=== PATIENT | female | born 1980 | race Two or more races ===

== ENCOUNTER 2020-09-12 04:24 | Emergency (ER) | payer OTHER, SELFPAY ==
[2020-09-12 04:33] VITALS: BP 135/97; PULSE 98; RESP 18; TEMP 36.9; O2SAT 99; BMI 24.2
--- NOTE | 2020-09-12 04:52 | ED.GENADULT ---
HPI - General Adult General Chief complaint: General Medical Stated complaint: Withdrawals Time Seen by Provider: 09/12/20 04:51 Source: patient Mode of arrival: ambulatory Limitations: no limitations History of Present Illness HPI narrative: 40-year-old female came in for evaluation of opiate withdrawal. Patient is receiving methadone at the methadone clinic currently take 2 mg a day, patient is at a tapering program went from 120 mg a day to now 2 mg a day over a year patient thinking it is too fast and rapid to taper down the dosage, patient has been having symptoms of opiate withdrawal of generalized body ache, runny nose, abdominal pain. Patient is asking for medicine to relax her. Related Data Allergies Allergy/AdvReac Type Severity Reaction Status Date / Time No Known Allergies Allergy Verified 09/12/20 04:32 Review of Systems Review of Systems: All other systems are reviewed and are negative Constitutional: Reports as per HPI and Reports no additional constitutional complaints Eyes: Reports as per HPI and Reports no additional eye complaints Reports system reviewed and no additional complaints, except as documented Cardiovascular: Reports as per HPI and Reports no additional cardiovascular complaints Respiratory: Reports as per HPI and Reports no additional respiratory complaints Gastrointestinal: Reports as per HPI and Reports no additional gastrointestinal complaints Genitourinary: Reports no additional female genitourinary complaints Musculoskeletal: Reports no additional musculoskeletal complaints Skin/Breast: Reports system reviewed and no additional complaints, except as docu Psychiatric: Reports no additional psychiatric complaints Endocrine: Reports no additional endocrine complaints Hematologic/Lymphatic: Reports no additional hematologic/lymphatic complaints Allergic/Immunologic: Reports no additional allergic/immunologic complaints Reports system reviewed and no additional complaints, except as documented and Reports Abnormal speech present [facility] Past Medical History Medical History Asthma Fibromyalgia Social History Social History Advance Directives: No Advance Directives Information Provided: No Physical Exam Vital Signs: Vital Signs: Last Vital Signs Temp 98.4 F 09/12/20 04:33 Pulse 86 09/12/20 06:12 Resp 18 09/12/20 04:33 BP 118/82 09/12/20 06:12 Pulse Ox 99 09/12/20 04:33 Body Mass Index 24.2 Vital signs have been reviewed as appeared to be correct. Blood pressure normal. Heart rate normal. Respiration rate normal. Temperature normal. Oxygen saturation normal. Appearance: Alert. Oriented X3. No acute distress. Head: Normal external exam. Normocephalic. Atraumatic. No Chapman signs noted. No raccoon eyes noted Eyes: PERRLA. EOMI. Conjunctiva and sclera normal. Eyelids normal. ENT: TM's Normal. Pharynx normal. Uvula midline. Moist mucous membranes. No trismus noted. No drooling noted. No muffled voice noted. Neck: Normal inspection. Neck supple. FROM. No adenopathy. Thyroid Normal. No meningeal signs. No neck mass noted. CVS: Normal heart rate and rhythm. Heart sound normal. No murmurs noted. Pulses normal throughout. Respiratory: No respiratory distress. Painless inspiration. Breath sounds normal. No wheezes/rales/rhonchi noted. Chest nontender. No accessory muscle usage noted or decreased air movement noted. Abdomen: Soft and nontender. Bowel sounds normal in all 4 quadrants. No distention noted. No organomegaly noted. No visible injury noted. Back: No CVA tenderness. Full range of motion noted. Skin: Skin warm and dry. Normal skin color. Normal skin turgor. No rashes/lesions/lacerations noted. Extremities: No lower extremity edema. Extremities exhibit normal range of motion. Extremities nontender. Neuro: Oriented X 3. No motor deficit. No sensory deficit. Reflexes normal. Course Course Course Narrative: Assessment and plan. Rapid taper of methadone from 120 mg to 2 mg daily managed by methadone clinic causing patient's symptoms. Patient was instructed to discuss with her physician at the methadone clinic to consider the tapering program, patient received Ativan/clonidine/Flexeril in the emergency department which relieved some of the symptoms. Discharge Plan Discharge Clinical Impression: Withdrawal from opioids Patient Disposition: Home, Self-Care Instructions: Methadone (By mouth) Additional Instructions: Follow-up with the methadone clinic today and discuss with your physician your symptoms. Referrals: Omaira Henderson MD [Primary Care Provider] - 2 days
[2020-09-12] MEDS: LORazepam 1 MG TABLET PO (05:12)
--- NOTE | 2020-09-12 05:14 | PC.NURSE ---
This RN resuming care. Pt medicated with Ativan per JUN. Pt resting in bed at this time, provided with a warm blanket for comfort. Continue to monitor.
--- NOTE | 2020-09-12 05:45 | PC.NURSE ---
Pt reports no relief of anxiety after Ativan at this time. Per pt, last time this happened they gave me Flexeril and Clonidine. MD aware.
--- NOTE | 2020-09-12 05:54 | PC.NURSE ---
MD at bedside discussing plan of care.
[2020-09-12 06:12] VITALS: BP 118/82; PULSE 86
[2020-09-12] MEDS: cloNIDine HCL 0.1 MG TABLET PO (06:12)
[2020-09-12] MEDS: Cyclobenzaprine HCl 10 MG TABLET PO (06:13)
--- NOTE | 2020-09-12 06:13 | PC.NURSE ---
Pt medicated per MAR. VSS.
--- NOTE | 2020-09-12 06:17 | PC.NURSE ---
Pt requesting prescriptions for Flexeril and Clonidine, states they are comfort medications and won't interfere with Methadone. This RN advising pt the best course of action is to adjust her Methadone at the clinic today and have a f/u appt with her PCP. Pt aware of plan to DC home.
== END 2020-09-12 06:22 | disposition home or self-care (01) ==
LOC: HO.ED 05:01
PROVIDERS: Emergency Provider Emergency Medicine; PCP Internal Medicine
DX: F11.23 Opioid dependence with withdrawal (principal)
CPT/HCPCS: 99283

== ENCOUNTER 2022-02-24 12:17 | Emergency (ER) | payer OTHER, SELFPAY ==
--- NOTE | ~2022-02-24 | XR_ITS ---
EXAMINATION: XR CHEST CLINICAL INFORMATION: Pain on inspiration COMPARISON: July 29, 2017 TECHNIQUE: PA view of the chest was obtained. FINDINGS: No significant abnormality is noted involving the heart, lungs, mediastinum, bony thorax or soft tissues. XR/XR chest 1V IMPRESSION: No acute disease.
[2022-02-24 13:33] VITALS: BP 127/72; PULSE 54; RESP 16; TEMP 36.4; O2SAT 100; BMI 26.6
--- NOTE | 2022-02-24 16:17 | ECG_ITS ---
Test Reason : BACK PAIN Blood Pressure : / mmHG Vent. Rate : 050 BPM Atrial Rate : 050 BPM P-R Int : 156 ms QRS Dur : 070 ms QT Int : 420 ms P-R-T Axes : 060 009 030 degrees QTc Int : 382 ms Sinus bradycardia Nonspecific T wave abnormality Abnormal ECG No previous ECGs available Referred By: Alyson Mayen Electronically Signed By:MARTHA CARMONA MD
--- NOTE | 2022-02-24 17:09 | ED_ITS ---
HPI - General Adult General Chief complaint: Back Pain/Injury Stated complaint: Back pain Time Seen by Provider: 02/24/22 16:00 Source: patient Mode of arrival: ambulatory History of Present Illness HPI narrative: 41-year-old female with a past medical history of asthma, fibromyalgia, presenting to the ED complaining of intermittent right-sided mid back pain x few days with intermittent radiation to chest. Admits to heavy lifting/cleaning which exacerbated symptoms. Reports similar symptoms in the past. Pain worse with movement, breathing, and palpation. Also reports dysuria. Denies fever, chills, SOB, abdominal pain, nausea/vomiting, history of clots, recent travel, hematuria or flank pain Onset (ago): day(s) Related Data Previous Rx's Medication Instructions Recorded acetaminophen 500 mg tablet 500 mg PO Q6H PRN fever or pain 02/24/22 (Tylenol Extra Strength) #14 tabs cyclobenzaprine 5 mg tablet 5 mg PO Q8H PRN pain (scale score 02/24/22 7-10) 5 days #14 tabs lidocaine 5 % topical patch 1 patch topical DAILY PRN pain #30 02/24/22 (Lidoderm) ea naproxen 500 mg tablet 500 mg PO BID PRN pain 10 days #20 02/24/22 tabs nitrofurantoin 100 mg PO Q12H 7 days #14 caps 02/24/22 monohydrate/macrocrystals 100 mg capsule (Macrobid) Allergies Allergy/AdvReac Type Severity Reaction Status Date / Time No Known Allergies Allergy Verified 09/12/20 04:32 Review of Systems Review of Systems: Constitutional: No Fever, No Chills, No Fatigue, No Malaise ENT/Mouth: No Ear Pain, No Nasal Congestion, No sore throat, No Rhinorrhea, No Swallowing Difficulty Eyes: No Eye Pain, No Swelling, No Redness, No Vision Changes Cardiovascular: +intermittent Chest Pain, No SOB, No Dyspnea on Exertion, No Orthopnea, No Edema, No Palpitations Respiratory: No Cough, No Sputum, No Dyspnea Gastrointestinal: No Nausea, No Vomiting, No Diarrhea, No Constipation, No Abdominal pain Genitourinary: No Dysuria, No Urinary Incontinence/retention, No Urgency, No Flank Pain Musculoskeletal: + joint pain, No Myalgias, No Joint Swelling Skin: No Skin Lesions, No rash Neuro: No Weakness, No Numbness, No Paresthesias, No Headache Yes all other systems are reviewed and are negative Constitutional: Constitutional: Reports as per [facility] Past Medical History Attestation statement: The following information was validated with the patient. Medical History Asthma Fibromyalgia Social History Social History Advance Directives: No Advance Directives Information Provided: No Physical Exam ED Vital Signs: Vital Signs - 24 hr 02/24/22 13:33 Temperature 97.6 F Pulse Rate 54 Respiratory Rate 16 Blood Pressure 127/72 Pulse Oximetry 100 Oxygen Delivery Method Room Air BMI result Body Mass Index 26.6 Const General: cooperative, healthy appearing and no acute distress Orientation/consciousness: patient oriented x3 Limitations: no limitations HENMT Head: Yes normal to inspection and Yes atraumatic Ears: hearing grossly normal bilaterally General nose exam: Normal external nose present Face and sinus: Yes normal facial exam Eyes General: appearance normal, both eyes and all related structures EOM: EOMs intact bilaterally Neck Neck: Yes normal visual inspection and Yes no meningeal signs Chest Chest palpation & inspection: normal inspection of the chest and no crepitus Resp Effort & Inspection: normal respiratory effort and no respiratory distress Auscultation: clear to auscultation bilaterally, no crackles, no rales, no rhonchi and no wheezes Cardio Rate: regular rate Heart sounds: S1 normal heart sound present and S2 normal heart sound present GI Inspection: Yes normal to inspection Palpation (GI): Soft to palpation, nontender, no guarding and not rigid General: Yes no CVA tenderness Back/Spine/Pelvis Other: No midline thoracic/lumbar spinous tenderness/step-off or deformity. +mild right -sided subscapular tenderness to palpation reproducing subjective complaint. Worse with right arm movement. Mild right trapezius muscle tenderness to palpation. Neurovascular intact distally Back: no CVA tenderness Skin Rashes: no rashes Wounds: no wounds Neuro General: patient oriented x3, tone normal and no meningeal signs Gait exam (Neuro): Normal gait present Extrem General: Yes normal to inspection Course Course Course Narrative: XR chest 1V IMPRESSION: No acute disease. ? -1800--UA contaminated but with moderate blood/rbc's, wbc's and leuk esterase > patient admits she is currently spotting as just had Nexplanon placed. Due to being symptomatic will treat for UTI Results discussed with patient including worrisome signs and symptoms and strict return precautions, and when to return to the emergency department. They verbalized understanding and feel safe for discharge at this time. Medications Administered Discontinued Medications Generic Name Dose Route Start Last Admin Trade Name Yelean PRN Reason Stop Dose Admin Cyclobenzaprine HCl 10 mg 02/24/22 17:16 02/24/22 17:32 Cyclobenzaprine Hcl 10 Mg Tablet PO 02/24/22 17:17 10 mg ONCE ONE Administration Ketorolac Tromethamine 30 mg 02/24/22 17:16 02/24/22 17:33 Ketorolac Tromethamine 30 Mg/Ml Vial IM 02/24/22 17:17 30 mg ONCE ONE Administration Medical Decision Making [facility] Narrative Medical decision making narrative: 41-year-old female with a past medical history of asthma, fibromyalgia, presen ting to the ED complaining of intermittent right-sided mid back pain x few days with intermittent radiation to chest. On exam vital signs stable, NAD, nontoxic appearing, pain reproducible on exam, lungs CTA, no pedal edema. Concern for MSK pain/strain. R/o UTI. Low suspicion for PE/pneumonia, ACS or cholecystitis/lithiasis. Plan: EKG, UA, & CXR Medical Records Medical records reviewed: Yes I reviewed the patient's medical records. Lab Data Lab results reviewed: Yes I reviewed the patient's lab results. Labs: Lab Results 02/24/22 Range/Units 17:27 Urine Color Yellow Urine Appearance Cloudy Urine pH 5.5 (5.0-9.0) Ur Specific [place] >= 1.030 H (1.005-1.025) Urine Protein Negative (Neg-Trace) mg/dL Urine Glucose (UA) Negative (Negative) mg/dL Urine Ketones Trace (Negative) mg/dL Urine Blood Moderate (2+) H (Negative) Urine Nitrite Negative (Negative) Ur Leukocyte Esterase Small (1+) H (Negative) Urine RBC >20 H (0-2) /HPF Urine WBC 6-10 H (0-5) /HPF Ur Squamous Epith Cells 6-10 (0-2) /HPF Urine Bacteria None Seen (None Seen) Hyaline Casts 0-2 (0-2) /LPF ECG Data Attestation: I personally reviewed and interpreted this ECG as follows: Interpretation: EKG sinus bradycardia rate 50, MO interval 156, QTc 382. No STEMI Discharge Plan Discharge Clinical Impression: Thoracic back pain Patient Disposition: Home, Self-Care Instructions: Back Pain (ED) Additional Instructions: your X-ray is unremarkable. You have a urine infection. Macrobid is an antibiotic take as prescribed Your EKG in unremarkable Your pain is likely musculoskeletal Flexeril is a muscle relaxer, take at night as it makes you drowsy, do not drive, drink alcohol, or operate machinery while taking it Toradol as an anti-inflammatory / pain medication, take with food Lidoderm patches are numbing patches, apply to painful area In addition take Tylenol at home If symptoms persist or worsen, pain becomes unbearable, you developed urinary retention or incontinence, or weakness return to the ED Prescriptions: New acetaminophen [Tylenol Extra Strength] 500 mg tablet 500 mg PO Q6H PRN (Reason: fever or pain) Qty: 14 0RF lidocaine [Lidoderm] 5 % adhesive patch,medicated 1 patch topical DAILY MDD remove after 12 hours PRN (Reason: pain) Qty: 30 0RF Rx Instructions: leave on most painful area for up to 12 hrs naproxen 500 mg tablet 500 mg PO BID PRN (Reason: pain) 10 Days Qty: 20 0RF cyclobenzaprine 5 mg tablet 5 mg PO Q8H PRN (Reason: pain (scale score 7-10)) 5 Days Qty: 14 0RF nitrofurantoin monohyd/m-cryst [Macrobid] 100 mg capsule 100 mg PO Q12H 7 Days Qty: 14 0RF Rx Instructions: must administer with a meal/food Referrals: Yara Hawley MD [Primary Care Provider] - 5 days
[2022-02-24] MEDS: Cyclobenzaprine HCl 10 MG TABLET PO (17:32)
[2022-02-24] MEDS: Ketorolac Tromethamine 30 MG/ML VIAL IM (17:33)
[2022-02-24 17:45] LABS: Appearance Urine Cloudy; Color Urine Yellow; Glucose Urine UA Negative (Negative); Leukocyte Esterase Urine Small (1+) (Negative); Nitrite Urine Negative (Negative); PH 5.5 (5.0-9.0); Specific Gravity - Urine >= 1.030 (1.005-1.025); UMIC TRIGGER UACC YES; Urine Blood Moderate (2+) (Negative); Urine Ketones Trace mg/dL (Negative); Urine Protein Negative (Neg-Trace)
[2022-02-24 17:47] LABS: Bacteria Urine None Seen (None Seen); Hyaline Casts Urine 0-2 /LPF (0-2); RBC Urine >20 /HPF (0-2); UACC Culture Trigger YES
== END 2022-02-24 18:13 | disposition home or self-care (01) ==
PROVIDERS: Physician Assistant; Emergency Provider Emergency Medicine; PCP Internal Medicine
DX: M54.6 Pain in thoracic spine (principal); N39.0 Urinary tract infection, site not specified
CPT/HCPCS: 71045; 81001; 87086; 93005; 96372; 99284; J1885

== ENCOUNTER 2022-04-12 11:10 | Emergency (ER) | payer OTHER, SELFPAY ==
--- NOTE | 2022-04-12 11:38 | ED_ITS ---
HPI - URI/Sore Throat General Chief Complaint: Headache Stated Complaint: sinus pain Time Seen by Provider: 04/12/22 13:24 Source: patient Mode of arrival: ambulatory Limitations: no limitations History of Present Illness HPI Narrative: 41-year-old female with a history of hypothyroidism, opiate use disorder on methadone here with 1 week of sinus pressure, sinus pain headache, congestion. Did call her primary care but they were unable to see her so she was referred into the emergency room for further evaluation. Patient denies any fevers, chills, cough, shortness of breath, chest pain. Related Data Previous Rx's Medication Instructions Recorded acetaminophen 500 mg tablet 500 mg PO Q6H PRN fever or pain 02/24/22 (Tylenol Extra Strength) #14 tabs cyclobenzaprine 5 mg tablet 5 mg PO Q8H PRN pain (scale score 02/24/22 7-10) 5 days #14 tabs lidocaine 5 % topical patch 1 patch topical DAILY PRN pain #30 02/24/22 (Lidoderm) ea naproxen 500 mg tablet 500 mg PO BID PRN pain 10 days #20 02/24/22 tabs nitrofurantoin 100 mg PO Q12H 7 days #14 caps 02/24/22 monohydrate/macrocrystals 100 mg capsule (Macrobid) cetirizine 10 mg tablet 10 mg PO DAILY #60 tabs 04/12/22 doxycycline monohydrate 100 mg 100 mg PO BID #20 caps 04/12/22 capsule fluticasone propionate 50 2 spray intranasal DAILY #16 grams 04/12/22 mcg/actuation nasal spray,suspension (Flonase Allergy Relief) Allergies Allergy/AdvReac Type Severity Reaction Status Date / Time No Known Allergies Allergy Verified 09/12/20 04:32 Review of Systems Review of Systems: Yes all other systems are reviewed and are negative Constitutional: Constitutional: Reports no additional constitutional complaints, Denies body ache(s), Denies chills, Denies fever(s), Denies headache(s) and Denies weakness Eyes: Eyes: Reports no additional eye complaints and Denies change in vision ENT: Reports system reviewed and no additional complaints, except as documented, Denies dizziness, Denies headache(s), Reports nasal congestion, Denies nasal discharge, Denies neck pain, Reports sinus pain and Reports sinus pressure Cardiovascular: Cardiovascular: Reports no additional cardiovascular complaints, Denies chest pain, Denies leg edema and Denies dyspnea Respiratory: Respiratory: Reports no additional respiratory complaints, Denies cough and Denies dyspnea Gastrointestinal: Gastrointestinal: Reports no additional gastrointestinal complaints, Denies abdominal pain, Denies diarrhea, Denies nausea and Denies vomiting Genitourinary: Genitourinary: Reports no additional female genitourinary complaints and Denies urinary incontinence Musculoskeletal: Musculoskeletal: Reports no additional musculoskeletal complaints, Denies back pain, Denies arthralgias, Denies joint swelling, Denies neck pain, Denies numbness and Denies tingling Integumentary/Breasts: Skin/Breast: Reports system reviewed and no additional complaints, except as docu and Denies rash Neurologic: Reports system reviewed and no additional complaints, except as documented, Denies Abnormal speech present, Denies dizziness, Denies headache(s), Denies numbness, Denies tingling and Denies weakness PMFSH Past Medical History Attestation statement: The following information was validated with the patient. Source: old records reviewed and nursing notes reviewed Medical History Asthma Fibromyalgia Social History Social History Advance Directives: No Advance Directives Information Provided: Yes Physical Exam Vital Signs: Vital Signs: Last Vital Signs Temp 98.2 F 04/12/22 11:39 Pulse 68 04/12/22 11:39 Resp 18 04/12/22 11:39 BP 116/66 04/12/22 11:39 Pulse Ox 100 04/12/22 11:39 O2 Del Method 04/12/22 11:39 BMI result Body Mass Index 26.6 Const: General: cooperative, healthy appearing, comfortable and no acute distress Orientation/consciousness: patient oriented x3 Limitations: no limitations HEENT: Head: Yes normal to inspection Ears: hearing grossly normal bilaterally and TM abnormal (Bilateral TM bulging with no erythema) General nose exam: Normal external nose present and Other nasal findings present (Nasal turbinate erythema) Face and sinus: Yes normal facial exam and Yes other (Sinus tenderness to palpate) Mouth: Normal oral and palatal mucosa present Throat: Yes posterior oropharynx normal, Yes tonsils normal and Yes uvula midline Eyes: General: appearance normal, both eyes and all related structures Pupils: Equal, round and reactive pupils present Neck: Neck: Yes normal visual inspection, Yes full ROM, Yes no lymphadenopathy and Yes no meningeal signs Chest: Chest palpation & inspection: normal inspection of the chest Resp: Effort & Inspection: normal respiratory effort Auscultation: clear to auscultation bilaterally Cardio: Rate: regular rate Rhythm: regular rhythm Peripheral pulses: Peripheral pulses 2+ throughout GI: Inspection: Yes normal to inspection Palpation (GI): Soft to palpation and nontender Auscultation: normal bowel sounds Back/Spine/Pelvis: Thoracic/Lumbar Spine: thoracic and lumbar spine normal to inspection Skin: General skin exam: no rashes or lesions noted Neuro: General: patient oriented x3, no meningeal signs, no focal motor deficits and normal sensation to monofilament Cranial nerves: Yes Equal, round and reactive pupils present Cognition (Neuro): normal cognition Speech: No Abnormal speech present Gait exam (Neuro): Normal gait present Motor exam (neuro): 5/5 motor strength present throughout Extrem: General: Yes normal to inspection Course Course Course Narrative: This is a rapid medical exam. Deferred additional HPI, ROS, PE to primary provider. 41 yo female with past medical history of hypothyroidism, OUD on meth adone, fibromyalgia here with one week of sinus pressure/pain, frontal headache. No fevers, chills. Will send testing for flu, covid and rsv. VSS Reevaluation(s) Reevaluation #1: 1330-testing for flu, COVID, RSV are negative. Exam is consistent with sinusitis. Patient will be treated with antibiotics due to symptoms greater than 5 days. Patient also requesting allergy refill and Flonase refill. Reviewed worrisome signs and symptoms of when to return to the emergency room. Comfortable plan for discharge home. Medical Decision Making Medical Decision Making [facility] Narrative: 41 yo female with past medical history of hypothyroidism, OUD on methadone, fibromyalgia here with one week of sinus pressure/pain, frontal headache. No fevers, chills. Will send testing for flu, covid and rsv. Exam is consistent with sinusitis Differential Diagnosis Differential Diagnoses: The differential diagnosis associated with the presentation includes Sinusitis, viral syndrome, otitis media Lab Data [facility] Lab Attestation statement: I reviewed the patient's lab results. Labs: Lab Results 12/29/22 Range/Units 11:52 Influenza Type A (PCR) NEGATIVE (Negative) Influenza Type B (PCR) NEGATIVE (Negative) RSV RNA Qual (PCR) NEGATIVE (Negative) SARS-CoV-2 RNA (RT-PCR) NEGATIVE (Negative) Discharge Plan Discharge Clinical Impression: Sinusitis Patient Disposition: Home, Self-Care Instructions: Sinusitis (ED) Additional Instructions: Testing for flu, COVID, RSV are negative Prescriptions: New doxycycline monohydrate 100 mg capsule 100 mg PO BID Qty: 20 0RF fluticasone propionate [Flonase Allergy Relief] 50 mcg/actuation spra y,suspension 2 spray intranasal DAILY Qty: 16 0RF Rx Instructions: administer into each nostril cetirizine 10 mg tablet 10 mg PO DAILY Qty: 60 0RF No Action acetaminophen [Tylenol Extra Strength] 500 mg tablet 500 mg PO Q6H PRN (Reason: fever or pain) Qty: 14 0RF lidocaine [Lidoderm] 5 % adhesive patch,medicated 1 patch topical DAILY MDD remove after 12 hours PRN (Reason: pain) Qty: 30 0RF Rx Instructions: leave on most painful area for up to 12 hrs naproxen 500 mg tablet 500 mg PO BID PRN (Reason: pain) 10 Days Qty: 20 0RF cyclobenzaprine 5 mg tablet 5 mg PO Q8H PRN (Reason: pain (scale score 7-10)) 5 Days Qty: 14 0RF nitrofurantoin monohyd/m-cryst [Macrobid] 100 mg capsule 100 mg PO Q12H 7 Days Qty: 14 0RF Rx Instructions: must administer with a meal/food Referrals: Yara Hawley MD [Primary Care Provider] - Interventions: ED Discharge Assessment Last Done: 04/12/22 13:29
[2022-04-12 11:39] VITALS: BP 116/66; PULSE 68; RESP 18; TEMP 36.8; O2SAT 100; BMI 26.6
[2022-04-12 12:36] LABS: Influenza A PCR NEGATIVE (Negative); Influenza B PCR NEGATIVE (Negative); Resp Syncy Virus RNA Qual PCR NEGATIVE (Negative); SARS COV2 PCR INHOUSE NEGATIVE (Negative)
== END 2022-04-12 13:36 | disposition home or self-care (01) ==
LOC: HO.ED 13:32
PROVIDERS: Nurse Practitioner Family; Emergency Provider Student in an Organized Health Care Education/Training Program; PCP Internal Medicine
DX: J32.9 Chronic sinusitis, unspecified (principal); Z20.828 Contact with and (suspected) exposure to other viral communicable diseases; F11.20 Opioid dependence, uncomplicated
CPT/HCPCS: 0241U; 99282; 99283

== ENCOUNTER 2022-07-27 18:32 | Emergency (ER) | payer OTHER, SELFPAY ==
--- NOTE | ~2022-07-27 | CT_ITS ---
EXAMINATION: CT ABDOMEN AND PELVIS WITHOUT CONTRAST CLINICAL INFORMATION: Right lower abdominal pain. Question kidney stone. COMPARISON: None available. TECHNIQUE: Multidetector volumetric imaging was performed from the superior aspect of the liver through the pubic symphysis. Sagittal and coronal reformatted images were obtained on the technologist's workstation. This CT examination was performed using dose optimization techniques as appropriate, variously including the following: *Automated exposure control *Adjustment of mA and/or kV according to patient size (this includes techniques or standardized protocols for targeted exams where dose is matched to indication/reason for exam; i.e. extremities or head) *Use of iterative reconstruction technique DLP: 583 mGy-cm FINDINGS: LUNG BASES: The visualized lung bases are unremarkable. LIVER, GALLBLADDER, AND BILIARY TREE: The liver is normal in size, shape, and attenuation. No focal hepatic lesion or biliary ductal dilatation is present. Diminutive appearing gallbladder. No stones are seen. No inflammation. PANCREAS: Unremarkable. SPLEEN: Unremarkable. ADRENAL GLANDS: Unremarkable. KIDNEYS AND URETERS: The kidneys are normal in size, shape, and attenuation. No hydronephrosis or hydroureter. 0.3 cm left lower pole renal calculus is 9.5 cm from the posterior axillary line. BLADDER: Unremarkable. GASTROINTESTINAL TRACT: The stomach is unremarkable. Normal caliber small bowel. No obstruction. Normal appendix. No colonic wall thickening or inflammation. Mild diffuse colonic stool burden with mild distention of the rectum with stool. ABDOMINAL WALL: No significant hernia is appreciated. LYMPH NODES: Normal. VASCULAR: Unremarkable. PELVIC VISCERA: Unremarkable appearance of the uterus. 3.1 cm left adnexal dermoid. OSSEOUS STRUCTURES: No acute or suspicious osseous abnormality. CT/CT abdomen pelvis wo IV con IMPRESSION: 1. No acute findings in the abdomen or pelvis. No hydronephrosis. Nonobstructing 0.3 cm left lower pole renal calculus. 2. 3.1 cm left adnexal dermoid. Fleischner guidelines were followed.
--- NOTE | ~2022-07-27 | XR_ITS ---
EXAMINATION: XR CHEST CLINICAL INFORMATION: Syncope. COMPARISON: Chest radiograph 02/24/2022. TECHNIQUE: 2 views of the chest were obtained. FINDINGS: No significant abnormality is noted involving the heart, lungs, mediastinum, bony thorax or soft tissues. XR/XR chest 2V IMPRESSION: Unremarkable examination.
--- NOTE | 2022-07-27 18:48 | ED.GENADULT ---
HPI - General Adult General Chief complaint: General Medical <ADDISON Flowers - Last Filed: 07/27/22 18:49> Stated complaint: not feeling well <ADDISON Flowers Last Filed: 07/27/22 18:49> Time Seen by Provider: 07/28/22 00:53 <ADDISON Flowers Last Filed: 07/27/22 18:49> Source: patient <ADDISON López Last Filed: 07/28/22 01:25> Mode of arrival: ambulatory <ADDISON López Last Filed: 07/28/22 01:25> Limitations: no limitations <ADDISON López Last Filed: 07/28/22 01:25> History of Present Illness HPI narrative: 42-year-old female hepatitis-C, fibromyalgia and asthma presenting to the emergency department for feeling unwell for the past week. Patient reports fatigue, malaise, myalgias, lower abdominal discomfort, urinary frequency, urgency, subjective fevers and chills as well as sinus congeswtion. Abdominal discomfort is localized in the suprapubic region described as intermittent crampy pain, worried because she was told she has a R. sided kidney stone.. She tells me that she feels so weak that she feels like she is going to pass out constantly. However has not actually passed out. Tells me she has little energy to do anything. Denies any recent sick contacts. Denies chest pain, shortness of breath, nausea, vomiting, hematuria. To mention, patient currently on amoxicillin for sinusitis and is requesting to get changed to a different antibiotic because she feels like amoxicillin is not a good match for her and is making her feel awful <ADDISON López Last Filed: 07/28/22 01:25> Related Data Home medications: Home Medications Medication Instructions Recorded Confirmed baclofen 10 mg tablet 10 mg PO TID 07/04/22 cholecalciferol (vitamin D3) 50 50 mcg PO DAILY 07/04/22 mcg (2,000 unit) capsule docusate sodium 100 mg capsule 100 mg PO BID 07/04/22 hydroxyzine pamoate 25 mg capsule 25 mg PO TID 07/04/22 levothyroxine 25 mcg tablet 25 mcg PO DAILY 07/04/22 polyethylene glycol 3350 17 g PO 07/04/22 gram/dose oral powder (Gavilax) trazodone 50 mg tablet 25 mg PO BEDTIME PRN 07/04/22 Previous Rx's Medication Instructions Recorded acetaminophen 500 mg tablet 500 mg PO Q6H PRN fever or pain 02/24/22 (Tylenol Extra Strength) #14 tabs cyclobenzaprine 5 mg tablet 5 mg PO Q8H PRN pain (scale score 02/24/22 7-10) 5 days #14 tabs lidocaine 5 % topical patch 1 patch topical DAILY PRN pain #30 02/24/22 (Lidoderm) ea naproxen 500 mg tablet 500 mg PO BID PRN pain 10 days #20 02/24/22 tabs nitrofurantoin 100 mg PO Q12H 7 days #14 caps 02/24/22 monohydrate/macrocrystals 100 mg capsule (Macrobid) cetirizine 10 mg tablet 10 mg PO DAILY #60 tabs 04/12/22 fluticasone propionate 50 2 spray intranasal DAILY #16 grams 04/12/22 mcg/actuation nasal spray,suspension (Flonase Allergy Relief) cefuroxime axetil 250 mg tablet 250 mg PO BID 7 days #14 tabs 07/28/22 doxycycline hyclate 100 mg capsule 100 mg PO BID 10 days #20 caps 07/28/22 prednisone 20 mg tablet 40 mg PO DAILY 5 days #10 tabs 07/28/22 <ADDISON Flowers - Last Filed: 07/27/22 18:49> Allergies/adverse reactions: Allergies Allergy/AdvReac Type Severity Reaction Status Date / Time almond Allergy Itching Verified 07/27/22 18:53 cruz [cherries] Allergy Itching Verified 07/27/22 18:53 peach Allergy Itching Verified 07/27/22 18:53 <ADDISON Flowers - Last Filed: 07/27/22 18:49> Review of Systems Review of Systems: Constitutional : No Weight loss, No Fever, No Chills, + Fatigue, + Malaise ENT/Mouth : No sore throat, No Rhinorrhea Eyes: No Eye Pain, No Swelling, No Redness Cardiovascular : No Chest Pain, No SOB, No Dyspnea on Exertion, No Orthopnea, No Edema, No Palpitations Respiratory : No Cough, No Sputum, No Wheezing Gastrointestinal : No Nausea, No Vomiting, No Diarrhea, No Constipation, + abdominal Pain, No Hematochezia, No Melena Genitourinary : No Dysuria, No Urinary Frequency, No Hematuria, Musculoskeletal : No joint pain, + Myalgias, No Joint Swelling Skin : No Skin Lesions, No rash Neuro : No Weakness, No Numbness, No Dizziness, No Headache Psych : No Anxiety/Panic, No Depression All other systems reviewed and are negative <ADDISON López - Last Filed: 07/28/22 01:25> Yes all other systems are reviewed and are negative <ADDISON López - Last Filed: 07/28/22 01:25> [facility] Past Medical History Attestation statement: The following information was validated with the patient. <ADDISON López - Last Filed: 07/28/22 01:25> Source: old records reviewed and nursing notes reviewed <ADDISON López - Last Filed: 07/28/22 01:25> Medical History: Medical History Arthralgia of multiple joints Asthma Chronic hepatitis C without mention of hepatic coma Fibromyalgia Pain and swelling of right wrist Tobacco use <ADDISON Flowers - Last Filed: 07/27/22 18:49> Surgical History: Surgical History (Updated 07/04/22 @ 11:01 by SNEHA Plummer) History of liver biopsy Hx of section <ADDISON Flowers - Last Filed: 07/27/22 18:49> Family History Family History: Family History (Updated 07/04/22 @ 11:02 by SNEHA Plummer) Mother Ovarian cancer, Onset Age: 54 Sister Endometriosis <ADDISON Flowers - Last Filed: 07/27/22 18:49> Social History Social History: Social History (Updated 07/04/22 @ 11:03 by SNEHA Plummer) Alcohol intake: current Alcohol intake frequency: holidays/special occasions only Patient Tobacco Use Status: Current everyday Tobacco user Tobacco use type: Cigarette Cigarette Packs Per Day: 0.50 e-Cigarette/Vaping Use: Currently Using Advance Directives: No Advance Directives Information Provided: No <ADDISON Flowers Last Filed: 07/27/22 18:49> Physical Exam ED Vital Signs: Vital Signs - 24 hr 07/27/22 18:50 07/28/22 00:12 Temperature 96.3 F L 97.9 F Pulse Rate 110 H 61 Respiratory Rate 16 16 Blood Pressure 152/96 H 124/72 Pulse Oximetry 99 100 Oxygen Delivery Method Room Air Room Air BMI result Body Mass Index 26.7 <ADDISON Flowers Last Filed: 07/27/22 18:49> Vital Signs - 24 hr 07/27/22 18:50 07/28/22 00:12 Temperature 96.3 F L 97.9 F Pulse Rate 110 H 61 Respiratory Rate 16 16 Blood Pressure 152/96 H 124/72 Pulse Oximetry 99 100 Oxygen Delivery Method Room Air Room Air BMI result Body Mass Index 26.7 vss <ADDISON López Last Filed: 07/28/22 01:25> Appearance: Alert.? Oriented X3.? No acute distress.? Head: Normocephalic, atraumatic, no step-offs or deformities. Discomfort with palpation of facial sinuses Eyes: Pupils equal, round and reactive to light.? ENT: Pharynx normal.? Neck: Normal inspection.? Neck supple.? CVS: Normal heart rate and rhythm.? Pulses normal.? Respiratory: No respiratory distress.? Breath sounds normal.? Abdomen: Soft and nontender.? Skin: Skin warm and dry.? Normal skin color.? Normal skin turgor.? Extremities: No lower extremity edema.? No calf ttp. 5/5 strength to bilateral upper and lower extremities Back: no CVA tenderness bilaterally Neuro: Oriented X 3.? No motor deficit.? No sensory deficit. CN 2-12 intact <ADDISON López Last Filed: 07/28/22 01:25> Course Course Course Narrative: RME performed by Makayla Weber PA-C. Patient is a 42 year old assigned female at presenting to the emergency department feeling generally unwell. Labs, imaging, and swabs ordered. Patient placed back in the waiting room pending room availability and results. <ADDISON Flowers Last Filed: 07/27/22 18:49> Reevaluation(s) Reevaluation #1: CBC with slight leukocytosis, chemistry with no acute findings requiring intervention. Negative beta-hCG. UA positive nitrates and leukocyte esterase is will treat with Ceftin outpatient for UTI. Likely reason for patient's suprapubic/lower abdominal discomfort. COVID negative. Chest x-ray unremarkable. EKG nonischemic. No signs of ACS. Patient without risk factors. CT of the abdomen and pelvis pending. <ADDISON López - Last Filed: 07/28/22 01:25> Time: 00:58 <ADDISON López - Last Filed: 07/28/22 01:25> Reevaluation #2: Sign out to Dr. Brady pending CT scan <ADDISON López - Last Filed: 07/28/22 01:25> Time: 01:15 <ADDISON López - Last Filed: 07/28/22 01:25> Medical Decision Making Medical Decision Making [facility] Narrative: 0059 42-year-old female presents with near-syncope, fatigue, malaise, myalgias, lower abdominal discomfort, urinary frequency, urgency, sinus congestion subjective fevers and chills. Physical exam with discomfort with palpation of facial sinuses. Neuro nonfocal. Cerebellar intact. Concerns for sinusitis with acute urinary tract infection. No signs of acute abdomen, cholecystitis, diverticulitis, pancreatitis, appendicitis. History and physical exam not consistent with ectopic or torsion. Near syncopal episodes likely secondary to myalgia, fatigue and malaise, I do not suspect intracranial etiology, stroke, posterior stroke. Will rule out orthostatic hypotension and electrolyte abnormalities. Unlikely that this is PE or ACS. Plan at this time labs, imaging, urine, viral testing. <ADDISON López Last Filed: 07/28/22 01:25> Differential Diagnosis Differential Diagnoses: The differential diagnosis associated with the presentation includes <ADDISON López Last Filed: 07/28/22 01:25> Concerns for possible viral illness versus UTI. No signs of acute abdomen, cholecystitis, diverticulitis, pancreatitis, appendicitis. History and physical exam not consistent with ectopic or torsion. Near syncopal episodes likely secondary to myalgia, fatigue and malaise, I do not suspect intracranial etiology, stroke, posterior stroke. Will rule out orthostatic hypotension and electrolyte abnormalities. Unlikely that this is PE or ACS. <ADDISON López - Last Filed: 07/28/22 01:25> Admission/Observation Consideration of admission/observation: Escalation of care including admission/observation considered <ADDISON López - Last Filed: 07/28/22 01:25> Lab Data MDM Lab Attestation statement: I reviewed the patient's lab results. <ADDISON López - Last Filed: 07/28/22 01:25> Result Diagrams: 07/27/22 19:28 07/27/22 19:28 <ADDISON Flowers - Last Filed: 07/27/22 18:49> Labs: Lab Results 07/27/22 07/27/22 07/27/22 Range/Units 19:28 19:28 19:28 WBC 11.2 H (4.8-10.8) X10*3/uL RBC 4.44 (4.20-5.50) X10*6/uL Hgb 13.0 (12.0-16.0) g/dl Hct 38.8 (37.0-47.0) % MCV 87.4 (80.0-98.0) fL MCH 29.3 (27.0-33.0) pg MCHC 33.5 (31.0-35.0) g/dl RDW 12.2 (11.0-16.0) % Plt Count 319 (160-400) X10*3/uL MPV 9.4 (9.4-12.3) fL Immature Gran % (Auto) 0.3 (0.0-0.4) % Neut % (Auto) 72.5 (45-73) % Lymph % (Auto) 19.8 L (20-40) % [place] % (Auto) 5.9 (2-11) % Eos % (Auto) 0.7 (0-4) % Baso % (Auto) 0.8 (0-2) % Lymph # (Auto) 2.2 (1.2-4.9) X10*3/uL [place] # (Auto) 0.7 (0.1-1.2) X10*3/uL Eos # (Auto) 0.1 (0.0-0.4) X10*3/uL Baso # (Auto) 0.1 (0.0-0.2) X10*3/uL Abs Immat Gran (auto) 0.03 (0.00-0.03) X10*3/uL Absolute Neuts (auto) 8.1 (2.0-8.3) x10*3/uL Absolute Nucleated RBC 0.000 (0.0-0.012) X10*3/uL Nucleated RBC % (auto) 0.0 (0.0-0.2) /100WBC Sodium 142 (135-145) mmol/L Potassium 4.1 (3.3-5.1) mmol/L Chloride 107 (96-108) mmol/L Carbon Dioxide 25 (22-29) mmol/L Anion Gap 14 (12-20) BUN 13 (9-16) mg/dL Creatinine 1.17 (0.5-1.4) mg/dL Estim Creat Clear Calc 68.6 Estimated GFR 51 Random Glucose 93 (60-115) mg/dL Calcium 10.0 (8.4-10.2) mg/dL Magnesium 2.1 (1.6-2.6) mg/dL Total Bilirubin 0.5 (0.0-1.0) mg/dL AST 23 (5-31) U/L ALT 18 (0-31) U/L Alkaline Phosphatase 67 (39-117) U/L Total Protein 8.3 H (6.5-8.0) g/dL Albumin 4.6 (3.5-5.0) g/dL Beta HCG, Quant mIU/mL Urine Color Urine Appearance Urine pH (5.0-9.0) Ur Specific [place] (1.005-1.025) Urine Protein (Neg-Trace) mg/dL Urine Glucose (UA) (Negative) mg/dL Urine Ketones (Negative) mg/dL Urine Blood (Negative) Urine Nitrite (Negative) Ur Leukocyte Esterase (Negative) Urine RBC (0-2) /HPF Urine WBC (0-5) /HPF Ur Squamous Epith Cells (0-2) /HPF Urine Bacteria (None Seen) Hyaline Casts (0-2) /LPF COVID-19 ([facility]) Negative (Negative) COVID-19 Clin Com See Note 07/27/22 07/28/22 Range/Units 19:28 00:17 WBC (4.8-10.8) X10*3/uL RBC (4.20-5.50) X10*6/uL Hgb (12.0-16.0) g/dl Hct (37.0-47.0) % MCV (80.0-98.0) fL MCH (27.0-33.0) pg MCHC (31.0-35.0) g/dl RDW (11.0-16.0) % Plt Count (160-400) X10*3/uL MPV (9.4-12.3) fL Immature Gran % (Auto) (0.0-0.4) % Neut % (Auto) (45-73) % Lymph % (Auto) (20-40) % [place] % (Auto) (2-11) % Eos % (Auto) (0-4) % Baso % (Auto) (0-2) % Lymph # (Auto) (1.2-4.9) X10*3/uL [place] # (Auto) (0.1-1.2) X10*3/uL Eos # (Auto) (0.0-0.4) X10*3/uL Baso # (Auto) (0.0-0.2) X10*3/uL Abs Immat Gran (auto) (0.00-0.03) X10*3/uL Absolute Neuts (auto) (2.0-8.3) x10*3/uL Absolute Nucleated RBC (0.0-0.012) X10*3/uL Nucleated RBC % (auto) (0.0-0.2) /100WBC Sodium (135-145) mmol/L Potassium (3.3-5.1) mmol/L Chloride (96-108) mmol/L Carbon Dioxide (22-29) mmol/L Anion Gap (12-20) BUN (9-16) mg/dL Creatinine (0.5-1.4) mg/dL Estim Creat Clear Calc Estimated GFR Random Glucose (60-115) mg/dL Calcium (8.4-10.2) mg/dL Magnesium (1.6-2.6) mg/dL Total Bilirubin (0.0-1.0) mg/dL AST (5-31) U/L ALT (0-31) U/L Alkaline Phosphatase (39-117) U/L Total Protein (6.5-8.0) g/dL Albumin (3.5-5.0) g/dL Beta HCG, Quant < 2 mIU/mL Urine Color Dark Yellow Urine Appearance Clear Urine pH 5.5 (5.0-9.0) Ur Specific [place] 1.025 (1.005-1.025) Urine Protein 30 (1+) H (Neg-Trace) mg/dL Urine Glucose (UA) Negative (Negative) mg/dL Urine Ketones Trace (Negative) mg/dL Urine Blood Large (3+) H (Negative) Urine Nitrite Positive H (Negative) Ur Leukocyte Esterase Trace H (Negative) Urine RBC 3-5 H (0-2) /HPF Urine WBC 0-5 (0-5) /HPF Ur Squamous Epith Cells 3-5 (0-2) /HPF Urine Bacteria None Seen (None Seen) Hyaline Casts 0-2 (0-2) /LPF COVID-19 ([facility]AL[facility]) (Negative) COVID-19 Clin Com <ADDISON Flowers - Last Filed: 07/27/22 18:49> Lab Results 07/27/22 07/27/22 07/27/22 Range/Units 19:28 19:28 19:28 WBC 11.2 H (4.8-10.8) X10*3/uL RBC 4.44 (4.20-5.50) X10*6/uL Hgb 13.0 (12.0-16.0) g/dl Hct 38.8 (37.0-47.0) % MCV 87.4 (80.0-98.0) fL MCH 29.3 (27.0-33.0) pg MCHC 33.5 (31.0-35.0) g/dl RDW 12.2 (11.0-16.0) % Plt Count 319 (160-400) X10*3/uL MPV 9.4 (9.4-12.3) fL Immature Gran % (Auto) 0.3 (0.0-0.4) % Neut % (Auto) 72.5 (45-73) % Lymph % (Auto) 19.8 L (20-40) % [place] % (Auto) 5.9 (2-11) % Eos % (Auto) 0.7 (0-4) % Baso % (Auto) 0.8 (0-2) % Lymph # (Auto) 2.2 (1.2-4.9) X10*3/uL [place] # (Auto) 0.7 (0.1-1.2) X10*3/uL Eos # (Auto) 0.1 (0.0-0.4) X10*3/uL Baso # (Auto) 0.1 (0.0-0.2) X10*3/uL Abs Immat Gran (auto) 0.03 (0.00-0.03) X10*3/uL Absolute Neuts (auto) 8.1 (2.0-8.3) x10*3/uL Absolute Nucleated RBC 0.000 (0.0-0.012) X10*3/uL Nucleated RBC % (auto) 0.0 (0.0-0.2) /100WBC Sodium 142 (135-145) mmol/L Potassium 4.1 (3.3-5.1) mmol/L Chloride 107 (96-108) mmol/L Carbon Dioxide 25 (22-29) mmol/L Anion Gap 14 (12-20) BUN 13 (9-16) mg/dL Creatinine 1.17 (0.5-1.4) mg/dL Estim Creat Clear Calc 68.6 Estimated GFR 51 Random Glucose 93 (60-115) mg/dL Calcium 10.0 (8.4-10.2) mg/dL Magnesium 2.1 (1.6-2.6) mg/dL Total Bilirubin 0.5 (0.0-1.0) mg/dL AST 23 (5-31) U/L ALT 18 (0-31) U/L Alkaline Phosphatase 67 (39-117) U/L Total Protein 8.3 H (6.5-8.0) g/dL Albumin 4.6 (3.5-5.0) g/dL Beta HCG, Quant mIU/mL Urine Color Urine Appearance Urine pH (5.0-9.0) Ur Specific [place] (1.005-1.025) Urine Protein (Neg-Trace) mg/dL Urine Glucose (UA) (Negative) mg/dL Urine Ketones (Negative) mg/dL Urine Blood (Negative) Urine Nitrite (Negative) Ur Leukocyte Esterase (Negative) Urine RBC (0-2) /HPF Urine WBC (0-5) /HPF Ur Squamous Epith Cells (0-2) /HPF Urine Bacteria (None Seen) Hyaline Casts (0-2) /LPF COVID-19 ([facility]) Negative (Negative) COVID-19 Clin Com See Note 07/27/22 07/28/22 Range/Units 19:28 00:17 WBC (4.8-10.8) X10*3/uL RBC (4.20-5.50) X10*6/uL Hgb (12.0-16.0) g/dl Hct (37.0-47.0) % MCV (80.0-98.0) fL MCH (27.0-33.0) pg MCHC (31.0-35.0) g/dl RDW (11.0-16.0) % Plt Count (160-400) X10*3/uL MPV (9.4-12.3) fL Immature Gran % (Auto) (0.0-0.4) % Neut % (Auto) (45-73) % Lymph % (Auto) (20-40) % [place] % (Auto) (2-11) % Eos % (Auto) (0-4) % Baso % (Auto) (0-2) % Lymph # (Auto) (1.2-4.9) X10*3/uL [place] # (Auto) (0.1-1.2) X10*3/uL Eos # (Auto) (0.0-0.4) X10*3/uL Baso # (Auto) (0.0-0.2) X10*3/uL Abs Immat Gran (auto) (0.00-0.03) X10*3/uL Absolute Neuts (auto) (2.0-8.3) x10*3/uL Absolute Nucleated RBC (0.0-0.012) X10*3/uL Nucleated RBC % (auto) (0.0-0.2) /100WBC Sodium (135-145) mmol/L Potassium (3.3-5.1) mmol/L Chloride (96-108) mmol/L Carbon Dioxide (22-29) mmol/L Anion Gap (12-20) BUN (9-16) mg/dL Creatinine (0.5-1.4) mg/dL Estim Creat Clear Calc Estimated GFR Random Glucose (60-115) mg/dL Calcium (8.4-10.2) mg/dL Magnesium (1.6-2.6) mg/dL Total Bilirubin (0.0-1.0) mg/dL AST (5-31) U/L ALT (0-31) U/L Alkaline Phosphatase (39-117) U/L Total Protein (6.5-8.0) g/dL Albumin (3.5-5.0) g/dL Beta HCG, Quant < 2 mIU/mL Urine Color Dark Yellow Urine Appearance Clear Urine pH 5.5 (5.0-9.0) Ur Specific [place] 1.025 (1.005-1.025) Urine Protein 30 (1+) H (Neg-Trace) mg/dL Urine Glucose (UA) Negative (Negative) mg/dL Urine Ketones Trace (Negative) mg/dL Urine Blood Large (3+) H (Negative) Urine Nitrite Positive H (Negative) Ur Leukocyte Esterase Trace H (Negative) Urine RBC 3-5 H (0-2) /HPF Urine WBC 0-5 (0-5) /HPF Ur Squamous Epith Cells 3-5 (0-2) /HPF Urine Bacteria None Seen (None Seen) Hyaline Casts 0-2 (0-2) /LPF COVID-19 ([facility]) (Negative) COVID-19 Clin Com <ADDISON López - Last Filed: 07/28/22 01:25> Independent Interpretation I performed an independent interpretation of an: Plain X-Ray (Unremarkable) <ADDISON López - Last Filed: 07/28/22 01:25> Radiology Impression Discussion of test interpretation with radiology: I have reviewed the radiologist's reading. <ADDISON López Last Filed: 07/28/22 01:25> Core Measures AMI core measures followed: Yes <ADDISON López Last Filed: 07/28/22 01:25> Measure exclusions: not indicated <ADDISON López Last Filed: 07/28/22 01:25> Critical Care Time Critical Care Time Critical Care Time: No <ADDISON López Last Filed: 07/28/22 01:25> Discharge Plan Discharge Clinical Impression: UTI (urinary tract infection), Abdominal pain, Near syncope, Sinusitis <ADDISON Flowers Last Filed: 07/27/22 18:49> Patient Disposition: Home, Self-Care <ADDISON Flowers Last Filed: 07/27/22 18:49> Instructions: Urinary Tract Infection in Women (DC), Sinusitis (ED) <ADDISON Flowers Last Filed: 07/27/22 18:49> Additional Instructions: Take your medications as prescribed. If you were prescribed antibiotics today, it is important that you take your medication to their entirety, do not skip any doses, do not finish them early. Follow-up with your primary care provider this week. Follow-up with urology. Return to the emergency department with new or worsening symptoms. Such as fevers, chills, chest pain, shortness of breath, nausea, vomiting, dizziness, headache, vision changes, lethargy In case of emergency call 911 Drink plenty of fluids You can stop taking amoxicillin and start doxycycline. Since he report amoxicillin is causing adverse effects free. Ceftin for UTI. <ADDISON Flowers Last Filed: 07/27/22 18:49> Prescriptions: New cefuroxime axetil 250 mg tablet 250 mg PO BID 7 Days Qty: 14 0RF doxycycline hyclate 100 mg capsule 100 mg PO BID 10 Days Qty: 20 0RF prednisone 20 mg tablet 40 mg PO DAILY 5 Days Qty: 10 0RF No Action acetaminophen [Tylenol Extra Strength] 500 mg tablet 500 mg PO Q6H PRN (Reason: fever or pain) Qty: 14 0RF lidocaine [Lidoderm] 5 % adhesive patch,medicated 1 patch topical DAILY MDD remove after 12 hours PRN (Reason: pain) Qty: 30 0RF Rx Instructions: leave on most painful area for up to 12 hrs naproxen 500 mg tablet 500 mg PO BID PRN (Reason: pain) 10 Days Qty: 20 0RF cyclobenzaprine 5 mg tablet 5 mg PO Q8H PRN (Reason: pain (scale score 7-10)) 5 Days Qty: 14 0RF nitrofurantoin monohyd/m-cryst [Macrobid] 100 mg capsule 100 mg PO Q12H 7 Days Qty: 14 0RF Rx Instructions: must administer with a meal/food fluticasone propionate [Flonase Allergy Relief] 50 mcg/actuation spray,suspension 2 spray intranasal DAILY Qty: 16 0RF Rx Instructions: administer into each nostril cetirizine 10 mg tablet 10 mg PO DAILY Qty: 60 0RF hydroxyzine pamoate 25 mg capsule 25 mg PO TID baclofen 10 mg tablet 10 mg PO TID trazodone 50 mg tablet 25 mg PO BEDTIME PRN cholecalciferol (vitamin D3) 50 mcg (2,000 unit) capsule 50 mcg PO DAILY levothyroxine 25 mcg tablet 25 mcg PO DAILY docusate sodium 100 mg capsule 100 mg PO BID polyethylene glycol 3350 [Gavilax] 17 gram/dose powder PO <ADDISON Flowers - Last Filed: 07/27/22 18:49> Referrals: [facility] [Provider Group] - 3 days Viky Aldrich MD [Primary Care Provider] - 2 days <ADDISON Flowers - Last Filed: 07/27/22 18:49> Stand Alone Forms: Work/School Release <ADDISON Flowers - Last Filed: 07/27/22 18:49>
--- NOTE | 2022-07-27 18:49 | ECG_ITS ---
Test Reason : SYNCOPE Blood Pressure : / mmHG Vent. Rate : 073 BPM Atrial Rate : 073 BPM P-R Int : 146 ms QRS Dur : 068 ms QT Int : 362 ms P-R-T Axes : 058 -09 037 degrees QTc Int : 398 ms Normal sinus rhythm Possible Left atrial enlargement Nonspecific T wave abnormality Abnormal ECG When compared with ECG of 24-FEB-2022 16:48, No significant change was found Referred By: Makayla Weber Electronically Signed By:ALEX TOSCANO MD
[2022-07-27 18:50] VITALS: BP 152/96; PULSE 110; RESP 16; TEMP 35.7; O2SAT 99; BMI 26.7
[2022-07-27 19:33] LABS: MANUAL DIFF FLAG NO
[2022-07-27 19:39] LABS: Basophils Absolute Auto 0.1 X10*3/uL (0.0-0.2); Basophils Percent Auto 0.8 % (0-2); Eosinophils Absolute Auto 0.1 X10*3/uL (0.0-0.4); Eosinophils Percent Auto 0.7 % (0-4); Hematocrit 38.8 % (37.0-47.0); Imm Gran Abs Auto 0.03 X10*3/uL (0.00-0.03); Imm Gran Pct Auto 0.3 % (0.0-0.4); Lymphocytes Absolute Auto 2.2 X10*3/uL (1.2-4.9); Lymphocytes Percent Auto 19.8 % (20-40); Mean Corpuscular HGB Conc 33.5 g/dl (31.0-35.0); Mean Corpuscular Hemoglobin 29.3 pg (27.0-33.0); Mean Corpuscular Volume 87.4 fL (80.0-98.0); Mean Platelet Volume 9.4 fL (9.4-12.3); Monocytes Absolute Auto 0.7 X10*3/uL (0.1-1.2); Monocytes Percent Auto 5.9 % (2-11); Neutrophils Absolute Auto 8.1 x10*3/uL (2.0-8.3); Neutrophils Percent Auto 72.5 % (45-73); Platelet Count 319 X10*3/uL (160-400); Red Blood Count 4.44 X10*6/uL (4.20-5.50); Red Cell Distribution Width 12.2 % (11.0-16.0); White Blood Count 11.2 X10*3/uL (4.8-10.8)
[2022-07-27 19:50] LABS: IDNOW Serial# 9DB6401D
[2022-07-27 19:51] LABS: COVID-19 Test Negative (Negative)
[2022-07-27 19:57] LABS: Alanine Aminotransferase 18 U/L (0-31); Albumin Level 4.6 g/dL (3.5-5.0); Alkaline Phosphatase 67 U/L (39-117); Anion Gap 14 (12-20); Aspartate Amino Transferase 23 U/L (5-31); Bilirubin Total 0.5 mg/dL (0.0-1.0); Blood Urea Nitrogen 13 mg/dL (9-16); Carbon Dioxide 25 mmol/L (22-29); Chloride 107 mmol/L (96-108); Creatinine Clr Calc Pharmacy 68.6; Estimated Glomerular Filt Rate 51; Glucose Random 93 mg/dL (60-115); Magnesium 2.1 mg/dL (1.6-2.6); Potassium 4.1 mmol/L (3.3-5.1); Sodium 142 mmol/L (135-145); Total Protein 8.3 g/dL (6.5-8.0)
[2022-07-27 20:06] LABS: HCG Quantitative < 2 mIU/mL
[2022-07-28 00:12] VITALS: BP 124/72; PULSE 61; RESP 16; TEMP 36.6; O2SAT 100
--- NOTE | 2022-07-28 00:20 | PC.NURSE ---
Pt presents with c/o sinus pressure, body aches, chills, nausea, and tinnitus on right side. Symptoms started after being put on amoxicillin for suinus infection. Takes methadone regularly. Expereicned a similar occurance in March of last year after being treated with an antibiotic. Pt also reports some urgency and burning with urination and a known kidney stone on right side, CT scan with urology is pending. Has some nausea, but denies vomiting. Denies fever, recent trauma, and any recent travel. Discomfort is rated 8/10 presently.
[2022-07-28 00:32] LABS: Appearance Urine Clear; Color Urine Dark Yellow; Glucose Urine UA Negative (Negative); Leukocyte Esterase Urine Trace (Negative); Nitrite Urine Positive (Negative); PH 5.5 (5.0-9.0); Specific Gravity - Urine 1.025 (1.005-1.025); UMIC TRIGGER UACC YES; Urine Blood Large (3+) (Negative); Urine Ketones Trace mg/dL (Negative); Urine Protein 30 (1+) mg/dL (Neg-Trace)
[2022-07-28 00:45] LABS: Bacteria Urine None Seen (None Seen); Hyaline Casts Urine 0-2 /LPF (0-2); UACC Culture Trigger YES; WBC Urine 0-5 /HPF (0-5)
[2022-07-28 01:27] VITALS: BP 113/76; PULSE 63
[2022-07-28 01:28] VITALS: BP 112/78; BP 115/80; PULSE 72; PULSE 80
[2022-07-28] MEDS: traMADoL HCL 50 MG TABLET PO (03:38)
[2022-07-28] MEDS: diphenhydrAMINE HCL 25 MG CAPSULE 50 MG PO (03:38)
== END 2022-07-28 03:56 | disposition home or self-care (01) ==
PROVIDERS: Physician Assistant Medical; Emergency Provider Internal Medicine; PCP Internal Medicine
DX: N39.0 Urinary tract infection, site not specified (principal); R10.30 Lower abdominal pain, unspecified; R55 Syncope and collapse; J32.9 Chronic sinusitis, unspecified; N20.0 Calculus of kidney; B18.2 Chronic viral hepatitis C; F17.210 Nicotine dependence, cigarettes, uncomplicated; F11.20 Opioid dependence, uncomplicated; Z20.822 Contact with and (suspected) exposure to COVID-19
CPT/HCPCS: 36415; 71046; 74176; 80053; 81001; 83735; 84702; 85025; 87086; 87635; 93005; 99284; 99285

== ENCOUNTER 2022-11-08 10:01 | Outpatient (AMB) | payer OTHER, SELFPAY ==
--- NOTE | 2022-11-08 10:04 | MHC.OFFVIS ---
Intake Vital Signs 11/08/22 10:05 Height 5 ft 7 in Weight 170 lb BMI 26.6 BP 104/66 Blood Pressure Location Lt brachial Position Sitting Respiration 16 Pulse 51 Pulse Source Pulse Oximeter Temp 98.3 F Temp Source Skin Pulse Oximetry (%) 99 Oxygen Delivery Method Room Air Intake Visit Reasons: arthralgia Allergies almond Allergy (Verified 07/27/22 18:53) Itching cruz [cherries] Allergy (Verified 07/27/22 18:53) Itching peach Allergy (Verified 07/27/22 18:53) Itching amoxicillin Adverse Reaction (Mild, Verified 11/08/22 10:10) Confusion Medication List - Last Reconciled 11/08/22 by Ugo Funes MD baclofen 10 - 20 mg PO TID cetirizine 10 mg PO DAILY cholecalciferol (vitamin D3) 50 mcg PO DAILY clonidine HCl 0.1 mg PO TID PRN fluticasone propionate 50 mcg/actuation (Flonase Allergy Relief) 2 sprays intranasal DAILY gabapentin mg PO levothyroxine 25 mcg PO DAILY lidocaine 5% (Lidoderm) 1 patch topical DAILY PRN MDD remove after 12 hours meloxicam 15 mg PO DAILY oxybutynin chloride ER 10 mg PO DAILY trazodone 25 mg PO BEDTIME PRN HPI HPI Comments History of Present Illness Details The patient is seen today for evaluation of positive CHRISTINE, positive rheumatoid factor and right wrist pain. She has a history of widespread pains for a number of years. This includes the neck, upper back, lower back, shoulders, hands, wrists, knees, and feet. She had seen Dr. Tapia, a webbing weaver, back in 2011. There was wrist pain at that time but no swelling was seen. He felt she had fibromyalgia. Those pains have continued. She also gets intermittent hand numbness. The right wrist pain has been accompanied by some nocturnal sensation of swelling when she awakens in the morning. Every night she gets hand paresthesias right greater than left. There is also occasional paresthesias in the hands during the day. She was taking some naproxen and meloxicam was added to that about 2 weeks ago. There has been no improvement so far. She also apparently had some physical therapy, acupuncture and chiropractic treatment in the past. She has known about having a hepatitis C infection for about 15 years. This was acquired through IV drug abuse. She had a relapse and was on methadone after that and has not received any treatment for the hep C. There is a GI visit her or ID visit planned in the future to look into that. Her her feet are also painful across the 1st MTP joints. They also seem to have intermittent paresthesias. She has notices few dark in spots in the left foot region. [facility] Medical History Arthralgia of multiple joints Asthma Chronic hepatitis C without mention of hepatic coma Fibromyalgia Pain and swelling of right wrist Tobacco use Surgical History (Updated 07/04/22 @ 11:01 by SNEHA Plummer) History of liver biopsy Hx of section Family History (Updated 07/04/22 @ 11:02 by SNEHA Plummer) Mother Ovarian cancer, Onset Age: 54 Sister Endometriosis Social History (Updated 07/04/22 @ 11:03 by SNEHA Plummer) Alcohol intake: current Alcohol intake frequency: holidays/special occasions only Patient Tobacco Use Status: Current everyday Tobacco user Tobacco use type: Cigarette Cigarette Packs Per Day: 0.50 e-Cigarette/Vaping Use: Currently Using Review of Systems Const Details: Some fluctuation in weight in the last year or 2. Negative for appetite change, fever, chills, malaise and fatigue Eyes Details: Some fluctuation in vision last year; she says she has floaters. Occasional headaches. Negative for dry eyes and dizziness ENT Details: Occasional mouth sores. Negative for hearing change, tinnitus, nose bleeds and oral dryness. Card Details: Occasional palpitations. Negative chest pain, edema and syncope Resp Details: Occasional wheezing from asthma. Currently negative for SOB, cough and wheezing GI Details: Occasional heartburn. Negative nausea, abdominal pain, bowel changes, diarrhea, constipation and bloody stool. Details: Some irritable bladder symptoms helped with oxybutynin. Negative for dysuria, hematuria, nocturia, decreased force/flow and genital discharge Skin/Breast Details: Two pigmented skin lesions in the left foot. These are not tender or palpable. Negative for itching, hives, Raynaud's symptoms, sun sensitivity, and skin cancer Neuro Details: Treatment hand paresthesias and occasional paresthesias. Negative for epilepsy, palsy, stroke, changes in speech and weakness Psych Details: Frequent problems with anxiety. Currently helped with the clonidine and trazodone at night. Tapered off the methadone a few months ago. Negative for depression and stress Endo Details: Negative for polyuria and polydypsia Jeffrey/Lymph Details: Negative for excessive bruising or bleeding. Physical Exam Vital Signs: Last Vital Signs Temp 98.3 F 11/08/22 10:05 Pulse 51 11/08/22 10:05 Resp 16 11/08/22 10:05 BP 104/66 11/08/22 10:05 Pulse Ox 99 11/08/22 10:05 Oxygen Delivery Method Room Air 11/08/22 10:05 BMI result Body Mass Index 26.6 APPEARANCE: Patient in no acute distress EYES no redness, pupils equal and reactive to light, eyelids normal EARS: External ear normal, canal clear and tympanic membrane normal. NOSE/SINUS: Airflow through both nares, no nasal discharge, no bleeding THROAT: Oral mucosa moist, no ulcerations NECK: No thyromegaly or masses, no adenopathy, trachea midline. HEART: Regulrar rhythm, S1-S2 heard, no murmurs, rubs or gallops. LUNG: Clear to percussion and auscultation ABD: Normal bowel sounds, no organomegaly, masses or tenderness. EXTREMITIES: No edema, no calf tenderness, normal peripheral pulses. NEURO: Oriented and alert x3. No focal weakness. Reflexes symmetric. Gait normal. SKIN: She has 2 hyperpigmented flat lesions on the left foot, 1 on the dorsum in 1 on the sole. These are not tender. There is no surrounding redness or warmth or induration. Elsewhere she has no inflammatory or neoplastic lesions. JOINT EXAM:.?? Cervical Spine:.? Full range of motion without pain; no tenderness. Thoracic Spine:.? No scoliosis.? No tenderness on palpation. Lumbar Spine:.? Alignment normal.? Full range of motion without pain, no tenderness. Chest Wall:.? No tenderness, swelling, increased warmth or erythema. Hands:.? Normal pain-free range of motion with slight tenderness along the flexor tendons without swelling or triggering in those tendons. Other joints have no tenderness, swelling, increased warmth or erythema. There is no sensory exam with thenar atrophy. Wrists:.? Right: Slight discomfort with extremes of flexion or extension. Mostly this is felt on the volar and ulnar side of the wrist. That area has some mild tenderness with questionable thickening but no redness or warmth. There is no dorsal tenderness in the wrist. Positive Phalen's test. Left: Normal pain-free range of motion without tenderness, swelling, increased warmth or erythema. Positive Phalen's test. Elbows:. Right: Slight discomfort at full extension with some mild lateral epicondylar tenderness. No tenderness or swelling over the joint space. Left: Normal pain-free range of motion without tenderness, swelling, increased warmth or erythema. Shoulders:.?? Full range of motion without pain. No tenderness, weakness, swelling, increased warmth or erythema. Hips:.? Full range of motion without pain. Hip bursa:.? No tenderness. Knees:.?? Normal pain-free range of motion without tenderness, swelling, increased warmth or erythema.? There is no effusion or crepitation Ankles: Right: normal pain-free range of motion with slight medial tenderness but no swelling. No redness or warmth. Left:? Normal pain-free range of motion without tenderness, swelling, increased warmth or erythema. Feet:.? Normal pain-free range of motion with mild 1st MTP bony enlargement. Those joints are slightly tender but the other MTPs are not swollen or tender. Three no sensory loss appreciated. Tender points:.? Mild tenderness to digital palpation at the, trapezius, second rib, lateral epicondyle, knees, greater trochanter area bilaterally. ? Results Reviewed Results Reviewed: Laboratory Tests 07/27/22 07/27/22 19:28 19:28 WBC 11.2 H Hgb 13.0 Plt Count 319 Creatinine 1.17 AST 23 ALT 18 Albumin 4.6 Lab work from [place]: March 2022: White count 7.9, hemoglobin 12.5, platelet count [id number], ESR 36. CCP antibody negative, CHRISTINE positive at a titer of greater than 2560 with a speckled pattern, rheumatoid factor 33, CRP less than 0.11 October 2022: Hepatitis C viral load quantitative 230,650 Right wrist films read as normal in 2011 and again in 2021 Assessment & Plan Assessment & Plan (1) Chronic hepatitis C without mention of hepatic coma: Code(s): B18.2 - Chronic viral hepatitis C (2) Fibromyalgia: Code(s): M79.7 - Fibromyalgia (3) CHRISTINE positive: Code(s): R76.8 - Other specified abnormal immunological findings in serum (4) Rheumatoid factor positive: Code(s): R76.8 - Other specified abnormal immunological findings in serum (5) Numbness of right hand: Code(s): R20.0 - Anesthesia of skin Plan Patient has had rather longstanding, intermittent and widespread pains in muscles, bones and joints. That had the picture and still does of fibromyalgia. The right wrist has been more symptomatic before, now she complains of occasional swelling. There is also bilateral hand numbness and a positive Phalen's test suggesting carpal tunnel syndrome. She has positive CHRISTINE and rheumatoid factor. The CHRISTINE has been positive for at least 12 years. Overall I doubt that she has an inflammatory arthritis. She could have some inflammatory arthropathy related to the untreated hepatitis C. Hepatitis C infection could also give her the positive rheumatoid factor and CHRISTINE. The pigmented skin lesions may be purpuric but are not palpable so I do not think they are vasculitic. With the hand paresthesias now regularly occurring at night I think more likely the right wrist pain is from the carpal tunnel syndrome. She should stop the naproxen and not take 2 NSAIDs at the same time. I issued her a prescription for right wrist splint. I told her to wear it nightly. A trial of using the splint nightly for 6 weeks or so may help her. If not helpful we would do nerve conduction studies and consider treatment with surgery and/or corticosteroid injection. I will check for some more specific serologies for lupus. She should follow-up as planned with providers who could treat her hepatitis C. Orders: Orders Erythrocyte Sedimentation Rate Today R76.8 - Other specified abnormal immunological findings in serum Anti DNA DS Antibody Today R76.8 - Other specified abnormal immunological findings in serum Anti Extractable Nuclear Ag Today R76.8 - Other specified abnormal immunological findings in serum Complement C3 Today R76.8 - Other specified abnormal immunological findings in serum Complement C4 Today R76.8 - Other specified abnormal immunological findings in serum Complete Blood Count Auto Diff Today R76.8 - Other specified abnormal immunological findings in serum C Reactive Protein Today R76.8 - Other specified abnormal immunological findings in serum Protein Creatinine Ratio, Ur Today R76.8 - Other specified abnormal immunological findings in serum Sjogren's Antibodies Today R76.8 - Other specified abnormal immunological findings in serum Medications: New arm brace (Wrist Brace) As directed 1 ea 0RF R20.0 - Anesthesia of skin Coding Level of Care Code New Pt Level 4 (37111) Diagnoses Chronic hepatitis C without mention of hepatic coma B18.2 Fibromyalgia M79.7 CHRISTINE positive R76.8 Rheumatoid factor positive R76.8 Numbness of right hand R20.0
[2022-11-08 10:05] VITALS: BP 104/66; PULSE 51; RESP 16; TEMP 36.8; O2SAT 99; BMI 26.6
== END 2022-11-08 11:03 | disposition home or self-care (01) ==
PROVIDERS: PCP Internal Medicine; Visit Provider Internal Medicine Rheumatology
DX: B18.2 Chronic viral hepatitis C (principal); M79.7 Fibromyalgia; R76.8 Other specified abnormal immunological findings in serum; R20.0 Anesthesia of skin
CPT/HCPCS: 99204

== ENCOUNTER → 2022-11-08 10:01 | Outpatient (BNVA) | payer OTHER, SELFPAY | PROVIDERS: PCP Internal Medicine; Visit Provider Internal Medicine Rheumatology | DX: M79.7 Fibromyalgia (principal); R76.8 Other specified abnormal immunological findings in serum; R20.0 Anesthesia of skin; B18.2 Chronic viral hepatitis C | CPT/HCPCS: 99202 ==

== ENCOUNTER 2022-11-12 12:42 | Outpatient (REF) | payer OTHER, SELFPAY ==
[2022-11-12 14:10] LABS: Basophils Absolute Auto 0.1 X10*3/uL (0.0-0.2); Basophils Percent Auto 0.9 % (0-2); Eosinophils Absolute Auto 0.1 X10*3/uL (0.0-0.4); Eosinophils Percent Auto 1.3 % (0-4); Hematocrit 34.4 % (37.0-47.0); Hemoglobin 11.6 g/dl (12.0-16.0); Imm Gran Abs Auto 0.01 X10*3/uL (0.00-0.03); Imm Gran Pct Auto 0.1 % (0.0-0.4); Lymphocytes Absolute Auto 1.9 X10*3/uL (1.2-4.9); Lymphocytes Percent Auto 28.1 % (20-40); MANUAL DIFF FLAG NO; Mean Corpuscular HGB Conc 33.7 g/dl (31.0-35.0); Mean Corpuscular Hemoglobin 30.4 pg (27.0-33.0); Mean Corpuscular Volume 90.3 fL (80.0-98.0); Mean Platelet Volume 10.8 fL (9.4-12.3); Monocytes Absolute Auto 0.4 X10*3/uL (0.1-1.2); Monocytes Percent Auto 5.6 % (2-11); Neutrophils Absolute Auto 4.3 x10*3/uL (2.0-8.3); Platelet Count 251 X10*3/uL (160-400); Red Blood Count 3.81 X10*6/uL (4.20-5.50); Red Cell Distribution Width 12.8 % (11.0-16.0); White Blood Count 6.8 X10*3/uL (4.8-10.8)
[2022-11-12 14:40] LABS: Erythrocyte Sedimentation Rate 13 MM/HR (0-20)
[2022-11-12 16:49] LABS: Creatinine Urine 224.88 mg/dL; Protein/Creatinine Ratio, Ur 0.06 (<0.2); Total Protein Urine Random 13 mg/dL (<12)
[2022-11-12 19:14] LABS: C Reactive Protein < 0.10 mg/dL (< or = 0.50)
[2022-11-13 22:49] LABS: Anti DNA DS Antibody <1 IU/mL; Antibody to SS-A Antigen <1.0 NEG AI (<1.0 NEG); Antibody to SS-B Antigen <1.0 NEG AI (<1.0 NEG); SM/Ribonucleoprotein Ab <1.0 NEG AI (<1.0 NEG); Smith Protein <1.0 NEG AI (<1.0 NEG)
[2022-11-15 04:18] LABS: Complement C3 135 mg/dL (83-193)
== END 2022-11-12 12:43 | disposition home or self-care (01) ==
LOC: HO.LAB 12:42
PROVIDERS: PCP Internal Medicine; Visit Provider Internal Medicine Rheumatology
DX: R76.8 Other specified abnormal immunological findings in serum (principal)
CPT/HCPCS: 36415; 84156; 85025; 85652; 86140; 86160; 86225; 86235

== ENCOUNTER 2022-12-20 15:43 | Outpatient (AMB) | payer OTHER, SELFPAY ==
[2022-12-20 15:51] VITALS: BP 106/60; PULSE 73; TEMP 36.3; O2SAT 98; BMI 25.4
--- NOTE | 2022-12-20 15:51 | MHC.OFFVIS ---
Intake Vital Signs 12/20/22 15:51 Height 5 ft 7 in Weight 162 lb 4.163 oz BMI 25.4 BP 106/60 Blood Pressure Location Rt brachial Position Sitting Pulse 73 Pulse Source Pulse Oximeter Temp 97.3 F Temp Source Skin Pulse Oximetry (%) 98 Intake Visit Reasons: cts/hallie Intake Note: Pt seen today for follow up. Reports she was taking tylenol 650mg for some time but no longer taking. Retail Client Manager Required: No Accompanied by: Self / Same As Patient Allergies almond Allergy (Verified 12/20/22 15:54) Itching cruz [cherries] Allergy (Verified 12/20/22 15:54) Itching peach Allergy (Verified 12/20/22 15:54) Itching amoxicillin Adverse Reaction (Mild, Verified 12/20/22 15:54) Confusion Medication List - Last Reconciled 12/20/22 by Chema Avelar MD arm brace (Wrist Brace) wear at night on right wrist baclofen 10 - 20 mg PO TID cetirizine 10 mg PO DAILY cholecalciferol (vitamin D3) 50 mcg PO DAILY clonidine HCl 0.1 mg PO TID PRN fluticasone propionate 50 mcg/actuation (Flonase Allergy Relief) 2 sprays intranasal DAILY gabapentin mg PO hydroxyzine HCl 25 mg PO BID PRN levothyroxine 50 mcg PO DAILY lidocaine 5% (Lidoderm) 1 patch topical DAILY PRN MDD remove after 12 hours oxybutynin chloride ER 10 mg PO DAILY trazodone 25 mg PO BEDTIME PRN HPI HPI Comments History of Present Illness Details Patient returns for follow-up. She has been using the wrist brace for both hands prescribed by Dr. Funes 6 weeks ago. She states that it does help. The right hand is worse. She wears the right hand splint almost all day, she wears the left wrist splint at night only. when she takes enough she gets tingling and numbness. The splints are helping. She continues to have swelling of her right wrist. This has been ongoing for the last year. She takes naproxen 500 mg daily with little relief, meloxicam 15 mg daily was tried and it was not helpful. She also gets some pain in her right elbow. Initial history by Dr. Funes: The patient is seen today for evaluation of positive HALLIE, positive rheumatoid factor and right wrist pain. She has a history of widespread pains for a number of years. This includes the neck, upper back, lower back, shoulders, hands, wrists, knees, and feet. 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 There was wrist pain at that time but no swelling was seen. He felt she had fibromyalgia. Those pains have continued. She also gets intermittent hand numbness. The right wrist pain has been accompanied by some nocturnal sensation of swelling when she awakens in the morning. Every night she gets hand paresthesias right greater than left. There is also occasional paresthesias in the hands during the day. She was taking some naproxen and meloxicam was added to that about 2 weeks ago. There has been no improvement so far. She also apparently had some physical therapy, acupuncture and chiropractic treatment in the past. She has known about having a hepatitis C infection for about 15 years. This was acquired through IV drug abuse. She had a relapse and was on methadone after that and has not received any treatment for the hep C. There is a GI visit her or ID visit planned in the future to look into that. Her her feet are also painful across the 1st MTP joints. They also seem to have intermittent paresthesias. She has notices few dark in spots in the left foot region. [facility], [facility] Medical History Pain and swelling of right wrist Arthralgia of multiple joints Tobacco use Chronic hepatitis C without mention of hepatic coma Fibromyalgia Asthma Surgical History History of liver biopsy Hx of section Family History Mother Ovarian cancer, Onset Age: 54 Sister Endometriosis Social History Alcohol intake: current Alcohol intake frequency: holidays/special occasions only Patient Tobacco Use Status: Current everyday Tobacco user e-Cigarette/Vaping Use: Currently Using Review of Systems Musc Reports arthralgias, Reports joint swelling, Reports numbness, Reports radiating pain into limb and Reports tingling Neuro Reports numbness and Reports tingling Physical Exam Vital Signs: Last Vital Signs Temp 97.3 F 12/20/22 15:51 Pulse 73 12/20/22 15:51 BP 106/60 12/20/22 15:51 Pulse Ox 98 12/20/22 15:51 BMI result Body Mass Index 25.4 Const General: cooperative, healthy appearing and comfortable Nutritional Appearance: average body habitus Orientation/consciousness: patient oriented x3 Limitations: no limitations HEENT Head: Yes normocephalic and Yes atraumatic Mouth: moist mucous membranes Resp Effort & Inspection: normal respiratory effort and able to speak in complete sentences Auscultation: clear to auscultation bilaterally Cardio Rate: regular rate Rhythm: regular rhythm Skin General skin exam: no rashes or lesions noted Neuro General: patient oriented x3 Extrem Other: Swelling at the right ulnar styloid with some tenderness Right wrist tenderness and pain with flexion and extension Right hand diffuse MCP tenderness without swelling Few tender PIP is in the DIPs on the right hand Positive Tinel sign right hand Right elbow tenderness to palpation and pain with full flexion and extension No left wrist swelling, tenderness or pain with flexion or extension. Negative MCP squeeze test left hand. No PIP or DIP tenderness Tingling and numbness is along the ulnar aspect and going into the 4th and 5th fingers Normal range of motion of both shoulders No knee pain with full flexion and extension Normal nailfold capillaroscopy Results Reviewed Results Reviewed: Laboratory Tests 07/27/22 07/27/22 19:28 19:28 WBC 11.2 H Hgb 13.0 Plt Count 319 Creatinine 1.17 AST 23 ALT 18 Albumin 4.6 Lab work from [place]: March 2022: White count 7.9, hemoglobin 12.5, platelet count [id number], ESR 36. CCP antibody negative, HALLIE positive at a titer of greater than 2560 with atypical speckled pattern, rheumatoid factor 33, CRP less than 0.11 October 2022: Hepatitis C viral load quantitative 230,650 Right wrist films read as normal in 2011 and again in 2021 Assessment & Plan Assessment & Plan (1) Rheumatoid factor positive: Code(s): R76.8 - Other specified abnormal immunological findings in serum Plan: 42-year-old female with positive HALLIE and positive rheumatoid factor presents for evaluation of right wrist pain. I do not see any signs suggestive of an autoimmune rheumatic disease upon my evaluation. Likely this is due to underlying chronic hepatitis C. Patient states that she has known untreated hepatitis C for the last 15 years. (2) HALLIE positive: Code(s): R76.8 - Other specified abnormal immunological findings in serum (3) Pain and swelling of right wrist: Code(s): M25.531 - Pain in right wrist; M25.431 - Effusion, right wrist Plan: Right ulnar styloid swelling on exam as well as some tenderness to palpation of right elbow and pain with flexion and extension. Will prescribe a Medrol Dosepak. Cannot give high doses of prednisone for long time due to active hepatitis C. Advised patient to call the clinic in 3-4 weeks, if no improvement will consider referring patient to Hand surgery to consider injection for ECU tenosynovitis (4) Carpal tunnel syndrome: Code(s): G56.00 - Carpal tunnel syndrome, unspecified upper limb Qualifiers: Laterality: bilateral Qualified Code(s): G56.03 - Carpal tunnel syndrome, bilateral upper limbs Plan: Bilateral carpal tunnel syndrome possible cubital tunnel syndrome on the left. Patient scheduled for an EMG next month. Ordered by an outside Orthopedics specialist. Advised patient to send me the report. Continue to wear wrist splints. (5) Chronic hepatitis C without mention of hepatic coma: Code(s): B18.2 - Chronic viral hepatitis C Qualifiers: Hepatic coma status: without hepatic coma Qualified Code(s): B18.2 - Chronic viral hepatitis C Plan: Patient has not started therapy yet, she has an appointment with an infectious disease specialist, Dr. Hare next month Plan I spent 27 minutes reviewing patient's chart, evaluating patient, placing orders, counseling patient and documenting in the chart Medications: New methylprednisolone (Medrol (Jovanny)) PO PER PKG DIR 21 ea 0RF Coding Level of Care Code Est Pt Level 4 (15077) Diagnoses Rheumatoid factor positive R76.8 HALLIE positive R76.8 Pain and swelling of right wrist M25.531; M25.431 Bilateral carpal tunnel syndrome G56.03 Laterality: bilateral Chronic hepatitis C without hepatic coma B18.2 Hepatic coma status: without hepatic coma
== END 2022-12-20 16:40 | disposition home or self-care (01) ==
PROVIDERS: PCP Internal Medicine; Visit Provider Student in an Organized Health Care Education/Training Program
DX: R76.8 Other specified abnormal immunological findings in serum (principal); M25.531 Pain in right wrist; M25.431 Effusion, right wrist; G56.03 Carpal tunnel syndrome, bilateral upper limbs; B18.2 Chronic viral hepatitis C
CPT/HCPCS: 99214

== ENCOUNTER → 2022-12-20 15:43 | Outpatient (BNVA) | payer OTHER, SELFPAY | PROVIDERS: PCP Internal Medicine; Visit Provider Student in an Organized Health Care Education/Training Program | DX: R76.8 Other specified abnormal immunological findings in serum (principal); B18.2 Chronic viral hepatitis C; G56.03 Carpal tunnel syndrome, bilateral upper limbs; M25.531 Pain in right wrist; M25.431 Effusion, right wrist | CPT/HCPCS: 99212 ==

== ENCOUNTER 2023-03-21 07:35 | Outpatient (AMB) | payer OTHER, SELFPAY ==
--- NOTE | 2023-03-21 07:37 | MHC.OFFVIS ---
Intake Vital Signs 03/21/23 07:46 Height 5 ft 7 in Weight 171 lb 11.841 oz BMI 26.9 BP 126/80 Blood Pressure Location Lt brachial Position Sitting Pulse 92 Pulse Source Pulse Oximeter Temp 97.5 F Temp Source Skin Pulse Oximetry (%) 98 Oxygen Delivery Method Room Air Intake Visit Reasons: CTS Intake Note: Pt last seen 12/20/22, presents today for follow up. Emg done through [employer]. Reports worsening lgt elbow pain. c/o right ring and pinky finger pain x 1 mo. Cheese Packer Required: No Accompanied by: Self / Same As Patient Allergies almond Allergy (Verified 03/21/23 07:38) Itching cruz [cherries] Allergy (Verified 03/21/23 07:38) Itching peach Allergy (Verified 03/21/23 07:38) Itching amoxicillin Adverse Reaction (Mild, Verified 03/21/23 07:38) Confusion Medication List - Last Reconciled 03/21/23 by Chema Avelar MD arm brace (Wrist Brace) wear at night on right wrist baclofen 10 - 20 mg PO TID cetirizine 10 mg PO DAILY cholecalciferol (vitamin D3) 50 mcg PO DAILY clonidine HCl 0.1 mg PO TID PRN fluticasone propionate 50 mcg/actuation (Flonase Allergy Relief) 2 sprays intranasal DAILY gabapentin mg PO hydroxyzine HCl 25 mg PO BID PRN levothyroxine 50 mcg PO DAILY lidocaine 5% (Lidoderm) 1 patch topical DAILY PRN MDD remove after 12 hours naproxen 500 mg PO BID oxybutynin chloride ER 10 mg PO DAILY sofosbuvir-velpatasvir 400-100 mg 1 tab PO DAILY trazodone mg PO HPI HPI Comments History of Present Illness Details For 42-year-old female with hepatitis C, positive RF and positive CHRISTINE returns for evaluation of joint pain and swelling. Patient was started on hepatitis C antiviral treatment a few weeks ago. She states that her joint pain and swelling are worse. Her rise wrist pain is persistent. She also has pain and swelling of her right 4th and 5th PIP is. She is also complaining of right elbow pain. She now also has developed right wrist swelling as well as pain in her knuckles and fingers. She has pain in the right ankle and right foot toes. She is now wearing the wrist splints consistently nightly. Initial history by Dr. Funes: The patient is seen today for evaluation of positive CHRISTINE, positive rheumatoid factor and right wrist pain. She has a history of widespread pains for a number of years. This includes the neck, upper back, lower back, shoulders, hands, wrists, knees, and feet. She had seen Dr. Tapia, a living skills advisor, back in 2011. There was wrist pain at that time but no swelling was seen. He felt she had fibromyalgia. Those pains have continued. She also gets intermittent hand numbness. The right wrist pain has been accompanied by some nocturnal sensation of swelling when she awakens in the morning. Every night she gets hand paresthesias right greater than left. There is also occasional paresthesias in the hands during the day. She was taking some naproxen and meloxicam was added to that about 2 weeks ago. There has been no improvement so far. She also apparently had some physical therapy, acupuncture and chiropractic treatment in the past. She has known about having a hepatitis C infection for about 15 years. This was acquired through IV drug abuse. She had a relapse and was on methadone after that and has not received any treatment for the hep C. There is a GI visit her or ID visit planned in the future to look into that. Her her feet are also painful across the 1st MTP joints. They also seem to have intermittent paresthesias. She has notices few dark in spots in the left foot region. [facility] Medical History Pain and swelling of right wrist Arthralgia of multiple joints Tobacco use Chronic hepatitis C without mention of hepatic coma Fibromyalgia Asthma Surgical History History of liver biopsy Hx of section Family History Mother Ovarian cancer, Onset Age: 54 Sister Endometriosis Social History Alcohol intake: current Alcohol intake frequency: holidays/special occasions only Patient Tobacco Use Status: Current everyday Tobacco user e-Cigarette/Vaping Use: Currently Using [place] [facility] [place]ralgias and Reports joint swelling Physical Exam Vital Signs: Last Vital Signs Temp 97.5 F 03/21/23 07:46 Pulse 92 03/21/23 07:46 BP 126/80 03/21/23 07:46 Pulse Ox 98 03/21/23 07:46 Oxygen Delivery Method Room Air 03/21/23 07:46 BMI result Body Mass Index 26.9 Const General: cooperative, healthy appearing and comfortable Nutritional Appearance: average body habitus Orientation/consciousness: patient oriented x3 Limitations: no limitations HEENT Head: Yes normocephalic and Yes atraumatic Resp Effort & Inspection: normal respiratory effort and able to speak in complete sentences Cardio Rate: regular rate Rhythm: regular rhythm Skin General skin exam: no rashes or lesions noted Neuro General: patient oriented x3 Extrem Other: Swelling at the right ulnar styloid with some tenderness Right wrist tenderness and pain with flexion and extension Right hand 2nd through 5th PIP tenderness, minimal swelling of 4th and 5th PIPs Right elbow pain with flexion and extension Tenderness at the right common extensor origin at the lateral epicondyle with positive resisted wrist extension test Left wrist tenderness to palpation and pain with flexion and extension Left 4th and 5th MCP and 4th and 5th PIP tenderness Normal range of motion of both shoulders No knee pain with full flexion and extension Right ankle tenderness Right 1st, and 3rd through 5th MTP tenderness Normal nailfold capillaroscopy Results Reviewed Results Reviewed: Laboratory Tests 07/27/22 07/27/22 19:28 19:28 WBC 11.2 H Hgb 13.0 Plt Count 319 Creatinine 1.17 AST 23 ALT 18 Albumin 4.6 Lab work from [place]: March 2022: White count 7.9, hemoglobin 12.5, platelet count [id number], ESR 36. CCP antibody negative, CHRISTINE positive at a titer of greater than 2560 with atypical speckled pattern, rheumatoid factor 33, CRP less than 0.11 October 2022: Hepatitis C viral load quantitative 230,650 Right wrist films read as normal in 2011 and again in 2021 Assessment & Plan Assessment & Plan (1) Rheumatoid factor positive: Code(s): R76.8 - Other specified abnormal immunological findings in serum Plan: 42-year-old female with positive CHRISTINE and positive rheumatoid factor presents for evaluation of right wrist pain. This is in the setting of hepatitis-C infection. Patient started hepatitis C treatment a few weeks ago and, hep C viral load 2 weeks ago was undetectable. Since last visit patient has been having worsening joint pain and swelling. There are multiple swollen and tender joints on exam today. Will check an anti CCP antibody. Check inflammatory markers. Check x-rays for evaluation of erosive disease. Start prednisone therapeutic trial for 6 weeks. If there is no improvement, will consider hydroxychloroquine. (2) CHRISTINE positive: Code(s): R76.8 - Other specified abnormal immunological findings in serum Plan: Check sub serologies (3) Pain and swelling of right wrist: Code(s): M25.531 - Pain in right wrist; M25.431 - Effusion, right wrist Plan: Likely right ECU tenosynovitis. This has been persistent. Will refer to Hand surgery to consider an injection (4) Chronic hepatitis C without mention of hepatic coma: Code(s): B18.2 - Chronic viral hepatitis C Qualifiers: Hepatic coma status: without hepatic coma Qualified Code(s): B18.2 - Chronic viral hepatitis C Plan: Recently started on hepatitis C antiviral treatment a few weeks ago. Most recent viral load undetectable 2 weeks ago. Plan I spent 27 minutes reviewing patient's chart, evaluating patient, placing orders, counseling patient and documenting in the chart Orders: Orders XR hand wrist RT Today M25.50 - Pain in unspecified joint Complement C3 Today M32.9 - Systemic lupus erythematosus, unspecified Complement C4 Today M32.9 - Systemic lupus erythematosus, unspecified Sjogren's Antibodies Today M32.9 - Systemic lupus erythematosus, unspecified C Reactive Protein Today M32.9 - Systemic lupus erythematosus, unspecified XR hand wrist LT Today M25.50 - Pain in unspecified joint Anti Extractable Nuclear Ag Today M32.9 - Systemic lupus erythematosus, unspecified Anti DNA DS Antibody Today M32.9 - Systemic lupus erythematosus, unspecified Erythrocyte Sedimentation Rate Today M32.9 - Systemic lupus erythematosus, unspecified Protein Creatinine Ratio, Ur Today M32.9 - Systemic lupus erythematosus, unspecified UA w Microscopic Today M32.9 - Systemic lupus erythematosus, unspecified Cyclic Citrullinated Peptide Today M25.50 - Pain in unspecified joint Referrals Hand Surgery Referral M25.431 - Effusion, right wrist, M25.531 - Pain in right wrist Medications: New prednisone Take 4 tabs by mouth daily for 2 weeks then 3 tabs daily for 2 weeks then remain on 2 tabs daily 126 tabs 0RF Coding Level of Care Code Est Pt Level 4 (55807) Diagnoses Rheumatoid factor positive R76.8 CHRISTINE positive R76.8 Pain and swelling of right wrist M25.531; M25.431 Chronic hepatitis C without hepatic coma B18.2 Hepatic coma status: without hepatic coma
[2023-03-21 07:46] VITALS: BP 126/80; PULSE 92; TEMP 36.4; O2SAT 98; BMI 26.9
== END 2023-03-21 08:05 | disposition home or self-care (01) ==
PROVIDERS: PCP Internal Medicine; Visit Provider Student in an Organized Health Care Education/Training Program
DX: R76.8 Other specified abnormal immunological findings in serum (principal); M25.531 Pain in right wrist; M25.431 Effusion, right wrist; B18.2 Chronic viral hepatitis C
CPT/HCPCS: 99214

== ENCOUNTER → 2023-03-21 07:35 | Outpatient (BNVA) | payer OTHER, SELFPAY | PROVIDERS: PCP Internal Medicine; Visit Provider Student in an Organized Health Care Education/Training Program | DX: M25.531 Pain in right wrist (principal); M25.431 Effusion, right wrist; R76.8 Other specified abnormal immunological findings in serum; B18.2 Chronic viral hepatitis C | CPT/HCPCS: 99212 ==

== ENCOUNTER 2023-03-22 07:32 | Outpatient (REF) | payer OTHER, SELFPAY ==
[2023-03-22 10:45] LABS: Appearance Urine Clear; Color Urine Yellow; Glucose Urine UA Negative (Negative); Leukocyte Esterase Urine Negative (Negative); Nitrite Urine Negative (Negative); Specific Gravity - Urine 1.025 (1.005-1.025); UMIC TRIGGER UA YES; Urine Blood Trace (Negative); Urine Ketones Negative (Negative); Urine Protein Negative (Neg-Trace)
[2023-03-22 10:50] LABS: Bacteria Urine None Seen (None Seen); Hyaline Casts Urine 0-2 /LPF (0-2); WBC Urine 0-5 /HPF (0-5)
[2023-03-22 11:03] LABS: C Reactive Protein 0.15 mg/dL (< or = 0.50)
[2023-03-22 11:36] LABS: Erythrocyte Sedimentation Rate 19 MM/HR (0-20)
[2023-03-22 11:42] LABS: Creatinine Urine 231.65 mg/dL; Protein/Creatinine Ratio, Ur 0.06 (<0.2); Total Protein Urine Random 14 mg/dL (<12)
[2023-03-25 13:08] LABS: Cyclic Citrullinated Peptide <16 UNITS
[2023-03-26 18:35] LABS: Anti DNA DS Antibody <1 IU/mL; Antibody to SS-A Antigen <1.0 NEG AI (<1.0 NEG); Antibody to SS-B Antigen <1.0 NEG AI (<1.0 NEG); SM/Ribonucleoprotein Ab <1.0 NEG AI (<1.0 NEG); Smith Protein <1.0 NEG AI (<1.0 NEG)
[2023-03-26 19:24] LABS: Complement C3 146 mg/dL (83-193)
== END 2023-03-22 07:33 | disposition home or self-care (01) ==
LOC: HO.10HDL 07:32
PROVIDERS: Visit Provider Student in an Organized Health Care Education/Training Program
DX: M32.9 Systemic lupus erythematosus, unspecified (principal); M25.50 Pain in unspecified joint
CPT/HCPCS: 36415; 81001; 82570; 84156; 85652; 86140; 86160; 86200; 86225; 86235

== ENCOUNTER 2023-05-06 07:39 | Outpatient (AMB) | payer OTHER, SELFPAY ==
--- NOTE | 2023-05-06 07:44 | MHC.OFFVIS ---
Intake Vital Signs 05/06/23 07:46 Height 5 ft 7 in Weight 175 lb 7.807 oz BMI 27.5 BP 106/70 Blood Pressure Location Rt brachial Position Sitting Pulse 91 Pulse Source Pulse Oximeter Pulse Oximetry (%) 98 Oxygen Delivery Method Room Air Intake Visit Reasons: CTS Intake Note: Patient last seen 03/21/23 presents today for follow up and test results. Completed prednisone taper- she states it helped with the swelling, but still has pain. 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 Required: No Accompanied by: Self / Same As Patient Allergies almond Allergy (Verified 05/06/23 07:53) Itching cruz [cherries] Allergy (Verified 05/06/23 07:53) Itching peach Allergy (Verified 05/06/23 07:53) Itching amoxicillin Adverse Reaction (Mild, Verified 05/06/23 07:53) Confusion Medication List - Last Reconciled 05/06/23 by Chema Avelar MD arm brace (Wrist Brace) wear at night on right wrist baclofen 10 - 20 mg PO TID cetirizine 10 mg PO DAILY cholecalciferol (vitamin D3) 50 mcg PO DAILY clonidine HCl 0.1 mg PO TID PRN fluticasone propionate 50 mcg/actuation (Flonase Allergy Relief) 2 sprays intranasal DAILY gabapentin mg PO hydroxyzine HCl 25 mg PO BID PRN levothyroxine 50 mcg PO DAILY lidocaine 5% (Lidoderm) 1 patch topical DAILY PRN MDD remove after 12 hours naproxen 500 mg PO BID oxybutynin chloride ER 10 mg PO DAILY prednisone 10 mg (2 x 5 mg) PO DAILY HPI HPI Comments History of Present Illness Details 42-year-old female with inflammatory arthritis, hepatitis C (treated), positive RF and positive CHRISTINE returns for evaluation of inflammatory arthritis. Patient completed hepatitis C treatment and her most recent hepatitis-C viral load was undetectable. She has been taking prednisone as prescribed until she ran out 2 days ago. She states that the pain and swelling of her joints as improved but she continues to have pain in her wrists, fingers, ankles and toes. Continues to use compression gloves Initial history by Dr. Funes: The patient is seen today for evaluation of positive CHRISTINE, positive rheumatoid factor and right wrist pain. She has a history of widespread pains for a number of years. This includes the neck, upper back, lower back, shoulders, hands, wrists, knees, and feet. She had seen Dr. Tapia, a coil maker, back in 2011. There was wrist pain at that time but no swelling was seen. He felt she had fibromyalgia. Those pains have continued. She also gets intermittent hand numbness. The right wrist pain has been accompanied by some nocturnal sensation of swelling when she awakens in the morning. Every night she gets hand paresthesias right greater than left. There is also occasional paresthesias in the hands during the day. She was taking some naproxen and meloxicam was added to that about 2 weeks ago. There has been no improvement so far. She also apparently had some physical therapy, acupuncture and chiropractic treatment in the past. She has known about having a hepatitis C infection for about 15 years. This was acquired through IV drug abuse. She had a relapse and was on methadone after that and has not received any treatment for the hep C. There is a GI visit her or ID visit planned in the future to look into that. Her her feet are also painful across the 1st MTP joints. They also seem to have intermittent paresthesias. She has notices few dark in spots in the left foot region. [facility] Medical History Pain and swelling of right wrist Arthralgia of multiple joints Tobacco use Chronic hepatitis C without mention of hepatic coma Fibromyalgia Asthma Surgical History History of liver biopsy Hx of section Family History Mother Ovarian cancer, Onset Age: 54 Sister Endometriosis Social History Alcohol intake: current Alcohol intake frequency: holidays/special occasions only Patient Tobacco Use Status: Current everyday Tobacco user e-Cigarette/Vaping Use: Currently Using Review of Systems [facility] [place] Reports arthralgias and Reports joint swelling Physical Exam Vital Signs: Last Vital Signs Pulse 91 05/06/23 07:46 BP 106/70 05/06/23 07:46 Pulse Ox 98 05/06/23 07:46 Oxygen Delivery Method Room Air 01/22/24 07:46 BMI result Body Mass Index 27.5 Const General: cooperative, healthy appearing and comfortable Nutritional Appearance: average body habitus Orientation/consciousness: patient oriented x3 Limitations: no limitations HEENT Head: Yes normocephalic and Yes atraumatic Resp Effort & Inspection: normal respiratory effort and able to speak in complete sentences Cardio Rate: regular rate Rhythm: regular rhythm Skin General skin exam: no rashes or lesions noted Neuro General: patient oriented x3 Extrem Other: Patient wearing compression gloves both hands. Swelling at the right ulnar styloid with some tenderness (launch improved compared to last visit) Right wrist tenderness and pain with flexion and extension Right hand multiple MCP, PIP and DIP tenderness Right elbow pain with flexion and extension Tenderness at the right common extensor origin at the lateral epicondyle with positive resisted wrist extension test Tenderness at the left common extensor origin at the lateral epicondyle with positive resisted wrist extension 10 Left wrist tenderness to palpation and pain with flexion and extension Few MCP and PIP tenderness left hand Normal range of motion of both shoulders No knee pain with full flexion and extension Right ankle tenderness, swelling just inferior to the right lateral malleolus Bilateral diffuse MTP tenderness and positive MTP squeeze test Normal nailfold capillaroscopy Results Reviewed Results Reviewed: Laboratory Tests 07/27/22 07/27/22 19:28 19:28 WBC 11.2 H Hgb 13.0 Plt Count 319 Creatinine 1.17 AST 23 ALT 18 Albumin 4.6 Lab work from [place]: March 2022: White count 7.9, hemoglobin 12.5, platelet count [id number], ESR 36. CCP antibody negative, CHRISTINE positive at a titer of greater than 2560 with atypical speckled pattern, rheumatoid factor 33, CRP less than 0.11 October 2022: Hepatitis C viral load quantitative 230,650 Right wrist films read as normal in 2011 and again in 2021 Assessment & Plan Assessment & Plan (1) Rheumatoid factor positive: Code(s): R76.8 - Other specified abnormal immunological findings in serum Plan: 42-year-old female with positive CHRISTINE and positive rheumatoid factor presents for evaluation of right wrist pain. This is in the setting of hepatitis-C infection. Patient completed hepatitis C treatment and her most recent hepatitis-C viral load was undetectable She has developed inflammatory arthritis with multiple swollen and tender joints. Symptoms improved with prednisone taper. But symptoms have been persistent. Will need to start DMARDs. Discussed risks and benefits of methotrexate and hydroxychloroquine. For methotrexate. Patient stated that she drinks alcohol rarely, she uses Nexplanon for control. Not sexually active. If patient decides to go with hydroxychloroquine, since she takes hydroxyzine regularly, she will be need a baseline EKG to evaluate her QTC interval and another EKG 2 weeks after hydroxychloroquine started. Patient will think about it and let me know. For now restart prednisone at 10 mg daily. (2) CHRISTINE positive: Code(s): R76.8 - Other specified abnormal immunological findings in serum Plan: Sub serologies are negative, can be related to history of hepatitis-C (3) Pain and swelling of right wrist: Code(s): M25.531 - Pain in right wrist; M25.431 - Effusion, right wrist Plan: Likely right ECU tenosynovitis. This has been persistent. The swelling has significantly come down after prednisone was started. She has an appointment with physiatry soon (4) Chronic hepatitis C without mention of hepatic coma: Code(s): B18.2 - Chronic viral hepatitis C Qualifiers: Hepatic coma status: without hepatic coma Qualified Code(s): B18.2 - Chronic viral hepatitis C Plan: Completed hepatitis C treatment and viral load was undetected Plan I spent 27 minutes reviewing patient's chart, evaluating patient, placing orders, counseling patient and documenting in the chart Medications: Changed From prednisone Take 4 tabs by mouth daily for 2 weeks then 3 tabs daily for 2 weeks then remain on 2 tabs daily 126 tabs 0RF To prednisone 10 mg (2 x 5 mg) PO DAILY 60 tabs 1RF Coding Level of Care Code Est Pt Level 4 (12417) Diagnoses Rheumatoid factor positive R76.8 CHRISTINE positive R76.8 Pain and swelling of right wrist M25.531; M25.431 Chronic hepatitis C without hepatic coma B18.2 Hepatic coma status: without hepatic coma
[2023-05-06 07:46] VITALS: BP 106/70; PULSE 91; O2SAT 98; BMI 27.5
== END 2023-05-06 08:22 | disposition home or self-care (01) ==
PROVIDERS: PCP Internal Medicine; Visit Provider Student in an Organized Health Care Education/Training Program
DX: R76.8 Other specified abnormal immunological findings in serum (principal); M25.531 Pain in right wrist; M25.431 Effusion, right wrist; B18.2 Chronic viral hepatitis C
CPT/HCPCS: 99214

== ENCOUNTER → 2023-05-06 07:39 | Outpatient (BNVA) | payer OTHER, SELFPAY | PROVIDERS: PCP Internal Medicine; Visit Provider Student in an Organized Health Care Education/Training Program | DX: R76.8 Other specified abnormal immunological findings in serum (principal); M25.531 Pain in right wrist; M25.431 Effusion, right wrist; B18.2 Chronic viral hepatitis C | CPT/HCPCS: 99212 ==

== ENCOUNTER 2023-07-17 07:50 | Outpatient (AMB) | payer OTHER, SELFPAY ==
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
[2023-07-17 07:58] VITALS: BP 112/60; PULSE 108; O2SAT 99; BMI 31.0
== END 2023-07-17 08:10 | disposition home or self-care (01) ==
PROVIDERS: PCP Internal Medicine; Visit Provider Student in an Organized Health Care Education/Training Program
DX: M05.79 Rheumatoid arthritis with rheumatoid factor of multiple sites without organ or systems involvement (principal); Z79.631 Long term (current) use of antimetabolite agent; R76.8 Other specified abnormal immunological findings in serum; B18.2 Chronic viral hepatitis C
CPT/HCPCS: 99214

== ENCOUNTER → 2023-07-17 07:50 | Outpatient (BNVA) | payer OTHER, SELFPAY | PROVIDERS: PCP Internal Medicine; Visit Provider Student in an Organized Health Care Education/Training Program | DX: M05.9 Rheumatoid arthritis with rheumatoid factor, unspecified (principal); M79.7 Fibromyalgia; R76.8 Other specified abnormal immunological findings in serum; B18.2 Chronic viral hepatitis C; Z79.631 Long term (current) use of antimetabolite agent | CPT/HCPCS: 99212 ==

== ENCOUNTER 2023-07-18 16:16 | Outpatient (REF) | payer OTHER, SELFPAY ==
--- NOTE | ~2023-07-18 | XR_ITS ---
EXAMINATION: XR WRIST/HAND, RIGHT XR WRIST/HAND, LEFT CLINICAL INFORMATION: Rheumatoid arthritis. COMPARISON: None available. TECHNIQUE: PA, oblique, lateral, and scaphoid views of the right and left hand/wrist. FINDINGS: Right wrist: No fracture or dislocation. No joint space narrowing or marginal osteophytes. No osseous erosion. No abnormal soft tissue calcification. Left wrist: No fracture or dislocation. No joint space narrowing or marginal osteophytes. No osseous erosion. No abnormal soft tissue calcification. Right hand: No fracture or dislocation. Normal carpal alignment. No significant joint space narrowing or marginal osteophytes. No osseous erosion. No periarticular osteopenia. No abnormal soft tissue calcification. Left hand: No fracture or dislocation. Normal carpal alignment. No significant joint space narrowing or marginal osteophytes. No osseous erosion. No periarticular osteopenia. No abnormal soft tissue calcification. XR/XR hand wrist RT IMPRESSION: Unremarkable examination. No significant periarticular osseous erosion.
--- NOTE | ~2023-07-18 | XR_ITS ---
EXAMINATION: XR WRIST/HAND, RIGHT XR WRIST/HAND, LEFT CLINICAL INFORMATION: Rheumatoid arthritis. COMPARISON: None available. TECHNIQUE: PA, oblique, lateral, and scaphoid views of the right and left hand/wrist. FINDINGS: Right wrist: No fracture or dislocation. No joint space narrowing or marginal osteophytes. No osseous erosion. No abnormal soft tissue calcification. Left wrist: No fracture or dislocation. No joint space narrowing or marginal osteophytes. No osseous erosion. No abnormal soft tissue calcification. Right hand: No fracture or dislocation. Normal carpal alignment. No significant joint space narrowing or marginal osteophytes. No osseous erosion. No periarticular osteopenia. No abnormal soft tissue calcification. Left hand: No fracture or dislocation. Normal carpal alignment. No significant joint space narrowing or marginal osteophytes. No osseous erosion. No periarticular osteopenia. No abnormal soft tissue calcification. XR/XR hand wrist LT IMPRESSION: Unremarkable examination. No significant periarticular osseous erosion.
[2023-07-18 16:32] LABS: MANUAL DIFF FLAG NO
[2023-07-18 17:41] LABS: Basophils Absolute Auto 0.1 X10*3/uL (0.0-0.2); Basophils Percent Auto 0.8 % (0-2); Eosinophils Absolute Auto 0.2 X10*3/uL (0.0-0.4); Eosinophils Percent Auto 1.8 % (0-4); Hematocrit 36.7 % (37.0-47.0); Hemoglobin 11.9 g/dl (12.0-16.0); Imm Gran Abs Auto 0.04 X10*3/uL (0.00-0.03); Imm Gran Pct Auto 0.3 % (0.0-0.4); Lymphocytes Absolute Auto 3.5 X10*3/uL (1.2-4.9); Lymphocytes Percent Auto 27.2 % (20-40); Mean Corpuscular HGB Conc 32.4 g/dl (31.0-35.0); Mean Corpuscular Hemoglobin 29.4 pg (27.0-33.0); Mean Corpuscular Volume 90.6 fL (80.0-98.0); Mean Platelet Volume 9.4 fL (9.4-12.3); Monocytes Percent Auto 7.4 % (2-11); Neutrophils Percent Auto 62.5 % (45-73); Platelet Count 310 X10*3/uL (160-400); Red Blood Count 4.05 X10*6/uL (4.20-5.50); Red Cell Distribution Width 13.6 % (11.0-16.0); White Blood Count 12.8 X10*3/uL (4.8-10.8)
[2023-07-18 17:57] LABS: Alanine Aminotransferase 11 U/L (0-31); Albumin Level 3.8 g/dL (3.5-5.0); Alkaline Phosphatase 81 U/L (39-117); Anion Gap 10 (12-20); Aspartate Amino Transferase 16 U/L (5-31); Bilirubin Total 0.3 mg/dL (0.0-1.0); Blood Urea Nitrogen 13 mg/dL (9-16); C Reactive Protein 0.62 mg/dL (< or = 0.50); Calcium 9.3 mg/dL (8.4-10.2); Carbon Dioxide 28 mmol/L (22-29); Chloride 105 mmol/L (96-108); Estimated Glomerular Filt Rate > 60; Glucose Random 72 mg/dL (60-115); Potassium 3.8 mmol/L (3.3-5.1); Sodium 139 mmol/L (135-145); Total Protein 7.4 g/dL (6.5-8.0)
[2023-07-18 17:59] LABS: Rheumatoid Factor 16.8 IU/mL (<15.0)
[2023-07-18 18:16] LABS: Erythrocyte Sedimentation Rate 25 MM/HR (0-20)
== END 2023-07-18 16:17 | disposition home or self-care (01) ==
LOC: HO.LAB 16:16
PROVIDERS: PCP Internal Medicine; Visit Provider Student in an Organized Health Care Education/Training Program
DX: M05.9 Rheumatoid arthritis with rheumatoid factor, unspecified (principal); M25.50 Pain in unspecified joint
CPT/HCPCS: 36415; 73110; 73130; 80053; 85025; 85652; 86140; 86431

== ENCOUNTER 2023-09-04 07:36 | Outpatient (REF) | payer OTHER, SELFPAY ==
[2023-09-04 07:48] LABS: MANUAL DIFF FLAG NO
[2023-09-04 08:16] LABS: Basophils Absolute Auto 0.1 X10*3/uL (0.0-0.2); Basophils Percent Auto 0.9 % (0-2); Eosinophils Absolute Auto 0.2 X10*3/uL (0.0-0.4); Eosinophils Percent Auto 2.4 % (0-4); Hematocrit 36.2 % (37.0-47.0); Hemoglobin 12.4 g/dl (12.0-16.0); Imm Gran Abs Auto 0.03 X10*3/uL (0.00-0.03); Imm Gran Pct Auto 0.3 % (0.0-0.4); Lymphocytes Percent Auto 21.9 % (20-40); Mean Corpuscular HGB Conc 34.3 g/dl (31.0-35.0); Mean Corpuscular Volume 87.7 fL (80.0-98.0); Mean Platelet Volume 9.5 fL (9.4-12.3); Monocytes Absolute Auto 0.4 X10*3/uL (0.1-1.2); Monocytes Percent Auto 4.4 % (2-11); Neutrophils Absolute Auto 6.3 x10*3/uL (2.0-8.3); Neutrophils Percent Auto 70.1 % (45-73); Platelet Count 322 X10*3/uL (160-400); Red Blood Count 4.13 X10*6/uL (4.20-5.50); Red Cell Distribution Width 14.6 % (11.0-16.0); White Blood Count 9.1 X10*3/uL (4.8-10.8)
[2023-09-04 08:50] LABS: Alanine Aminotransferase 9 U/L (0-31); Alkaline Phosphatase 62 U/L (39-117); Anion Gap 14 (12-20); Aspartate Amino Transferase 19 U/L (5-31); Bilirubin Total 0.4 mg/dL (0.0-1.0); Blood Urea Nitrogen 9 mg/dL (9-16); C Reactive Protein 0.27 mg/dL (< or = 0.50); Calcium 9.6 mg/dL (8.4-10.2); Carbon Dioxide 23 mmol/L (22-29); Chloride 107 mmol/L (96-108); Estimated Glomerular Filt Rate > 60; Glucose Random 88 mg/dL (60-115); Potassium 4.1 mmol/L (3.3-5.1); Sodium 140 mmol/L (135-145); Total Protein 7.5 g/dL (6.5-8.0)
[2023-09-04 08:54] LABS: Erythrocyte Sedimentation Rate 20 MM/HR (0-20)
== END 2023-09-04 07:37 | disposition home or self-care (01) ==
LOC: HO.LAB 07:36
PROVIDERS: PCP Internal Medicine; Visit Provider Student in an Organized Health Care Education/Training Program
DX: Z79.631 Long term (current) use of antimetabolite agent (principal)
CPT/HCPCS: 36415; 80053; 85025; 85652; 86140

== ENCOUNTER 2023-09-16 07:43 | Outpatient (AMB) | payer OTHER, SELFPAY ==
--- NOTE | 2023-09-16 07:48 | MHC.OFFVIS ---
Vital Signs 09/16/23 07:49 Height 5 ft 7 in Weight 195 lb 5.273 oz BMI 30.6 BP 122/70 Blood Pressure Location Lt brachial Position Sitting Pulse 79 Pulse Oximetry (%) 98 Intake Visit Reasons: RA Intake Note: Patient last seen 07/17/23 presents today for follow up and test results. Patient is currently taking MTX 6 tabs weekly and Prednisone 2.5, 2 tabs QD. Patient needs refills on both meds. Allergies almond Allergy (Verified 09/16/23 07:49) Itching cruz [cherries] Allergy (Verified 09/16/23 07:49) Itching peach Allergy (Verified 09/16/23 07:49) Itching amoxicillin Adverse Reaction (Mild, Verified 09/16/23 07:49) Confusion Medication List - Last Reconciled 09/16/23 by Chema Avelar MD arm brace (Wrist Brace) wear at night on right wrist baclofen 10 - 20 mg PO TID cetirizine 10 mg PO DAILY cholecalciferol (vitamin D3) 50 mcg PO DAILY clonidine HCl 0.1 mg PO TID PRN fluticasone propionate 50 mcg/actuation (Flonase Allergy Relief) 2 sprays intranasal DAILY folic acid 1 mg PO DAILY gabapentin 400 mg PO TID hydroxyzine pamoate 25 mg PO BID levothyroxine 50 mcg PO DAILY methotrexate sodium Take 6 tabs weekly for 2 weeks then 8 tabs weekly naltrexone microspheres ER (Vivitrol) 380 mg IM naproxen 500 mg PO BID prednisone Take 3 tabs daily for 1 month then remain on 2 tabs daily trazodone 100 mg PO BEDTIME PRN HPI Comments Details: 43-year-old female with seropositive rheumatoid arthritis returns for follow-up. She has been taking methotrexate 15 mg weekly for the last 2 months as well as prednisone 5 mg daily. She did not increase the methotrexate to 20 mg weekly as instructed. She states that she continues to have multiple joint pain especially her ankles, elbows, fingers, ankles, knees. Initial history by Dr. Funes: The patient is seen today for evaluation of positive CHRISTINE, positive rheumatoid factor and right wrist pain. She has a history of widespread pains for a number of years. This includes the neck, upper back, lower back, shoulders, hands, wrists, knees, and feet. She had seen Dr. Tapia, a manager [employer], back in 2011. There was wrist pain at that time but no swelling was seen. He felt she had fibromyalgia. Those pains have continued. She also gets intermittent hand numbness. The right wrist pain has been accompanied by some nocturnal sensation of swelling when she awakens in the morning. Every night she gets hand paresthesias right greater than left. There is also occasional paresthesias in the hands during the day. She was taking some naproxen and meloxicam was added to that about 2 weeks ago. There has been no improvement so far. She also apparently had some physical therapy, acupuncture and chiropractic treatment in the past. She has known about having a hepatitis C infection for about 15 years. This was acquired through IV drug abuse. She had a relapse and was on methadone after that and has not received any treatment for the hep C. There is a GI visit her or ID visit planned in the future to look into that. Her her feet are also painful across the 1st MTP joints. They also seem to have intermittent paresthesias. She has notices few dark in spots in the left foot region. [facility] Medical History Numbness of right hand Rheumatoid factor positive CHRISTINE positive Pain and swelling of right wrist Arthralgia of multiple joints Tobacco use Chronic hepatitis C without mention of hepatic coma Fibromyalgia Asthma Surgical History History of liver biopsy Hx of section Family History Mother Ovarian cancer, Onset Age: 54 Sister Endometriosis Social History Alcohol intake: current Alcohol intake frequency: holidays/special occasions only Patient Tobacco Use Status: Current everyday Tobacco user Tobacco use type: Smokeless Tobacco e-Cigarette/Vaping Use: Currently Using Review of Systems [facility] [place] Reports arthralgias and Reports joint swelling Physical Exam Vital Signs: Last Vital Signs Pulse 79 09/16/23 07:49 BP 122/70 09/16/23 07:49 Pulse Ox 98 09/16/23 07:49 BMI result Body Mass Index 30.6 Const General: cooperative, healthy appearing and comfortable Nutritional Appearance: average body habitus Orientation/consciousness: patient oriented x3 Limitations: no limitations HEENT Head: Yes normocephalic and Yes atraumatic Resp Effort & Inspection: normal respiratory effort and able to speak in complete sentences Cardio Rate: regular rate Rhythm: regular rhythm Skin General skin exam: no rashes or lesions noted Neuro General: patient oriented x3 Extrem Other: Patient not wearing compression gloves today No wrist swelling laterally Bilateral wrist tenderness to palpation Bilateral 2nd through 5th MCP tenderness Bilateral 2nd through 5th PIP and DIP tenderness Bilateral elbow tenderness to palpation without swelling or warmth Bilateral ankle tenderness without swelling Results Reviewed Results Reviewed: Laboratory Tests 07/27/22 07/27/22 19:28 19:28 WBC 11.2 H Hgb 13.0 Plt Count 319 Creatinine 1.17 AST 23 ALT 18 Albumin 4.6 Lab work from [place]: March 2022: White count 7.9, hemoglobin 12.5, platelet count [id number], ESR 36. CCP antibody negative, CHRISTINE positive at a titer of greater than 2560 with atypical speckled pattern, rheumatoid factor 33, CRP less than 0.11 October 2022: Hepatitis C viral load quantitative 230,650 Right wrist films read as normal in 2011 and again in 2021 Hepatitis-C viral load 04/2023 undetectable Assessment & Plan Assessment & Plan (1) Seropositive rheumatoid arthritis: Comment: +RF -ve CCP dx 07/2023 MTX 07/2023 Code(s): M05.9 - Rheumatoid arthritis with rheumatoid factor, unspecified Category: Medical Plan: 43-year-old female with seropositive RA returns for follow-up. Doing better on methotrexate 15 mg weekly, folic acid 1 mg daily and prednisone 5 mg daily, swelling has significantly improved but continues to have multiple tender joints Increase methotrexate to 20 mg weekly split dose Prednisone 5 mg daily for 1 month then reduce to 2.5 mg daily Labs before next visit in 2 months (2) [facility] methotrexate user: Code(s): Z79.631 - [facility] (current) use of antimetabolite agent Category: Medical Plan: Monitor safety labs. Patient using Nexplanon for contraception (3) CHRISTINE positive: Code(s): R76.8 - Other specified abnormal immunological findings in serum Category: Medical Plan: Sub serologies are negative, can be related to history of hepatitis-C (4) Chronic hepatitis C without mention of hepatic coma: Code(s): B18.2 - Chronic viral hepatitis C Category: Medical Qualifiers: Hepatic coma status: without hepatic coma Qualified Code(s): B18.2 - Chronic viral hepatitis C Plan: Completed hepatitis C treatment and viral load was undetected Plan I spent 27 minutes reviewing patient's chart, evaluating patient, placing orders, counseling patient and documenting in the chart Orders: Orders Comprehensive Met. 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 Complete Blood Count Auto Diff 2 Months M05.9 - Rheumatoid arthritis with rheumatoid factor, unspecified, 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 Medications: Changed From prednisone Take 3 tabs daily for 1 month then remain on 2 tabs daily 150 tabs 1RF To prednisone Take 2 tabs daily for 1 month then remain on 1 tabs daily 90 tabs 1RF From methotrexate sodium Take 6 tabs weekly for 2 weeks then 8 tabs weekly 64 tabs 0RF To methotrexate sodium Split dose into 4 tabs twice 12-24 hours apart 20 mg (8 x 2.5 mg) PO QWEEK 72 tabs 0RF Coding Level of Care Code Est Pt Level 4 (80518) Diagnoses Seropositive rheumatoid arthritis M05.9 [facility] methotrexate user Z79.631 CHRISTINE positive R76.8 Chronic hepatitis C without hepatic coma B18.2 Hepatic coma status: without hepatic coma
[2023-09-16 07:49] VITALS: BP 122/70; PULSE 79; O2SAT 98; BMI 30.6
== END 2023-09-16 08:16 | disposition home or self-care (01) ==
PROVIDERS: PCP Internal Medicine; Visit Provider Student in an Organized Health Care Education/Training Program
DX: M05.79 Rheumatoid arthritis with rheumatoid factor of multiple sites without organ or systems involvement (principal); Z79.631 Long term (current) use of antimetabolite agent; R76.8 Other specified abnormal immunological findings in serum; B18.2 Chronic viral hepatitis C
CPT/HCPCS: 99214

== ENCOUNTER → 2023-09-16 07:43 | Outpatient (BNVA) | payer OTHER, SELFPAY | PROVIDERS: PCP Internal Medicine; Visit Provider Student in an Organized Health Care Education/Training Program | DX: M05.9 Rheumatoid arthritis with rheumatoid factor, unspecified (principal); R76.8 Other specified abnormal immunological findings in serum; B18.2 Chronic viral hepatitis C; Z79.631 Long term (current) use of antimetabolite agent; Z79.52 Long term (current) use of systemic steroids | CPT/HCPCS: 99212 ==

== ENCOUNTER 2024-01-10 07:49 | Outpatient (REF) | payer OTHER, SELFPAY ==
[2024-01-10 08:11] LABS: MANUAL DIFF FLAG NO
[2024-01-10 08:32] LABS: Basophils Absolute Auto 0.1 X10*3/uL (0.0-0.2); Basophils Percent Auto 0.7 % (0-2); Eosinophils Percent Auto 0.3 % (0-4); Hemoglobin 13.3 g/dl (12.0-16.0); Imm Gran Abs Auto 0.04 X10*3/uL (0.00-0.03); Imm Gran Pct Auto 0.3 % (0.0-0.4); Lymphocytes Absolute Auto 1.5 X10*3/uL (1.2-4.9); Lymphocytes Percent Auto 13.2 % (20-40); Mean Corpuscular HGB Conc 33.3 g/dl (31.0-35.0); Mean Corpuscular Hemoglobin 30.4 pg (27.0-33.0); Mean Corpuscular Volume 91.5 fL (80.0-98.0); Mean Platelet Volume 9.4 fL (9.4-12.3); Monocytes Absolute Auto 0.4 X10*3/uL (0.1-1.2); Monocytes Percent Auto 3.1 % (2-11); Neutrophils Absolute Auto 9.5 x10*3/uL (2.0-8.3); Neutrophils Percent Auto 82.4 % (45-73); Platelet Count 329 X10*3/uL (160-400); Red Blood Count 4.37 X10*6/uL (4.20-5.50); Red Cell Distribution Width 13.4 % (11.0-16.0); White Blood Count 11.5 X10*3/uL (4.8-10.8)
[2024-01-10 09:05] LABS: Alanine Aminotransferase 10 U/L (0-31); Albumin Level 4.3 g/dL (3.5-5.0); Alkaline Phosphatase 81 U/L (39-117); Anion Gap 11 (12-20); Aspartate Amino Transferase 15 U/L (5-31); Bilirubin Total 0.4 mg/dL (0.0-1.0); Blood Urea Nitrogen 8 mg/dL (9-16); C Reactive Protein 0.39 mg/dL (< or = 0.50); Calcium 9.7 mg/dL (8.4-10.2); Carbon Dioxide 27 mmol/L (22-29); Chloride 105 mmol/L (96-108); Estimated Glomerular Filt Rate > 60; Glucose Random 118 mg/dL (60-115); Potassium 4.1 mmol/L (3.3-5.1); Sodium 139 mmol/L (135-145)
[2024-01-10 09:10] LABS: Erythrocyte Sedimentation Rate 23 MM/HR (0-20)
== END 2024-01-10 07:50 | disposition home or self-care (01) ==
LOC: HO.LAB 07:49
PROVIDERS: PCP Internal Medicine; Visit Provider Student in an Organized Health Care Education/Training Program
DX: M05.9 Rheumatoid arthritis with rheumatoid factor, unspecified (principal); Z79.631 Long term (current) use of antimetabolite agent
CPT/HCPCS: 36415; 80053; 85025; 85652; 86140

== ENCOUNTER 2024-01-20 07:46 | Outpatient (AMB) | payer OTHER, SELFPAY ==
--- NOTE | 2024-01-20 07:48 | MHC.OFFVIS ---
Vital Signs 01/20/24 07:52 Height 5 ft 7 in Weight 192 lb 0.362 oz BMI 30.1 BP 112/70 Blood Pressure Location Lt brachial Position Sitting Pulse 79 Pulse Source Pulse Oximeter Pulse Oximetry (%) 98 Oxygen Delivery Method Room Air Intake Visit Reasons: RA/CM Intake Note: Patient presents for RA. Allergies almond Allergy (Verified 01/20/24 07:51) Itching cruz [cherries] Allergy (Verified 01/20/24 07:51) Itching peach Allergy (Verified 01/20/24 07:51) Itching amoxicillin Adverse Reaction (Mild, Verified 01/20/24 07:51) Confusion Medication List - Last Reconciled 01/20/24 by Chema Avelar MD arm brace (Wrist Brace) wear at night on right wrist baclofen 10 - 20 mg PO TID cetirizine 10 mg PO DAILY cholecalciferol (vitamin D3) 50 mcg PO DAILY clonidine HCl 0.1 mg PO TID PRN fluticasone propionate 50 mcg/actuation (Flonase Allergy Relief) 2 sprays intranasal DAILY folic acid 1 mg PO DAILY gabapentin 400 mg PO TID hydroxyzine pamoate 25 mg PO BID levothyroxine 50 mcg PO DAILY methotrexate sodium 25 mg (10 x 2.5 mg) PO QWEEK naltrexone microspheres ER (Vivitrol) 380 mg IM prednisone Take 2 tabs daily for 1 month then remain on 1 tab daily trazodone 100 mg PO BEDTIME PRN HPI Comments Details: 43-year-old female with seropositive rheumatoid arthritis returns for follow-up. She has been taking methotrexate 20 mg weekly and prednisone 5 mg daily. She states that she was doing well until 1-2 weeks ago when she ran out of methotrexate. She had not done her blood work and methotrexate was not refilled. She was having more pains. Did not have any significant swelling. She just started taking it a week ago. Initial history by Dr. Funes: The patient is seen today for evaluation of positive CHRISTINE, positive rheumatoid factor and right wrist pain. She has a history of widespread pains for a number of years. This includes the neck, upper back, lower back, shoulders, hands, wrists, knees, and feet. She had seen Dr. Tapia, a assistant plant control operator, back in 2011. There was wrist pain at that time but no swelling was seen. He felt she had fibromyalgia. Those pains have continued. She also gets intermittent hand numbness. The right wrist pain has been accompanied by some nocturnal sensation of swelling when she awakens in the morning. Every night she gets hand paresthesias right greater than left. There is also occasional paresthesias in the hands during the day. She was taking some naproxen and meloxicam was added to that about 2 weeks ago. There has been no improvement so far. She also apparently had some physical therapy, acupuncture and chiropractic treatment in the past. She has known about having a hepatitis C infection for about 15 years. This was acquired through IV drug abuse. She had a relapse and was on methadone after that and has not received any treatment for the hep C. There is a GI visit her or ID visit planned in the future to look into that. Her her feet are also painful across the 1st MTP joints. They also seem to have intermittent paresthesias. She has notices few dark in spots in the left foot region. [facility] Medical History Numbness of right hand Rheumatoid factor positive CHRISTINE positive Pain and swelling of right wrist Arthralgia of multiple joints Tobacco use Chronic hepatitis C without mention of hepatic coma Fibromyalgia Asthma Surgical History History of liver biopsy Hx of section Family History Mother Ovarian cancer, Onset Age: 54 Sister Endometriosis Social History Alcohol intake: current Alcohol intake frequency: holidays/special occasions only Patient Tobacco Use Status: Current everyday Tobacco user Tobacco use type: Smokeless Tobacco e-Cigarette/Vaping Use: Currently Using Review of Systems [facility] [place] Reports arthralgias and Denies joint swelling Physical Exam Vital Signs: Last Vital Signs Pulse 79 01/20/24 07:52 BP 112/70 01/20/24 07:52 Pulse Ox 98 01/20/24 07:52 Oxygen Delivery Method Room Air 01/20/24 07:52 BMI result Body Mass Index 30.1 Const General: cooperative, healthy appearing and comfortable Nutritional Appearance: average body habitus Orientation/consciousness: patient oriented x3 Limitations: no limitations HEENT Head: Yes normocephalic and Yes atraumatic Resp Effort & Inspection: normal respiratory effort and able to speak in complete sentences Cardio Rate: regular rate Rhythm: regular rhythm Skin General skin exam: no rashes or lesions noted Neuro General: patient oriented x3 Extrem Other: No wrist swelling laterally Bilateral wrist tenderness to palpation Bilateral 2nd through 5th MCP tenderness Bilateral 2nd through 5th PIP and DIP tenderness Bilateral elbow tenderness to palpation without swelling or warmth Bilateral ankle tenderness without swelling Results Reviewed Results Reviewed: Laboratory Tests 07/27/22 07/27/22 19:28 19:28 WBC 11.2 H Hgb 13.0 Plt Count 319 Creatinine 1.17 AST 23 ALT 18 Albumin 4.6 Lab work from [place]: March 2022: White count 7.9, hemoglobin 12.5, platelet count [id number], ESR 36. CCP antibody negative, CHRISTINE positive at a titer of greater than 2560 with atypical speckled pattern, rheumatoid factor 33, CRP less than 0.11 October 2022: Hepatitis C viral load quantitative 230,650 Right wrist films read as normal in 2011 and again in 2021 Hepatitis-C viral load 04/2023 undetectable Assessment & Plan Assessment & Plan (1) Seropositive rheumatoid arthritis: Comment: +RF -ve CCP dx 07/2023 MTX 07/2023 Code(s): M05.9 - Rheumatoid arthritis with rheumatoid factor, unspecified Category: Medical Plan: 43-year-old female with seropositive RA returns for follow-up. 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 Patient using Nexplanon for contraception (3) CHRISTINE positive: Code(s): R76.8 - Other specified abnormal immunological findings in serum Category: Medical Plan: Sub serologies are negative, can be related to history of hepatitis-C (4) Chronic hepatitis C without mention of hepatic coma: Code(s): B18.2 - Chronic viral hepatitis C Category: Medical Qualifiers: Hepatic coma status: without hepatic coma Qualified Code(s): B18.2 - Chronic viral hepatitis C Plan: Completed hepatitis C treatment and viral load was undetected (5) Fibromyalgia: Code(s): M79.7 - Fibromyalgia Category: Medical Plan: Discussed management of fibromyalgia with patient. Is a noninflammatory, non-autoimmune central afferent processing disorder leading to a diffuse pain syndrome. Patient follows up regularly with psychotherapist and psychiatrist. Try to follow sleep hygiene practices. Discuss referral for a sleep study by PCP to rule out GERSON. Discuss CBT for sleep with psychotherapist. Patient would benefit from increased physical activity, either through formal physical therapy or by joining a gym. Advised patient that she should start activity slowly and increase as tolerated. Consider low-impact exercises such as walking, swimming, aqua therapy stretching, yoga. Plan I spent 45 minutes reviewing patient's chart, evaluating patient, placing orders, counseling patient and documenting in the chart Orders: Orders Complete Blood Count Auto Diff 3 Months M05.9 - Rheumatoid arthritis with rheumatoid factor, unspecified, Z79.631 - assisted (current) use of antimetabolite agent Comprehensive Met. Panel 3 Months M05.9 - Rheumatoid arthritis with rheumatoid factor, unspecified, Z79.631 - rn long term care (current) use of antimetabolite agent C Reactive Protein 3 Months M05.9 - Rheumatoid arthritis with rheumatoid factor, unspecified, Z79.631 - rn long term care (current) use of antimetabolite agent Erythrocyte Sedimentation Rate 3 Months M05.9 - Rheumatoid arthritis with rheumatoid factor, unspecified, Z79.631 - rn long term care (current) use of antimetabolite agent Medications: Changed From prednisone 2.5 mg PO DAILY 30 tabs 1RF To prednisone Take 2 tabs daily for 1 month then remain on 1 tab daily 120 tabs 0RF From methotrexate sodium 20 mg (8 x 2.5 mg) PO QWEEK 32 tabs 0RF To methotrexate sodium 25 mg (10 x 2.5 mg) PO QWEEK 120 tabs 0RF Coding Level of Care Code Est Pt Level 5 (84058) Diagnoses Seropositive rheumatoid arthritis M05.9 rn 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
[2024-01-20 07:52] VITALS: BP 112/70; PULSE 79; O2SAT 98; BMI 30.1
== END 2024-01-20 08:18 | disposition home or self-care (01) ==
PROVIDERS: PCP Internal Medicine; Visit Provider Student in an Organized Health Care Education/Training Program
DX: M05.79 Rheumatoid arthritis with rheumatoid factor of multiple sites without organ or systems involvement (principal); Z79.631 Long term (current) use of antimetabolite agent; R76.8 Other specified abnormal immunological findings in serum; B18.2 Chronic viral hepatitis C; M79.7 Fibromyalgia
CPT/HCPCS: 99215

== ENCOUNTER → 2024-01-20 07:46 | Outpatient (BNVA) | payer OTHER, SELFPAY | PROVIDERS: PCP Internal Medicine; Visit Provider Student in an Organized Health Care Education/Training Program | DX: M05.79 Rheumatoid arthritis with rheumatoid factor of multiple sites without organ or systems involvement (principal); R76.8 Other specified abnormal immunological findings in serum; M79.7 Fibromyalgia; B18.2 Chronic viral hepatitis C; Z79.631 Long term (current) use of antimetabolite agent | CPT/HCPCS: 99212 ==

== ENCOUNTER 2024-02-07 16:28 | Emergency (ER) | payer OTHER, SELFPAY ==
--- NOTE | ~2024-02-07 | XR_ITS ---
EXAMINATION: XR CHEST CLINICAL INFORMATION: Chest pain. COMPARISON: Chest radiograph 07/27/2022. TECHNIQUE: 2 views of the chest were obtained. FINDINGS: No significant abnormality is noted involving the heart, lungs, mediastinum, bony thorax or soft tissues. XR/XR chest 2V IMPRESSION: Unremarkable examination. Electronically signed by: Laquita Catherine MD 02/07/2024 07:43 PM EDT RP
[2024-02-07 17:11] VITALS: BP 138/85; PULSE 97; RESP 18; TEMP 36.8; O2SAT 99; BMI 29.9
--- NOTE | 2024-02-07 17:11 | ED_ITS ---
HPI - URI/Sore Throat General Chief Complaint: Headache Stated Complaint: cough, chest pain, sinus pressure Time Seen by Provider: 02/07/24 19:44 Source: patient Limitations: no limitations History of Present Illness ED Provider: Neha Thomas PA-C HPI Narrative: 43-year-old female with history of asthma presents with viral syndrome x1 week. Associated cough with a wheezing at times, nasal congestion, sinus pressure, headache, sore throat and generalized malaise. Denies fever. Patient states she was seen by her primary care provider, she was given a course of antibiotic for sinusitis. Her symptoms have persisted. Patient also complains of diffuse chest discomfort worse with breathing and coughing, that radiates to her back. Related Data Home Medications ?Medication ?Instructions ?Recorded ?Confirmed cholecalciferol (vitamin D3) 50 50 mcg PO DAILY 07/04/22 01/20/24 mcg (2,000 unit) capsule baclofen 20 mg tablet 10 - 20 mg PO TID 11/08/22 01/20/24 clonidine HCl 0.1 mg tablet 0.1 mg PO TID PRN 11/08/22 01/20/24 levothyroxine 25 mcg tablet 50 mcg PO DAILY 12/20/22 01/20/24 gabapentin 400 mg capsule 400 mg PO TID 07/17/23 01/20/24 hydroxyzine pamoate 25 mg capsule 25 mg PO BID 07/17/23 01/20/24 naltrexone microspheres 380 mg 380 mg IM 07/17/23 01/20/24 intramuscular suspension,extended release (Vivitrol) trazodone 50 mg tablet 100 mg PO BEDTIME PRN 07/17/23 01/20/24 Previous Rx's ?Medication ?Instructions ?Recorded cetirizine 10 mg tablet 10 mg PO DAILY #60 tabs 04/12/22 fluticasone propionate 50 2 spray intranasal DAILY #16 grams 04/12/22 mcg/actuation nasal spray,suspension (Flonase Allergy Relief) arm brace (Wrist Brace) #1 ea 11/15/22 prednisone 2.5 mg tablet See Rx Instructions PO .COMPLEX 01/20/24 #120 tabs folic acid 1 mg tablet 1 mg PO DAILY #90 tabs 02/04/24 methotrexate sodium 2.5 mg tablet 25 mg (10 x 2.5 mg) PO QWEEK #120 02/04/24 tabs meloxicam 15 mg tablet 15 mg PO DAILY #7 tabs 02/07/24 methocarbamol 750 mg tablet 750 mg PO TID #10 tabs 02/07/24 Allergies Allergy/AdvReac Type Severity Reaction Status Date / Time almond Allergy Itching Verified 02/07/24 17:15 cruz [cherries] Allergy Itching Verified 02/07/24 17:15 peach Allergy Itching Verified 02/07/24 17:15 amoxicillin AdvReac Mild Confusion Verified 02/07/24 17:15 Review of Systems 2 Review of Systems: Yes all other systems are reviewed and are negative Constitutional: Constitutional: Reports fatigue and Denies fever(s) ENT: Reports facial pain, Reports nasal congestion and Reports sore throat Cardiovascular: Cardiovascular: Reports chest pain and Denies dyspnea Respiratory: Respiratory: Reports cough, Denies dyspnea and Reports wheezing Endocrine: Endocrine: Reports fatigue Allergic/Immunologic: Allergic/Immunologic: Reports wheezing PMFSH Past Medical History Attestation statement: The following information was validated with the patient. Medical History Numbness of right hand Rheumatoid factor positive CHRISTINE positive Pain and swelling of right wrist Arthralgia of multiple joints Tobacco use Chronic hepatitis C without mention of hepatic coma Fibromyalgia Asthma Surgical History History of liver biopsy Hx of section Family History Family History Mother Ovarian cancer, Onset Age: 54 Sister Endometriosis Social History Social History Alcohol intake: current Alcohol intake frequency: holidays/special occasions only Patient Tobacco Use Status: Current everyday Tobacco user Tobacco use type: Smokeless Tobacco e-Cigarette/Vaping Use: Currently Using Advance Directives: No Advance Directives Information Provided: Yes Physical Exam 2 Vital Signs: Vital Signs: Last Vital Signs Temp 97.9 F 02/07/24 19:57 Pulse 65 02/07/24 19:57 Resp 17 02/07/24 19:57 BP 118/80 02/07/24 19:57 Pulse Ox 98 02/07/24 19:57 O2 Del Method Room Air 02/07/24 19:57 BMI result Body Mass Index 29.9 Const: Other: Awake, overall well-appearing, tearful, anxious and somewhat hostile Orientation/consciousness: patient oriented x3 Chest: Other: Pain elicited with palpation on chest wall Resp: Other: Lungs clear to auscultation no wheezing, no active cough, she is not tachypneic Cardio: Other: Normal peripheral perfusion Skin: Other: Warm dry no rash Neuro: General: patient oriented x3, no focal motor deficits and CN's II-XI intact bilaterally Psych: Other: Anxious, tearful, somewhat hostile Course Course Course Narrative: This is an RME performed by Lemuel Ramires, [employer]ER: Additional HPI, ROS, PE not included below will be deferred to primary provider. Patient is a 43-year-old female who presents emergency department for evaluation, she states that she has been ill for approximately 2 weeks with congestion, cough, sinus pressure, chest pain. One week ago she was seen at her primary care doctor's office and prescribed doxycycline and a prednisone taper and has since completed the entire course. She reports that she has had no improvement in symptoms, she continues to feel unwell. Reporting severe pain 10/10 to her bilateral frontal sinuses diffuse headache, a pain in her right upper anterior chest that feels shooting directly into her back, and ?lung pain? when she is breathing. Very anxious, crying during evaluation. Plan: Viral serologies, serum labs, ECG, CXR Medical Decision Making Medical Decision Making [facility] Narrative: 43-year-old female with history of asthma presents with viral syndrome x1 week. Associated cough with a wheezing at times, nasal congestion, sinus pressure, headache, sore throat and generalized malaise. Denies fever. Patient states she was seen by her primary care provider, she was given a course of antibiotic for sinusitis. Her symptoms have persisted. Patient also complains of diffuse chest discomfort worse with breathing and coughing, that radiates to her back. Problem: Asthma History: Per patient I have considered the following differential diagnoses: Viral syndrome, strep pharyngitis, sinusitis, costochondritis, ACS, bronchitis, asthma exacerbation, pneumonia Plan: Patient is assessment began from triage, screening labs including chest x-ray and viral panel were obtained. Patient has asthma symptoms have resolved, her exam was unremarkable. Given constellation of viral sxs, much less likely for her to have a strep pharyngitis, testing is not indicated. In regard to her chest discomfort this is not ACS, the patient likely has costochondritis, and to note she has no risk factors for coronary artery disease. Troponin was obtained as well. We will send with further home care instructions, an anti- inflammatory and a muscle relaxant for her discomfort. She is asking for a work note. I have independently reviewed the following tests: Labs: No leukocytosis, not anemic, no electrolyte abnormality, viral panel negative, troponin negative Chest x-ray: XR/XR chest 2V IMPRESSION: Unremarkable examination. Electronically signed by: Laquita Catherine MD 02/07/2024 07:43 PM EDT RP Lab Data 02/07/24 17:40 02/07/24 17:40 Labs: Lab Results 02/07/24 Range/Units 17:40 WBC 11.4 H (4.8-10.8) X10*3/uL RBC 4.08 L (4.20-5.50) X10*6/uL Hgb 12.4 (12.0-16.0) g/dl Hct 36.2 L (37.0-47.0) % MCV 88.7 (80.0-98.0) fL MCH 30.4 (27.0-33.0) pg MCHC 34.3 (31.0-35.0) g/dl RDW 13.4 (11.0-16.0) % Plt Count 288 (160-400) X10*3/uL MPV 9.5 (9.4-12.3) fL Immature Gran % (Auto) 0.3 (0.0-0.4) % Neut % (Auto) 93.5 H (45-73) % Lymph % (Auto) 4.8 L (20-40) % Stearns % (Auto) 1.2 L (2-11) % Eos % (Auto) 0.0 (0-4) % Baso % (Auto) 0.2 (0-2) % Lymph # (Auto) 0.6 L (1.2-4.9) X10*3/uL Stearns # (Auto) 0.1 (0.1-1.2) X10*3/uL Eos # (Auto) 0.0 (0.0-0.4) X10*3/uL Baso # (Auto) 0.0 (0.0-0.2) X10*3/uL Abs Immat Gran (auto) 0.03 (0.00-0.03) X10*3/uL Absolute Neuts (auto) 10.6 H (2.0-8.3) x10*3/uL Absolute Nucleated RBC 0.000 (0.0-0.012) X10*3/uL Nucleated RBC % (auto) 0.0 (0.0-0.2) /100WBC Smear Tech's Comments VERIFIED PT 12.3 (10.9-12.4) SEC INR 1.1 (0.9-1.1) Sodium 141 (135-145) mmol/L Potassium 4.1 (3.3-5.1) mmol/L Chloride 108 (96-108) mmol/L Carbon Dioxide 26 (22-29) mmol/L Anion Gap 11 L (12-20) BUN 10 (9-16) mg/dL Creatinine 0.86 (0.5-1.4) mg/dL Estim Creat Clear Calc 97.2 Estimated GFR > 60 Random Glucose 124 H (60-115) mg/dL Calcium 9.9 (8.4-10.2) mg/dL Total Bilirubin 0.4 (0.0-1.0) mg/dL AST 18 (5-31) U/L ALT 9 (0-31) U/L Alkaline Phosphatase 73 (39-117) U/L Troponin I High Sens < 2.7 (<3.5-17.0) ng/L Total Protein 7.7 (6.5-8.0) g/dL Albumin 4.2 (3.5-5.0) g/dL Influenza Type A (PCR) NEGATIVE (Negative) Influenza Type B (PCR) NEGATIVE (Negative) RSV RNA Qual (PCR) NEGATIVE (Negative) SARS-CoV-2 RNA (RT-PCR) NEGATIVE (Negative) Discharge Plan Discharge Clinical Impression: Acute viral syndrome, Costochondritis Patient Disposition: Home, Self-Care Instructions: Costochondritis (ED), Viral Syndrome (ED) Additional Instructions: You have a virus causing your symptoms. There are numerous respiratory viruses circulating within the community, we typically tests for the most common infectious agents. You were screened for COVID, influenza and RSV, the panel was negative. There were no concerning changes on your chest x-ray, you do not have pneumonia. Regard to your chest discomfort, this is costochondritis, as I explained, is inflammation of your rib cartilage. Seek care instructions. Use the meloxicam as directed, this is an anti-inflammatory. Take it with food. Use the methocarbamol, this is a muscle relaxant, as needed for your discomfort. To know it will cause drowsiness, do not drive or operate machinery while taking the medication. Follow up with your primary care provider as needed. Prescriptions: New methocarbamol 750 mg tablet 750 mg PO TID Qty: 10 0RF meloxicam 15 mg tablet 15 mg PO DAILY Qty: 7 0RF No Action (DME) Wrist Brace Misc See Rx Instructions .Route Qty: 1 0RF Rx Instructions: wear at night on right wrist methotrexate sodium 2.5 mg tablet 25 mg PO QWEEK Qty: 120 0RF folic acid 1 mg tablet 1 mg PO DAILY Qty: 90 1RF fluticasone propionate [Flonase Allergy Relief] 50 mcg/actuation spray,suspension 2 spray intranasal DAILY Qty: 16 0RF Rx Instructions: administer into each nostril cetirizine 10 mg tablet 10 mg PO DAILY Qty: 60 0RF cholecalciferol (vitamin D3) 50 mcg (2,000 unit) capsule 50 mcg PO DAILY levothyroxine 25 mcg tablet 50 mcg PO DAILY baclofen 20 mg tablet 10 - 20 mg PO TID clonidine HCl 0.1 mg tablet 0.1 mg PO TID PRN prednisone 2.5 mg tablet See Rx Instructions PO .COMPLEX Qty: 120 0RF Rx Instructions: Take 2 tabs daily for 1 month then remain on 1 tab daily Vivitrol 380 mg suspension,extended rel recon 380 mg IM gabapentin 400 mg capsule 400 mg PO TID trazodone 50 mg tablet 100 mg PO BEDTIME PRN hydroxyzine pamoate 25 mg capsule 25 mg PO BID Stand Alone Forms: Work/School Release Print Language: Mongolian
--- NOTE | 2024-02-07 17:15 | ECG_ITS ---
Test Reason : CHEST PAIN Blood Pressure : / mmHG Vent. Rate : 076 BPM Atrial Rate : 076 BPM P-R Int : 144 ms QRS Dur : 064 ms QT Int : 342 ms P-R-T Axes : 052 -10 020 degrees QTc Int : 384 ms Normal sinus rhythm Nonspecific T wave abnormality Abnormal ECG When compared with ECG of 27-JUL-2022 19:20, No significant change was found Referred By: Vanna Ramires Electronically Signed By:Lyndon Borrego
[2024-02-07 17:55] LABS: INTERNATIONAL NORM RATIO 1.1 (0.9-1.1); Prothrombin Time 12.3 SEC (10.9-12.4)
[2024-02-07 18:07] LABS: Basophils Percent Auto 0.2 % (0-2); Hematocrit 36.2 % (37.0-47.0); Hemoglobin 12.4 g/dl (12.0-16.0); Imm Gran Abs Auto 0.03 X10*3/uL (0.00-0.03); Imm Gran Pct Auto 0.3 % (0.0-0.4); Lymphocytes Absolute Auto 0.6 X10*3/uL (1.2-4.9); Lymphocytes Percent Auto 4.8 % (20-40); MANUAL DIFF FLAG SCAN; Mean Corpuscular HGB Conc 34.3 g/dl (31.0-35.0); Mean Corpuscular Hemoglobin 30.4 pg (27.0-33.0); Mean Corpuscular Volume 88.7 fL (80.0-98.0); Mean Platelet Volume 9.5 fL (9.4-12.3); Monocytes Absolute Auto 0.1 X10*3/uL (0.1-1.2); Monocytes Percent Auto 1.2 % (2-11); Neutrophils Absolute Auto 10.6 x10*3/uL (2.0-8.3); Neutrophils Percent Auto 93.5 % (45-73); Platelet Count 288 X10*3/uL (160-400); Red Blood Count 4.08 X10*6/uL (4.20-5.50); Red Cell Distribution Width 13.4 % (11.0-16.0); SCAN SMEAR FLAG 1; White Blood Count 11.4 X10*3/uL (4.8-10.8)
[2024-02-07 18:09] LABS: Alanine Aminotransferase 9 U/L (0-31); Albumin Level 4.2 g/dL (3.5-5.0); Alkaline Phosphatase 73 U/L (39-117); Anion Gap 11 (12-20); Aspartate Amino Transferase 18 U/L (5-31); Bilirubin Total 0.4 mg/dL (0.0-1.0); Blood Urea Nitrogen 10 mg/dL (9-16); Calcium 9.9 mg/dL (8.4-10.2); Carbon Dioxide 26 mmol/L (22-29); Chloride 108 mmol/L (96-108); Creatinine Clr Calc Pharmacy 97.2; Estimated Glomerular Filt Rate > 60; Glucose Random 124 mg/dL (60-115); Potassium 4.1 mmol/L (3.3-5.1); Sodium 141 mmol/L (135-145); Total Protein 7.7 g/dL (6.5-8.0)
[2024-02-07 18:17] LABS: Troponin-I High Sensitivity < 2.7 ng/L (<3.5-17.0)
[2024-02-07 18:27] LABS: Influenza A PCR NEGATIVE (Negative); Influenza B PCR NEGATIVE (Negative); Resp Syncy Virus RNA Qual PCR NEGATIVE (Negative); SARS COV2 PCR INHOUSE NEGATIVE (Negative)
[2024-02-07 18:31] LABS: SLIDE REVIEW VERIFIED
[2024-02-07 19:57] VITALS: BP 118/80; PULSE 65; RESP 17; TEMP 36.6; O2SAT 98
[2024-02-07 20:30] VITALS: BP 118/80; PULSE 65; RESP 17; TEMP 36.6; O2SAT 98
== END 2024-02-07 20:30 | disposition home or self-care (01) ==
PROVIDERS: Nurse Practitioner Family; Emergency Provider Emergency Medicine; PCP Internal Medicine
DX: B34.9 Viral infection, unspecified (principal); M94.0 Chondrocostal junction syndrome [Tietze]; R05.9 Cough, unspecified; R07.89 Other chest pain; R51.9 Headache, unspecified; F17.210 Nicotine dependence, cigarettes, uncomplicated; Z03.818 Encounter for observation for suspected exposure to other biological agents ruled out; Z79.899 Other long term (current) drug therapy
CPT/HCPCS: 0241U; 71046; 80053; 84484; 85025; 85610; 93005; 99283; 99284

== ENCOUNTER → 2024-02-07 17:15 | Outpatient (BNV) | payer OTHER, SELFPAY | PROVIDERS: Emergency Provider Emergency Medicine; PCP Internal Medicine; Visit Provider Internal Medicine Cardiovascular Disease | DX: R94.31 Abnormal electrocardiogram [ECG] [EKG] (principal) | CPT/HCPCS: 93010 ==

== ENCOUNTER 2024-04-30 07:49 | Outpatient (REF) | payer OTHER, SELFPAY ==
[2024-04-30 12:51] LABS: MANUAL DIFF FLAG NO
[2024-04-30 13:16] LABS: Basophils Absolute Auto 0.1 X10*3/uL (0.0-0.2); Basophils Percent Auto 0.6 % (0-2); Eosinophils Percent Auto 0.3 % (0-4); Hematocrit 34.4 % (37.0-47.0); Hemoglobin 11.6 g/dl (12.0-16.0); Imm Gran Abs Auto 0.04 X10*3/uL (0.00-0.03); Imm Gran Pct Auto 0.3 % (0.0-0.4); Lymphocytes Absolute Auto 1.5 X10*3/uL (1.2-4.9); Lymphocytes Percent Auto 12.5 % (20-40); Mean Corpuscular HGB Conc 33.7 g/dl (31.0-35.0); Mean Corpuscular Hemoglobin 30.5 pg (27.0-33.0); Mean Corpuscular Volume 90.5 fL (80.0-98.0); Mean Platelet Volume 9.7 fL (9.4-12.3); Monocytes Absolute Auto 0.5 X10*3/uL (0.1-1.2); Monocytes Percent Auto 4.2 % (2-11); Neutrophils Absolute Auto 10.1 x10*3/uL (2.0-8.3); Neutrophils Percent Auto 82.1 % (45-73); Platelet Count 390 X10*3/uL (160-400); Red Cell Distribution Width 15.1 % (11.0-16.0); White Blood Count 12.4 X10*3/uL (4.8-10.8)
[2024-04-30 13:52] LABS: Alanine Aminotransferase 11 U/L (0-31); Albumin Level 3.9 g/dL (3.5-5.0); Alkaline Phosphatase 71 U/L (39-117); Anion Gap 7 (12-20); Aspartate Amino Transferase 19 U/L (5-31); Bilirubin Total 0.3 mg/dL (0.0-1.0); Blood Urea Nitrogen 11 mg/dL (9-16); C Reactive Protein 0.28 mg/dL (< or = 0.50); Calcium 9.5 mg/dL (8.4-10.2); Carbon Dioxide 27 mmol/L (22-29); Chloride 110 mmol/L (96-108); Estimated Glomerular Filt Rate > 60; Glucose Random 91 mg/dL (60-115); Potassium 4.2 mmol/L (3.3-5.1); Sodium 140 mmol/L (135-145); Total Protein 7.5 g/dL (6.5-8.0)
[2024-04-30 14:02] LABS: Erythrocyte Sedimentation Rate 23 MM/HR (0-20)
[2024-05-03 14:18] LABS: TS Negative Control Passed; TS Panel A 0; TS Panel B 0; TS Positive Control Passed; TSpotTB Negative (Negative)
== END 2024-04-30 07:50 | disposition home or self-care (01) ==
LOC: HO.LAB 07:49
PROVIDERS: PCP Internal Medicine; Visit Provider Student in an Organized Health Care Education/Training Program
DX: M05.9 Rheumatoid arthritis with rheumatoid factor, unspecified (principal); Z79.631 Long term (current) use of antimetabolite agent; Z11.7 Encounter for testing for latent tuberculosis infection; R76.8 Other specified abnormal immunological findings in serum; B18.2 Chronic viral hepatitis C; M79.7 Fibromyalgia
CPT/HCPCS: 36415; 80053; 85025; 85652; 86140; 86481; 99212

== ENCOUNTER 2024-04-30 07:49 | Outpatient (AMB) | payer OTHER, SELFPAY ==
--- NOTE | 2024-04-30 07:52 | A.OFFVIS_ITS ---
Vital Signs 04/30/24 08:00 Height 5 ft 7 in Weight 191 lb 9.307 oz BMI 30.0 BP 122/80 Blood Pressure Location Rt brachial Position Sitting Respiration 17 Pulse 104 H Pulse Source Pulse Oximeter Pulse Oximetry (%) 98 Oxygen Delivery Method Room Air Intake Visit Reasons: RA Intake Note: Patient presents for RA. Allergies almond Allergy (Verified 04/30/24 07:55) Itching cruz [cherries] Allergy (Verified 04/30/24 07:55) Itching peach Allergy (Verified 04/30/24 07:55) Itching amoxicillin Adverse Reaction (Mild, Verified 04/30/24 07:55) Confusion Medication List - Last Reconciled 04/30/24 by Chema Avelar MD arm brace (Wrist Brace) wear at night on right wrist baclofen 10 - 20 mg PO TID cetirizine 10 mg PO DAILY cholecalciferol (vitamin D3) 50 mcg PO DAILY fluticasone propionate 50 mcg/actuation (Flonase Allergy Relief) 2 sprays intranasal DAILY folic acid 1 mg PO DAILY gabapentin 400 mg PO TID hydroxyzine pamoate 25 mg PO BID levothyroxine 50 mcg PO DAILY methotrexate sodium 25 mg (10 x 2.5 mg) PO QWEEK prednisone Take 2 tabs daily for 1 month then remain on 1 tab daily trazodone 100 mg PO BEDTIME PRN HPI Comments Details: 43-year-old female with seropositive rheumatoid arthritis returns for follow- up. She remains on methotrexate 25 mg weekly split dose, folic acid 1 mg daily and prednisone 5 mg daily. She did not lower prednisone to 2.5 mg daily as instructed. She states that she continues to have pains in different joints including her hands, wrists, ankles, she would have days when some of her joints were ache for hours or days then they improve. She has morning stiffness lasting 1-2 hours. She takes gabapentin in the morning and it helps her symptoms. Initial history by Dr. Funes: The patient is seen today for evaluation of positive CHRISTINE, positive rheumatoid factor and right wrist pain. She has a history of widespread pains for a number of years. This includes the neck, upper back, lower back, shoulders, hands, wrists, knees, and feet. She had seen Dr. 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 There was wrist pain at that time but no swelling was seen. He felt she had fibromyalgia. Those pains have continued. She also gets intermittent hand numbness. The right wrist pain has been accompanied by some nocturnal sensation of swelling when she awakens in the morning. Every night she gets hand paresthesias right greater than left. There is also occasional paresthesias in the hands during the day. She was taking some naproxen and meloxicam was added to that about 2 weeks ago. There has been no improvement so far. She also apparently had some physical therapy, acupuncture and chiropractic treatment in the past. She has known about having a hepatitis C infection for about 15 years. This was acquired through IV drug abuse. She had a relapse and was on methadone after that and has not received any treatment for the hep C. There is a GI visit her or ID visit planned in the future to look into that. Her her feet are also painful across the 1st MTP joints. They also seem to have intermittent paresthesias. She has notices few dark in spots in the left foot region. [facility] Medical History Numbness of right hand Rheumatoid factor positive CHRISTINE positive Pain and swelling of right wrist Arthralgia of multiple joints Tobacco use Chronic hepatitis C without mention of hepatic coma Fibromyalgia Asthma Surgical History History of liver biopsy Hx of section Family History Mother Ovarian cancer, Onset Age: 54 Sister Endometriosis Social History Alcohol intake: current Alcohol intake frequency: holidays/special occasions only Patient Tobacco Use Status: Current everyday Tobacco user Tobacco use type: Smokeless Tobacco e-Cigarette/Vaping Use: Currently Using Review of Systems [facility] Reports arthralgias, Denies joint swelling and Reports stiffness Physical Exam Vital Signs: Last Vital Signs Pulse 104 H 04/30/24 08:00 Resp 17 04/30/24 08:00 BP 122/80 04/30/24 08:00 Pulse Ox 98 04/30/24 08:00 Oxygen Delivery Method Room Air 04/30/24 08:00 BMI result Body Mass Index 30.0 Const General: cooperative, healthy appearing and comfortable Nutritional Appearance: average body habitus Orientation/consciousness: patient oriented x3 Limitations: no limitations HEENT Head: Yes normocephalic and Yes atraumatic Resp Effort & Inspection: normal respiratory effort and able to speak in complete sentences Auscultation: clear to auscultation bilaterally Cardio Rate: regular rate Rhythm: regular rhythm Skin General skin exam: no rashes or lesions noted Neuro General: patient oriented x3 Extrem Other: No wrist swelling or tenderness bilaterally today Left wrist pain with full flexion Right 2nd through 5th MCP and PIP tenderness, there is no significant swelling. there is DIP tenderness but it is much milder Positive MCP squeeze test right hand Left 2nd and 3rd MCP tenderness there is no significant swelling Normal pain-free range of motion of elbows and shoulders Bilateral ankle tenderness to palpation Bilateral tender bunions Right 1st through 5th MTP tenderness Patient global 6 Physician global 5 Total tender joint count:17 total CDAI: 28 Assessment & Plan Assessment & Plan (1) Seropositive rheumatoid arthritis: Comment: +RF -ve CCP dx 07/2023 MTX 07/2023 incomplete response Code(s): M05.9 - Rheumatoid arthritis with rheumatoid factor, unspecified Category: Medical Plan: 43-year-old female with seropositive RA returns for follow-up. On methotrexate 25 mg once weekly split dose and prednisone 5 mg daily. Doing better but continues to have numerous tender joints. We will need to advance therapy and add bDMARDs Discussed risks and benefits of Enbrel. Patient agreed to proceed. Will start prior authorization for Enbrel Check blood work today and adjust methotrexate dose accordingly . 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 Patient using Nexplanon for contraception (3) CHRISTINE positive: Code(s): R76.8 - Other specified abnormal immunological findings in serum Category: Medical Plan: Sub serologies are negative, can be related to history of hepatitis-C (4) Chronic hepatitis C without mention of hepatic coma: Code(s): B18.2 - Chronic viral hepatitis C Category: Medical Qualifiers: Hepatic coma status: without hepatic coma Qualified Code(s): B18.2 - Chronic viral hepatitis C Plan: Completed hepatitis C treatment and viral load was undetected (5) Fibromyalgia: Code(s): M79.7 - Fibromyalgia Category: Medical Plan: Discussed in detail in previous visits She is on gabapentin which provided some relief Plan I spent 25 minutes reviewing patient's chart, evaluating patient, placing orders, ordering diagnostic workup, counseling patient and documenting in the chart Orders: Orders Complete Blood Count Auto Diff 3 Months M05.9 - Rheumatoid arthritis with rheumatoid factor, unspecified, Z79.631 - terminal 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
[2024-04-30 08:00] VITALS: BP 122/80; PULSE 104; RESP 17; O2SAT 98
== END 2024-04-30 08:30 | disposition home or self-care (01) ==
LOC: HO.RHE 07:49
PROVIDERS: PCP Internal Medicine; Visit Provider Student in an Organized Health Care Education/Training Program
DX: M05.79 Rheumatoid arthritis with rheumatoid factor of multiple sites without organ or systems involvement (principal); Z79.631 Long term (current) use of antimetabolite agent; R76.8 Other specified abnormal immunological findings in serum; B18.2 Chronic viral hepatitis C; M79.7 Fibromyalgia
CPT/HCPCS: 99214; G2211

== ENCOUNTER 2024-09-10 08:00 | Outpatient (AMB) | payer OTHER, SELFPAY ==
--- NOTE | 2024-09-10 08:03 | A.OFFVIS_ITS ---
Vital Signs 09/10/24 08:12 Height 5 ft 7 in Weight 179 lb 0.246 oz BMI 28.0 BP 115/80 Blood Pressure Location Lt brachial Position Sitting Respiration 16 Pulse 74 Pulse Source Pulse Oximeter Pulse Oximetry (%) 99 Oxygen Delivery Method Room Air Intake Visit Reasons: RA Intake Note: Patient presents for RA follow up. Allergies almond Allergy (Verified 09/10/24 08:09) Itching cruz [cherries] Allergy (Verified 09/10/24 08:09) Itching peach Allergy (Verified 09/10/24 08:09) Itching amoxicillin Adverse Reaction (Mild, Verified 09/10/24 08:09) Confusion Medication List - Last Reconciled 09/10/24 by Swati Mccarthy MD arm brace (Wrist Brace) wear at night on right wrist azithromycin mg PO DIRECTED baclofen 10 - 20 mg PO TID cetirizine 10 mg PO DAILY cholecalciferol (vitamin D3) 50 mcg PO DAILY etanercept (Enbrel SureClick) 50 mg subcut QWEEK fluticasone propionate 50 mcg/actuation (Flonase Allergy Relief) 2 sprays intranasal DAILY folic acid 1 mg PO DAILY gabapentin 400 mg PO TID hydroxyzine pamoate 25 mg PO BID levothyroxine 50 mcg PO DAILY methotrexate sodium 25 mg (10 x 2.5 mg) PO QWEEK prednisone 2.5 mg PO DAILY trazodone 100 mg PO BEDTIME PRN HPI Comments Details: Patient is a 44-year-old female with hypothyroidism, chronic hepatitis-C, fibromyalgia and seropositive rheumatoid arthritis here today for follow up Interval History: Patient last seen 04/30/[address] Avelar. At that time she was following up for her seropositive rheumatoid arthritis. She was on methotrexate 25 mg weekly split dose as well as 5 mg of prednisone. She was instructed to lower the prednisone from 5 mg to 2.5 however she did not do this. She continued to complain of polyarticular joint pain as well as 1-2 hours of morning stiffness. Her exam showed moderate to severe seed I of 28. Plan was to advance her therapy by starting Enbrel. Today, Patient has not started her Enbrel and discontinued her methotrexate due to current tooth infection Currently complaining of polyarticular joint pain Rheumatologic History: Initial history by Dr. Funes: The patient is seen today for evaluation of positive CHRISTINE, positive rheumatoid factor and right wrist pain. She has a history of widespread pains for a number of years. This includes the neck, upper back, lower back, shoulders, hands, wrists, knees, and feet. She had seen Dr. Tapia, a television maintenance man, back in 2011. There was wrist pain at that time but no swelling was seen. He felt she had fibromyalgia. Those pains have continued. She also gets intermittent hand numbness. The right wrist pain has been accompanied by some nocturnal sensation of swelling when she awakens in the morning. Every night she gets hand paresthesias right greater than left. There is also occasional paresthesias in the hands during the day. She was taking some naproxen and meloxicam was added to that about 2 weeks ago. There has been no improvement so far. She also apparently had some physical therapy, acupuncture and chiropractic treatment in the past. She has known about having a hepatitis C infection for about 15 years. This was acquired through IV drug abuse. She had a relapse and was on methadone after that and has not received any treatment for the hep C. There is a GI visit her or ID visit planned in the future to look into that. Her her feet are also painful across the 1st MTP joints. They also seem to have intermittent paresthesias. She has notices few dark in spots in the left foot region. Current Rheumatology Medication(s): Enbrel 50mg SC weekly (has not started) Methotrexate 25mg weekly split dose Folic acid 1 mg daily [facility] Medical History Numbness of right hand Rheumatoid factor positive CHRISTINE positive Pain and swelling of right wrist Arthralgia of multiple joints Tobacco use Chronic hepatitis C without mention of hepatic coma Fibromyalgia Asthma Surgical History History of liver biopsy Hx of section Family History Mother Ovarian cancer, Onset Age: 54 Sister Endometriosis Social History Alcohol intake: current Alcohol intake frequency: holidays/special occasions only Patient Tobacco Use Status: Current everyday Tobacco user Tobacco use type: Smokeless Tobacco e-Cigarette/Vaping Use: Currently Using Review of Systems Const Details: Review of Systems Constitutional: Denies fever, chills, weight loss ENT: Denies vision changes, eye pain or eye redness, dental caries, dry mouth GI: Denies nausea, vomiting, diarrhea, abdominal pain, change in BM Pulm: Denies SOB, DARBY, hemoptysis, wheezing Cards: Denies chest pain, palpitations Skin: Denies Raynaud's, rash, nail changes, photosensitivity, 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 Well appearing and in no apparent painful distress HEENT Conjunctiva and sclera clear. ?Pupils equal round and reactive to light. ?No lymphadenopathy. ? CHEST/RESPIRATORY SYSTEM Normal respiratory effort and able to speak in complete sentences. ?Clear to auscultation bilaterally. ?No crackles, rales, rhonchi, wheezes heard. CARDIAC SYSTEM Regular rate and rhythm. ?S1 and S2 heard no murmurs. ?Radial pulses intact bilaterally MSK Hands: ?Able to make a fist. Tenderness to palpation of the MCPs and PIPs bilaterally. ? Wrists: ?Full range of motion at the wrists but tenderness to palpation without swelling noted. Elbows: Full range of motion. No warmth or increased erythema. No swelling but tenderness to palpation Shoulders: Full range of active range of motion bilaterally. Tenderness to palpation of bilateral AC joints. Knees: ?Full range of motion. ?No tenderness, swelling, increased warmth or erythema.?No effusion or crepitations Ankles: Full range of motion. ?No tenderness, swelling, increased warmth or erythema.? Feet: ?Negative squeeze test. ?No tenderness to palpation or swelling of the MTPs. Tender points:?Tenderness to palpation of the bilateral trapezius, s upraspinatus, greater trochanters, anterior costochondral junctions, bilateral gluteal areas, bilateral suboccipital muscle insertions SKIN Skin intact without rashes. Results Reviewed Results Reviewed: Laboratory Tests 04/30/24 12:50 WBC 12.4 H RBC 3.80 L Hgb 11.6 L Hct 34.4 L Plt Count 390 D ESR 23 H Sodium 140 Potassium 4.2 Chloride 110 H Carbon Dioxide 27 BUN 11 Creatinine 0.86 Total Bilirubin 0.3 AST 19 ALT 11 Alkaline Phosphatase 71 C-Reactive Protein 0.28 Rheumatology Labs 03/22/23 07/18/23 07:40 16:30 Rheumatoid Factor 16.8 H Cycl Citrul Peptide IgG <16 SS-A/Ro Antibody <1.0 NEG SS-B/La Antibody <1.0 NEG Sm (Benitez) Antibody <1.0 NEG SM/LACE ROLLER OPERATOR IgG Antibody <1.0 NEG Double Strand DNA Ab <1 Complement C3 146 Complement C4 16 Infectious serologies 04/30/24 12:50 TB Test (T-Spot) Com Negative Assessment & Plan Assessment & Plan (1) Seropositive rheumatoid arthritis: Comment: +RF -ve CCP dx 07/2023 MTX 07/2023 incomplete response Code(s): M05.9 - Rheumatoid arthritis with rheumatoid factor, unspecified Category: Medical Plan: #Seropositive RA Patient is a 44-year-old female with seropositive rheumatoid arthritis here today for follow up. Currently not on any immunosuppressive medication on a background of currently treating a tooth infection. Agreed that she should hold off on immunosuppressive while she is treating the infection. She was able to wean herself off prednisone which I am happy about. Patient completes antibiotics and a week and she will schedule a nurse visit to teach her how to inject Enbrel. We will decrease her methotrexate from 25mg to 15 mg along with the Enbrel weekly Plan - Enbrel 50mg SC weekly - Methotrexate 15mg weekly - Folic acid 1mg daily - Labs today: CBC, CMP, ESR, CRP, hepatitis panel, Hep C viral load - RTC 3 months (2) Fibromyalgia: Code(s): M79.7 - Fibromyalgia Category: Medical Plan: #Fibromyalgia Patient with fibromyalgia complicating her rheumatoid arthritis. Currently on gabapentin and. Since her rheumatoid arthritis is not currently well-controlled it is on clear how much of her pain is due to her uncontrolled rheumatoid arthritis versus her fibromyalgia. We will try to control her rheumatoid arthritis 1st before adding any new medications. 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 Limit alcohol and avoid Bactrim ? Monitoring: ?CBC, BMP, LFTs every 3-4 months and hepatitis serologies as needed (4) Encounter for monitoring of etanercept therapy: Code(s): Z51.81 - Encounter for therapeutic drug level monitoring; Z79.620 - [facility] (current) use of immunosuppressive biologic Plan: #Long-term Use of TNF Inhibitors: Enbrel Discussed with the patient the benefits and risks of TNF inhibitors for the management of the rheumatic condition Benefits include reduce pain, maintenance of remission and reduction of flares as well as ?progression of the disease Risks include injection sites/infusion reactions, serious infections (such as bacterial infections, opportunistic infections), malignancy, delaminating syndromes, autoimmune phenomena, CHF exacerbations, palmar plantar psoriasis and cytopenias Recommended rotating injection sites, and holding medication during and for up to 1 week after resolution of a febrile illness or open skin wound Plan I spent 30 minutes reviewing the record and labs, taking a history, examining the patient, discussing the treatment plan, ordering diagnostic work up and documenting in the medical record Medications: Changed From methotrexate sodium 25 mg (10 x 2.5 mg) PO QWEEK 120 tabs 0RF M05.9 - Rheumatoid arthritis with rheumatoid factor, unspecified To methotrexate sodium 15 mg (6 x 2.5 mg) PO QWEEK 90 days 78 tabs 1RF M05.9 - Rheumatoid arthritis with rheumatoid factor, unspecified Refilled etanercept (Enbrel SureClick) 50 mg subcut QWEEK 4 mL 4RF M05.9 - Rheumatoid arthritis with rheumatoid factor, unspecified folic acid 1 mg PO DAILY 90 tabs 1RF Discontinued prednisone Discontinued Reason: Doctor's Order 2.5 mg PO DAILY 90 tabs 1RF M05.9 - Rheumatoid arthritis with rheumatoid factor, unspecified Coding Level of Care Code Est Pt Level 4 (45879) Complex EM visit Add On G2211 Diagnoses Seropositive rheumatoid arthritis M05.9 Fibromyalgia M79.7 [facility] methotrexate user Z79.631 Encounter for monitoring of etanercept therapy Z51.81; Z79.620
--- OUTSIDE RECORDS SUMMARY | 2024-09-10 08:03 | XMS_ITS | Clinical Summary ---
Author Organization [address] [place] [address] [place] [phone] Phone Care Team Providers Care Digital Operations Analyst Name Role Phone Viky Aldrich MD Primary Care Provider Allergies Active Allergy Reactions Criticality Noted Date Comments Amoxicillin 10/25/2022 Pollen Extracts 12/01/2021 Tree Nuts 11/04/2020 Almonds, Tree Nuts Medications acetaminophen (TYLENOL 8 HOUR) 650 mg 8 hr tablet Take 1 tablet (650 mg total) by mouth every 8 (eight) hours if needed. 024 Active albuterol HFA (ProAir HFA) 90 mcg/actuation inhaler Inhale 2 puffs by mouth. 021 Active baclofen (LIORESAL) 10 mg tablet Take 1 tablet (10 mg total) by mouth 3 (three) times a day if needed. Active cloNIDine (CATAPRES) 0.1 mg tablet Take 1 tablet (0.1 mg total) by mouth 3 (three) times a day if needed. 023 Active diclofenac (VOLTAREN) 1 % topical gel APPLY 2 GRAMS TOPICALLY 2 TIMES DAILY NEEDED ( NEEDED FOR PAIN). 024 Active etonogestrel-elu ting contraceptive device (Nexplanon) 68 mg implant subdermal implant Inject 1 each under the skin. 022 Active gabapentin (NEURONTIN) 300 mg capsule Take 1 capsule (300 mg total) by mouth 2 (two) times a day. 023 Active naproxen (NAPROSYN) 500 mg tablet Take 1 tablet (500 mg total) by mouth. 024 Active predniSONE (DELTASONE) 5 mg tablet Take 1 tablet (5 mg total) by mouth 1 (one) time each day. Active traZODone (DESYREL) 100 mg tablet TAKE 1 TO 1 AND 1/2 TABLETS BY MOUTH AT BEDTIME 023 Active fluticasone propionate (FLONASE) 50 mcg/actuation nasal spray SPRAY 2 SPRAYS BY NASAL ROUTE DAILY 48 mL 3 024 Active Additional Information Patient not taking.Reported on 09/02/2024 cholecalciferol (VITAMIN D-3) 50 mcg (2,000 unit) capsule Take 1 capsule (2,000 Units total) by mouth 1 (one) time each day. 90 capsule 025 Active doxycycline (ADOXA) 100 mg tablet Take 1 tablet (100 mg total) by mouth 2 (two) times a day. Take with a full glass of water and do not lie down for at least 30 minutes after for ten days Active EPINEPHrine (EpiPen 2-Jovanny) 0.3 mg/0.3 mL injection Inject 0.3 mL (0.3 mg total) into the thigh if needed for anaphylaxis. 2 each 025 Active ibuprofen (ADVIL,MOTRIN) 800 mg tablet Take 1 tablet (800 mg total) by mouth every 8 (eight) hours if needed for moderate pain. 30 tablet 025 Active cyclobenzaprine (FLEXERIL) 5 mg tablet Take 1 tablet (5 mg total) by mouth at bedtime. 30 tablet 1 025 Active levothyroxine (SYNTHROID, LEVOTHROID) 100 mcg tablet Take 1 tablet (100 mcg total) by mouth 1 (one) time each day. 30 each 2 025 2024 Active cetirizine (ZyrTEC) 10 mg tablet Take 1 tablet (10 mg total) by mouth 1 (one) time each day. 90 tablet 1 025 Active clotrimazole-bet amethasone (LOTRISONE) 1-0.05 % cream Apply topically 2 (two) times a day. 024 2024 Discontinued cyclobenzaprine (FLEXERIL) 5 mg tablet TAKE 1 TABLET BY MOUTH EVERY DAY AT BEDTIME NEEDED FOR MUSCLE SPASM FOR UP TO 10 DAYS 023 2024 Discontinued(R eorder) EPINEPHrine (EpiPen 2-Jovanny) 0.3 mg/0.3 mL injection Inject 0.3 mL (0.3 mg total) into the thigh. 021 2024 Discontinued(R eorder) ibuprofen (ADVIL,MOTRIN) 800 mg tablet Take 1 tablet (800 mg total) by mouth every 8 (eight) hours if needed. 024 2024 Discontinued(R eorder) levothyroxine (SYNTHROID, LEVOTHROID) 100 mcg tablet Take 1 tablet (100 mcg total) by mouth 1 (one) time each day. 024 2024 Discontinued(R eorder) cetirizine (ZyrTEC) 10 mg tablet Take 1 tablet (10 mg total) by mouth 1 (one) time each day. 90 each 025 2024 Discontinued cetirizine (ZyrTEC) 10 mg tablet TAKE 1 TABLET BY MOUTH 1 TIME EACH DAY. 30 tablet 025 2024 Discontinued(R eorder) cetirizine (ZyrTEC) 10 mg tablet Take 1 tablet (10 mg total) by mouth 1 (one) time each day. 30 tablet 025 2024 Discontinued(R eorder) Active Problems Problem Noted Date Diagnosed Date Seropositive rheumatoid arth ritis ([facility] V24, [facility] V28) 09/19/2023 Varicose veins of both lower extremities with pa in 09/19/2023 Dermoid cyst of left ovary 12/09/2022 CHRISTINE positive 09/18/2022 Fatigue 09/18/2022 Hypothyroidism 09/18/2022 Myalgia 09/18/2022 Seasonal allergies 11/04/2020 Asthma 10/26/2019 Heroin dependence ([facility] V24, [facility] V28) 01/2013 Allergic rhinitis 01/26/2012 Chronic hepatitis C virus in fection ([facility]/HCC V24, CMS/HCC V28) 10/04/2011 Overview (01/10/2024): Chronic Hepatitis C, Genotype 4 A. Treatment started 01/29/2024 with Sofosbuvir-Velpatasvir 400-100 mg tabs. Take 1 tab daily for 12 weeks. End date 04/22/2023. 2011 Liver biopsy: Mild chronic hep C, at [facility] Fibromyalgia 10/04/2011 Encounters Date Type Department Care Team Description 09/02/2024 8:30 AM EDT Office Visit Adult Medicine [address] [phone] José Miguel Pedersen MD Hypothyroidism, unspecified type (Primary Dx); Fibromyalgia; Seasonal allergies; Chronic hepatitis C with hepatic coma (CMS/HCC V24, CMS/HCC V28); Seropositive rheumatoid arthritis ([facility]/HCC V24, CMS/HCC V28) 09/02/2024 7:32 AM EDT - 09/02/2024 11:59 PM EDT Hospital Encounter Radiology Department - [address] [phone] Hepatic cirrhosis, unspecified hepatic cirrhosis type, unspecified whether ascites present ([facility]/HCC V24, [facility]/HCC V28) Discharge Disposition: Home or Self Care from Last 3 Months Immunizations Name Administration Dates Next Due Hepatitis A Adult (Havrix; Vaqta) 19yo and older 09/19/2023,03/04/2023 Influenza trivalent, with pr eservative (Fluzone; Afluria) 6mo and older 01/24/2012,03/12/2011 Pneumococcal polysaccharide 23 valent (Pneumovax 23) 2yo and older 09/07/2010 Tdap Tetanus diptheria acell ular pertussis (Boostrix; Adacel) 7yo and older 10/22/2011,09/07/2010 Surgical History Surgery Date Site/Laterality Comments OTHER SURGICAL HISTORY 09/04/2011 PROCEDURE: VT BIOPSY LIVER NEEDLE PERCUTANEOUS; COMMENT: Mild chronic hep C, at [facility] SECTION PROCEDURE: HISTORICAL Medical History Medical History Date Comments Allergic rhinitis 01/26/2012 DX:Allergic rh initis Viral hepatitis C without he patic coma DX:Viral hepatitis C without hepatic coma CHRISTINE positive DX:CHRISTINE positive Family History Medical History Relation Name Comments No Known Problems Brother 1 No Known Problems Brother 2 No Known Problems Maternal Grandfather No Known Problems Maternal Grandmother Ovarian cancer Mother 54 Other: Endometriosis Sister Breast cancer Neg Hx Cancer of Small Bowel Neg Hx Colon cancer Neg Hx Diabetes Neg Hx Heart attack Neg Hx Kidney cancer Neg Hx Pancreatic cancer Neg Hx Uterine cancer Neg Hx Relation Name Status Comments Brother 1 Alive Brother 2 Alive Daughter Kallie Alive 2008 Maternal Grandfather Maternal Grandmother Alive Mother Sister Alive Social History Tobacco Use Types Packs/Day Years Used Date Smoking Tobacco: Every Day Smokeless Tobacco: Never Tobacco Cessation:Ready to Q uit: Not Asked; Counseling Given: Not Answered Alcohol Use Standard Drinks/Week Comments Yes 0 (1 standard drink = 0.6 oz pur e alcohol) Comments Unknown Sex and Gender Information Value Date Recorded Sex Assigned at Female 05/04/2024 11:20 AM EST Legal Sex Female 11:37 PM EST Gender Identity Female 05/04/2024 11:20 AM EST Sexual Orientation Straight 08/26/2024 7: 45 AM EDT Obstetrics History Last Filed Vital Signs Vital Sign Reading Time Taken Comments Blood Pressure 108/64 09/02/2024 8:25 AM EDT Pulse 80 09/02/2024 8:25 AM EDT Temperature 36.3 ??C (97.3 ??F) 09/02/2024 8:25 AM ED T Respiratory Rate 20 09/02/2024 8:25 AM EDT Oxygen Saturation - - Inhaled Oxygen Concentration - - Weight 81.2 kg (179 lb) 09/02/2024 8:25 AM EDT Height 170.2 cm (5' 7 ) 09/02/2024 8:25 AM EDT Body Mass Index 28.04 09/02/2024 8:25 AM EDT Plan of Treatment Upcoming Encounters Date Type Department Care Team (Late st Contact Info) Description 09/16/2024 2:00 PM EDT Office Visit Gastroenterology - [place] [address] [facility] [address] [facility] [address] [place] [phone] Petra Borden PA [address] [facility] [address] [place] [address] 09/17/2024 2:30 PM EDT Office Visit Vascular Surgery - [place] [address] [place] [phone] Meghann Valladares PA [address] [facility] [address] [place] [address] 12/31/2024 4:30 PM EDT [facility] [address] [place] [phone] Viky Aldrich MD [address] [place] [address] Health Maintenance Due Date Last Done Comments COVID-19 Vaccine (#1) 1987 Hepatitis B Vaccines (1 of 3 - 19+ 3-dose series) 2001 Pneumococcal Vaccine: Pediatrics (0 to 5 Years) and At-Risk Patients (6 to 64 Years) (2 of 2 - PCV) 09/08/2011 09/07/2010 DTaP,Tdap,and Td Vaccines (3 - Td or Tdap) 10/21/2021 10/22/2011, 09/07/2010 Cholesterol Screening (Lipid Panel) 03/24/2022 Depression Screening 03/24/2022 HIV Screening 03/24/2022 Hepatitis C Screening 03/24/2022 Social Influencers of Health Screening 03/24/2022 Cervical Cancer Screening: P ap Smear 11/21/2024 11/21/2021 Influenza Vaccine (Season Ended) 2024 01/24/2012, 03/12/2011 Breast Cancer Screening 02/26/2025 02/26/2023 Hepatitis A Vaccines Completed 09/19/2023, 03/04/2023 HIB Vaccines Aged Out No longer eligi ble based on patient's age to complete this topic HPV Vaccines Aged Out No longer eligi ble based on patient's age to complete this topic IPV Vaccines Aged Out No longer eligi ble based on patient's age to complete this topic MMR Vaccines Aged Out No longer eligi ble based on patient's age to complete this topic Meningococcal ACWY Vaccine Aged Out N o longer eligible based on patient's age to complete this topic Meningococcal B Vaccine Aged Out No l onger eligible based on patient's age to complete this topic RSV Immunization Patients Under 20 months Aged Out No longer eligible b ased on patient's age to complete this topic Varicella Vaccines Aged Out No longer eligible based on patient's age to complete this topic Procedures Procedure Name Priority Date/Time Associated Diagnosis Comments CBC WITH AUTO DIFFERENTIAL Routine 09/02/2024 9:13 AM EDT Hepatic cirrhosis, unspecified hepatic cirrhosis type, unspecified whether ascites present (CMS/HCC V24, CMS/HCC V28) CBC AND DIFFERENTIAL Routine 09/02/2024 9:13 AM EDT Hepatic cirrhosis, unspecified hepatic cirrhosis type, unspecified whether ascites present (CMS/HCC V24, CMS/HCC V28) ALPHA FETOPROTEIN TUMOR MARKER Routine 09/02/2024 9:13 AM EDT Hepatic cirrhosis, unspecified hepatic cirrhosis type, unspecified whether ascites present (CMS/HCC V24, CMS/HCC V28) COMPREHENSIVE METABOLIC PANEL Routine 09/02/2024 9:13 AM EDT Hepatic cirrhosis, unspecified hepatic cirrhosis type, unspecified whether ascites present (CMS/HCC V24, CMS/HCC V28) FERRITIN Routine 09/02/2024 9:13 AM EDT Hepatic cirrhosis, unspecified hepatic cirrhosis type, unspecified whether ascites present (CMS/HCC V24, CMS/HCC V28) IRON Routine 09/02/2024 9:13 AM EDT Hepatic cirrhosis, unspecified hepatic cirrhosis type, unspecified whether ascites present (CMS/HCC V24, CMS/HCC V28) PROTHROMBIN TIME WITH INR Routine 09/02/2024 9:13 AM EDT Hepatic cirrhosis, unspecified hepatic cirrhosis type, unspecified whether ascites present (CMS/HCC V24, CMS/HCC V28) THYROID STIMULATING HORMONE WITH REFLEX TO FREE T4 AND FREE T3 Routine 09/02/2024 9:13 AM EDT Hypothyroidism, unspecified type US ABDOMEN LIMITED Routine 09/02/2024 8: 41 AM EDT Hepatic cirrhosis, unspecified hepatic cirrhosis type, unspecified whether ascites present (CMS/HCC V24, CMS/HCC V28) SCREENING MAMMOGRAPHY BI 2-VIEW BREAST INC CAD Routine 02/26/2023 7:34 PM EST Encounter for screening mammogram for malignant neoplasm of breast PAP SMEAR Routine 11/21/2021 from Last 3 Months or Most Recently Relevant to Health Maintenance Results * Thyroid stimulating hormone with reflex to free t4 and free t3 (09/02/2024 9:13 AM EDT) [facility] TSH 3.78 0.40 - 4.00 mcIU/mL LAB CHEMISTRY METHOD 09/02/2024 2:44 PM EDT [facility] Blood Venous blood specimen / Unknown Venipuncture / Unknown 09/02/2024 9:13 AM EDT 09/02/2024 9:13 AM EDT us José Miguel Pedersen MD LAB BLOOD ORDERABLES Final Resul t [facility] [address] [place] [address], [place] [phone] * (ABNORMAL) CBC auto differential (09/02/2024 9:13 AM EDT) [facility] WBC 8.4 4.8 - 10.8 K/mcL LAB HEMETOLOGY METHOD 09/02/2024 10:15 AM EDT [facility] RBC 4.00 3.80 - 4.80 M/mcL LAB HEMETOLOGY METHOD 09/02/2024 10:15 AM EDT [facility] Hemoglobin 11.4(L) 11.5 - 16.0 g/dL LAB HEMETOLOGY METHOD 09/02/2024 10:15 AM EDT [facility] Hematocrit 35.4 35.0 - 47.0 % LAB HEMETOLOGY METHOD 09/02/2024 10:15 AM [facility] MCV 88.3 79.0 - 98.0 FL LAB HEMETOLOGY METHOD 09/02/2024 10:15 AM [facility] MCH 28.4 27.0 - 32.0 pcg LAB HEMETOLOGY METHOD 09/02/2024 10:15 AM [facility] MCHC 32.2 32.0 - 37.0 g/dL LAB HEMETOLOGY METHOD 09/02/2024 10:15 AM [facility] RDW 13.5 11.0 - 15.0 % LAB HEMETOLOGY METHOD 09/02/2024 10:15 AM [facility] Platelets 288 130 - 400 K/mcL LAB HEMETOLOGY METHOD 09/02/2024 10:15 AM [facility] MPV 10.5 7.0 - 11.0 FL LAB HEMETOLOGY METHOD 09/02/2024 10:15 AM [facility] NRBC 0.0 <1.0 % LAB HEMETOLOGY METHOD 09/02/2024 10:15 AM [facility] NRBC Absolute 0.00 <0.10 K/mcL LAB HEMETOLOGY METHOD 09/02/2024 10:15 AM [facility] Neutrophils Relative 66.0 % LAB HEMETOLOGY METHOD 09/02/2024 10:15 AM [facility] Lymphocytes Relative 25.5 % LAB HEMETOLOGY METHOD 09/02/2024 10:15 AM [facility] Monocytes Relative 5.5 % LAB HEMETOLOGY METHOD 09/02/2024 10:15 AM [facility] Eosinophils Relative 2.1 % LAB HEMETOLOGY METHOD 09/02/2024 10:15 AM [facility] Basophils Relative 0.7 % LAB HEMETOLOGY METHOD 09/02/2024 10:15 AM EDT [facility] Immature Granulocytes Relative 0.2 % LAB HEMETOLOGY METHOD 09/02/2024 10:15 AM EDT [facility] Neutrophils Absolute 5.52 1.50 - 7.00 K/mcL LAB HEMETOLOGY METHOD 09/02/2024 10:15 AM EDT [facility] Lymphocytes Absolute 2.14 1.00 - 5.00 K/mcL LAB HEMETOLOGY METHOD 09/02/2024 10:15 AM EDT [facility] Monocytes Absolute 0.46 0.20 - 1.00 K/mcL LAB HEMETOLOGY METHOD 09/02/2024 10:15 AM EDT [facility] Eosinophils Absolute 0.18 0.00 - 0.50 K/mcL LAB HEMETOLOGY METHOD 09/02/2024 10:15 AM EDT [facility] Basophils Absolute 0.06 0.00 - 0.20 K/mcL LAB HEMETOLOGY METHOD 09/02/2024 10:15 AM EDT [facility] Immature Granulocytes Absolute 0.02 0.00 - 0.03 K/mcL LAB HEMETOLOGY METHOD 09/02/2024 10:15 AM EDT [facility] Blood Venous blood specimen / Unknown Venipuncture / Unknown 09/02/2024 9:13 AM EDT 09/02/2024 9:13 AM EDT us Luis Antonio JAIME LAB BLOOD ORDERABLES Final Resu lt [facility] [address] [place] [address], * (ABNORMAL) Alpha fetoprotein tumor marker (09/02/2024 9:13 AM EDT) AFP 8.7(H) 0.0 - 8.0 ng/mL LAB CHEMISTRY METHOD 09/02/2024 2:44 PM EDT [facility] Blood Venous blood specimen / Unknown Venipuncture / Unknown 09/02/2024 9:13 AM EDT 09/02/2024 9:13 AM EDT Narrative [facility] - 09/02/2024 2:44 PM EDT The Siemens Advia Centaur Chemiluminescent Immunoassay is used. Results obtained with different assay methods or kits cannot be used interchangeably. Results cannot be interpreted as absolute evidence of the presence or absence of malignant disease. us Luis Antonio JAIME LAB BLOOD ORDERABLES Final Resu lt Performing Organization Address [facility] Co de Phone Number [facility] [address] [place] [address], [place] [phone] * Prothrombin time with INR (09/02/2024 9:13 AM EDT) Protime 11.0 10.6 - 13.9 sec LAB COAGULATION METHOD 09/02/2024 10:19 AM EDT [facility] INR 0.9 LAB COAGULATION METHOD 09/02/2024 10:19 AM EDT [facility] Blood Venous blood specimen / Unknown Venipuncture / Unknown 09/02/2024 9:13 AM EDT 09/02/2024 9:13 AM EDT us Luis Antonio JAIME LAB BLOOD ORDERABLES Final Resu lt Performing Organization Address [facility]/ZIP Co de Phone Number [facility] [address] [place] [address], [place] [phone] * (ABNORMAL) Iron (09/02/2024 9:13 AM EDT) Iron 35(L) 40 - 150 mcg/dL LAB CHEMISTRY METHOD 09/02/2024 1:17 PM EDT [facility] Blood Venous blood specimen / Unknown Venipuncture / Unknown 09/02/2024 9:13 AM EDT 09/02/2024 9:13 AM EDT Luis Antonio JAIME LAB BLOOD ORDERABLES Final Resu lt [facility] [address] [place] [address], [place] [phone] * Ferritin (09/02/2024 9:13 AM EDT) Ferritin 8 8 - 252 ng/mL LAB CHEMISTRY METHOD 09/02/2024 1:24 PM EDT [facility] Blood Venous blood specimen / Unknown Venipuncture / Unknown 09/02/2024 9:13 AM EDT 09/02/2024 9:13 AM EDT Luis Antonio JAIME LAB BLOOD ORDERABLES Final Resu lt Performing Organization Address City/[facility]/ZIP Co de Phone Number [facility] [address] [place] [address], [place] [phone] * Comprehensive metabolic panel (09/02/2024 9:13 AM EDT) Sodium 141 133 - 145 mmol/L LAB CHEMISTRY METHOD 09/02/2024 1:17 PM EDT [facility] Potassium 3.6 3.5 - 5.5 mmol/L LAB CHEMISTRY METHOD 09/02/2024 1:17 PM EDT [facility] Chloride 109 96 - 110 mmol/L LAB CHEMISTRY METHOD 09/02/2024 1:17 PM EDT [facility] CO2 24 21 - 32 mmol/L LAB CHEMISTRY METHOD 09/02/2024 1:17 PM EDT [facility] Anion Gap 8 3 - 11 LAB CHEMISTRY METHOD 09/02/2024 1:17 PM [facility] Glucose 80 70 - 100 mg/dL LAB CHEMISTRY METHOD 09/02/2024 1:17 PM [facility] BUN 9 5 - 25 mg/dL LAB CHEMISTRY METHOD 09/02/2024 1:17 PM [facility] Creatinine 0.81 0.50 - 1.10 mg/dL LAB CHEMISTRY METHOD 09/02/2024 1:17 PM [facility] eGFR 93 >=60 mL/min/1. 73m2 LAB CHEMISTRY METHOD 09/02/2024 1:17 PM [facility] Comment:Calculation based on the Chronic Kidney Disease Epidemiology Collaboration (CKD-EPI) equation refit without adjustment for race. BUN/Creatinine Ratio 11.1 LAB CHEMISTRY METHOD 09/02/2024 1:17 PM [facility] Calcium 8.7 8.5 - 10.5 mg/dL LAB CHEMISTRY METHOD 09/02/2024 1:17 PM [facility] AST (SGOT) 12 10 - 42 unit/L LAB CHEMISTRY METHOD 09/02/2024 1:17 PM [facility] ALT (SGPT) 13 10 - 60 unit/L LAB CHEMISTRY METHOD 09/02/2024 1:17 PM [facility] Alkaline Phosphatase 88 42 - 121 unit/L LAB CHEMISTRY METHOD 09/02/2024 1:17 PM [facility] Total Protein 7.2 6.0 - 8.0 g/dL LAB CHEMISTRY METHOD 09/02/2024 1:17 PM [facility] Albumin 3.6 3.2 - 5.0 g/dL LAB CHEMISTRY METHOD 09/02/2024 1:17 PM [facility] Total Bilirubin 0.3 0.0 - 1.4 mg/dL LAB CHEMISTRY METHOD 09/02/2024 1:17 PM [facility] Blood Venous blood specimen / Unknown Venipuncture / Unknown 09/02/2024 9:13 AM EDT 09/02/2024 9:13 AM EDT us Luis Antonio JAIME LAB BLOOD ORDERABLES Final Resu lt [facility] [address] [place] [address], [place] [phone] * US Abdomen Limited (09/02/2024 8:41 AM EDT) Anatomical Region Laterality Modality Body Ultrasound 09/02/2024 9:50 AM EDT Impressions 09/02/2024 10:10 AM EDT Hepatocellular disease. -------- FINAL REPORT -------- Dictated By: Peyton Jimenez Dictated Date: 09/02/2024 09:50 ET Assigned Physician: Peyton Jimenez Reviewed and Electronically Signed By: Peyton Jimenez Signed Date: 09/02/2024 10:10 ET Workstation ID: [id number] Transcribed By: Self Edit Transcribed Date: 09/02/2024 09:50 ET Narrative 09/02/2024 10:10 AM EDT ABDOMINAL ULTRASOUND-LIMITED History: ??Cirrhosis. Comparison: Right upper quadrant ultrasound 09/13/2023 FINDINGS: There is no evidence of cholelithiasis. The common bile duct is not dilated, measuring 4 mm. ??The gallbladder wall is not thickened. No pericholecystic fluid is seen. No ascites are seen. The visualized pancreas is normal in size and demonstrates normal echotexture. The liver measures 16.4 cm in length and demonstrates heterogeneous echotexture. No focal lesions are seen in the liver and there is no evidence of intrahepatic ductal dilation. Normal hepatopedal flow is seen in the main portal vein. No evidence of hydronephrosis, mass, or calculus was seen in the right kidney. ??The right kidney measures 11.6 cm in greatest length. Procedure Note Peyton Jimenez MD - 09/02/2024 ABDOMINAL ULTRASOUND-LIMITED History: Cirrhosis. Comparison: Right upper quadrant ultrasound 09/13/2023 FINDINGS: There is no evidence of cholelithiasis. The common bile duct isnot dilated, measuring 4 mm. The gallbladder wall is not thickened. Nopericholecystic fluid is seen. No ascites are seen. The visualized pancreas is normal in size and demonstrates normalechotexture. The liver measures 16.4 cm in length and demonstrates heterogeneousechotexture. No focal lesions are seen in the liver and there is noevidence of intrahepatic ductal dilation. Normal hepatopedal flow is seenin the main portal vein. No evidence of hydronephrosis, mass, or calculus was seen in the rightkidney. The right kidney measures 11.6 cm in greatest length. IMPRESSION: Hepatocellular disease. -------- FINAL REPORT -------- Dictated By: Peyton Jimenez Dictated Date: 09/02/2024 09:50 ET Assigned Physician: Peyton Jimenez Reviewed and Electronically Signed By: Peyton Jimenez Signed Date: 09/02/2024 10:10 ET Workstation ID: [id number] Transcribed By: Self Edit Transcribed Date: 09/02/2024 09:50 ET us Luis Antonio JAIME IMG US PROCEDURES Final Result * SCREENING MAMMOGRAPHY BI 2-VIEW BREAST INC CAD (02/26/2023 7:34 PM EST) Anatomical Region Laterality Modality Radiographic Meli ging 09/25/2022 4:01 PM EDT Narrative 02/27/2023 11:17 AM EST This is a summary report. The complete report is available in the patient's medical record. If you cannot access the medical record, please contact the sending organization for a detailed fax or copy. Study: SCREENING MAMMOGRAPHY BI 2-VIEW BREAST INC CAD Technique: Bilateral full-field digital screening mammography is obtained and read in conjunction with computer aided detection. ??Tomosynthesis as well as 2D C-View imaging were obtained. Comparison: None. ??This is a baseline study. Breast composition: The breast tissue is heterogeneously dense, which may obscure small masses. Bilateral breasts: No significant masses, suspicious calcifications or other abnormalities are seen in either breast. IMPRESSION: Impression: Bilateral breasts: Negative, no specific mammographic evidence of malignancy. ??Normal interval follow-up is recommended in 12 months. BI-RADS: Category 1: Negative Procedure Note Lucrecia Howe MD - 05/21/2023 This is a summary report. The complete report is available in thepatient's medical record. If you cannot access the medical record, pleasecontact the sending organization for a detailed fax or copy. Study: SCREENING MAMMOGRAPHY BI 2-VIEW BREAST INC CAD Technique: Bilateral full-field digital screening mammography is obtainedand read in conjunction with computer aided detection. Tomosynthesis aswell as 2D C-View imaging were obtained. Comparison: None. This is a baseline study. Breast composition: The breast tissue is heterogeneously dense, which mayobscure small masses. Bilateral breasts: No significant masses, suspicious calcifications orother abnormalities are seen in either breast. IMPRESSION: Impression: Bilateral breasts: Negative, no specific mammographic evidence ofmalignancy. Normal interval follow-up is recommended in 12 months. BI-RADS: Category 1: Negative us Viky Aldrich MD IMG XR PROCEDURES Final Res ult * Pap smear (11/21/2021) 11/21/2021 Narrative HISTORICAL TESTING LAB RESULTING AGENCY - 11/28/2021 4:31 PM EDT [id number] THINPREP PAP, IMAGED: NEGATIVE FOR SQUAMOUS INTRAEPITHELIAL LESION AND MALIGNANCY . MIREYA DAVID(ASCP) (CASE ELECTRONICALLY SIGNED 11 28 2021) RESULT OF [facility]TIMA HIGH RISK HPV ASSAY: HIGH RISK HPV: ??NEGATIVE (SEROTYPES 16,18,31,33,35,39,45,51,52,56,58,59,66,68) COMPLETED ON 2021-11-22 ADEQUACY: SATISFACTORY ENDOCERVICAL/TRANSFORMATION ZONE COMPONENT PRESENT. SOURCE: THINPREP PAP HPV ANY DX: ??REFLEX 16 AND 18, CERVICAL, IMAGED CLINICAL INFORMATION: HPV ANY DIAGNOSIS. Z12.4 Symone Dawn [facility] LAB CYTOLOGY ORDERABLES Final Result HISTORICAL TESTING LAB RESULTING AGENCY from Last 3 Months or Most Recently Relevant to Health Maintenance Insurance [employer] Care Teams Digital Operations Analyst Relationship Specialty Start Date End Date Viky Aldrich MD [address] [place] [id number] PCP - General 07/27/22
[2024-09-10 08:12] VITALS: BP 115/80; PULSE 74; RESP 16; O2SAT 99; BMI 28.0
== END 2024-09-10 08:31 | disposition home or self-care (01) ==
LOC: HO.RHE 08:00
PROVIDERS: PCP Internal Medicine; Visit Provider Student in an Organized Health Care Education/Training Program
DX: M05.79 Rheumatoid arthritis with rheumatoid factor of multiple sites without organ or systems involvement (principal); M79.7 Fibromyalgia; Z79.631 Long term (current) use of antimetabolite agent; Z51.81 Encounter for therapeutic drug level monitoring; Z79.620 Long term (current) use of immunosuppressive biologic
CPT/HCPCS: 99214; G2211

== ENCOUNTER 2024-09-10 08:56 | Outpatient (REF) | payer OTHER, SELFPAY ==
[2024-09-10 09:51] LABS: MANUAL DIFF FLAG NO
[2024-09-10 10:11] LABS: Basophils Absolute Auto 0.1 X10*3/uL (0.0-0.2); Basophils Percent Auto 1.1 % (0-2); Eosinophils Absolute Auto 0.1 X10*3/uL (0.0-0.4); Eosinophils Percent Auto 2.1 % (0-4); Hematocrit 36.7 % (37.0-47.0); Hemoglobin 12.1 g/dl (12.0-16.0); Imm Gran Abs Auto 0.01 X10*3/uL (0.00-0.03); Imm Gran Pct Auto 0.2 % (0.0-0.4); Lymphocytes Absolute Auto 1.9 X10*3/uL (1.2-4.9); Lymphocytes Percent Auto 30.1 % (20-40); Mean Corpuscular Hemoglobin 28.3 pg (27.0-33.0); Mean Corpuscular Volume 85.9 fL (80.0-98.0); Mean Platelet Volume 10.5 fL (9.4-12.3); Monocytes Absolute Auto 0.4 X10*3/uL (0.1-1.2); Monocytes Percent Auto 6.7 % (2-11); Neutrophils Absolute Auto 3.8 x10*3/uL (2.0-8.3); Neutrophils Percent Auto 59.8 % (45-73); Platelet Count 280 X10*3/uL (160-400); Red Blood Count 4.27 X10*6/uL (4.20-5.50); Red Cell Distribution Width 13.5 % (11.0-16.0); White Blood Count 6.3 X10*3/uL (4.8-10.8)
[2024-09-10 10:23] LABS: Alanine Aminotransferase 10 U/L (0-31); Albumin Level 4.4 g/dL (3.5-5.0); Alkaline Phosphatase 81 U/L (39-117); Anion Gap 12 (12-20); Aspartate Amino Transferase 23 U/L (5-31); Bilirubin Total 0.4 mg/dL (0.0-1.0); Blood Urea Nitrogen 10 mg/dL (9-16); C Reactive Protein 0.35 mg/dL (< or = 0.50); Calcium 9.4 mg/dL (8.4-10.2); Carbon Dioxide 26 mmol/L (22-29); Chloride 108 mmol/L (96-108); Estimated Glomerular Filt Rate > 60; Glucose Random 82 mg/dL (60-115); Potassium 3.6 mmol/L (3.3-5.1); Sodium 142 mmol/L (135-145); Total Protein 7.9 g/dL (6.5-8.0)
[2024-09-10 11:00] LABS: Erythrocyte Sedimentation Rate 16 MM/HR (0-20)
[2024-09-10 11:05] LABS: HBS Num1 > 1000.00 mIU/mL (0-7.99); HBc Num1 0.08 S/CO (0.00-0.79); HBsAGNum1 0.32 S/CO (0.00-0.99); Hepatitis A Antibody IgM 0.24 Index (0-0.79); Hepatitis B Core Antibody Nonreactive (Nonreactive); Hepatitis B Surface Antigen Negative (Negative); ~HepC Num1 15.08 S/CO (0.00-0.79); ~Hepatitis A Antibody IgM Nonreactive (Nonreactive); ~Hepatitis B Surface Antibody REACTIVE (Nonreactive); ~Hepatitis C Antibody Reactive (Nonreactive)
[2024-09-12 13:59] LABS: HCV Log PCR <1.18 NOT DETECTED Log IU/mL (NOT DETECTED); HepC Viral Load <15 NOT DETECTED IU/mL (NOT DETECTED)
[2024-09-13 18:58] LABS: TS Negative Control Passed; TS Panel A 0; TS Panel B 0; TS Positive Control Passed; TSpotTB Negative (Negative)
== END 2024-09-10 08:57 | disposition home or self-care (01) ==
LOC: HO.10HDL 08:56
PROVIDERS: Visit Provider Student in an Organized Health Care Education/Training Program
DX: M05.9 Rheumatoid arthritis with rheumatoid factor, unspecified (principal)
CPT/HCPCS: 36415; 80053; 85025; 85652; 86140; 86481; 86704; 86706; 86709; 86803; 87340; 87522; 99212